=== PATIENT | male | born 1950 | race Caucasian/White ===

== ENCOUNTER 2025-05-09 14:42 | Outpatient (CLI) | payer MEDICARE, BC, SELFPAY | END 2025-05-09 14:43 | disposition home or self-care (01) | PROVIDERS: PCP Family Medicine; Visit Provider Family Medicine | DX: M25.552 Pain in left hip (principal) | CPT/HCPCS: A0425; A0433 ==

== ENCOUNTER 2025-05-09 15:56 | Emergency (ER) | payer MEDICARE, BC, SELFPAY ==
--- OUTSIDE RECORDS SUMMARY | 2025-03-26 10:00 | XMS_ITS | Encounter Summary ---
Author Organization [employer] Address [address] [place] [address] Care Team Providers Care Cell Manager Name Role Phone Romulo Zimmer MD Primary Care Provider [phone] Reason for Visit * Reason Comments Lab Encounter Details Date Type Department Care Team (Late st Contact Info) Description 03/26/2025 10:00 AM CDT Nursing Visit [facility] Orthopedic [facility] [address] [place], [place] [address] Nurse, [facility] Screening examination for infectious disease Social History Tobacco Use Types Packs/Day Years Used Date Smoking Tobacco: Former Smokeless Tobacco: Never Comments:Quit smoking: Alcohol Use Standard Drinks/Week Comments Never 0 (1 standard drink = 0.6 oz pur e alcohol) AUDIT-C Answer Date Recorded Q1: How often do you have a drink containing alc ohol? Never 12/08/2020 Average Number of Drinks Not on file 021 Frequency of Binge Drinking Not on file 01/2021 Sex and Gender Information Value Date Recorded Sex Assigned at Not on file Legal Sex Male 11:13 PM CDT Gender Identity Not on file Sexual Orientation Not on file documented as of this encounter Progress Notes * Diogenes Lee RN - 03/26/2025 10:00 AM CDTAddended by: DIOGENES LEE on: 03/26/2025 04:04 PM Modules accepted: Level of Service * Diogenes Lee RN - 03/26/2025 10:00 AM CDT Patient seen for preoperative Staphylococcus aureus nasal screening. Procedure explained, patient verbalized understanding, and specimen collected without incident. Informational handout Screening & Treatment for Staphylococcus aureus Before Surgery, provided to patient. Patient will be called if results are positive. Verified preferred pharmacy: [id number] - [place], [place] - [facility] [place] [address] [[id number]] documented in this encounter Plan of Treatment Upcoming Encounters Date Type Department Care Team (Late st Contact Info) Description 05/26/2025 10:20 AM CDT Appointment [facility] Orthopedic [facility] [address] [place] [address] Lizzy Crews, PA-C [address] [place] [phone] documented as of this encounter Goals Goal Patient Goal Type Associated Problems Recent Progress Patient-Stated? Author GENERAL OUTCOMES KNEE REPLACEMENT - RIGHT Care Plan ET PROE GENERAL OUTCOMES KNEE REPLACEMENT - RIGHT No Carlos Macdonald Right Knee Replacement Care Plan ET PROE RIGHT KNEE No Carlos Macdonald GENERAL OUTCOMES HIP REPLACEMENT - LEFT Care Plan ET PROE GENERAL OUTCOMES HIP REPLACEMENT - LEFT No Carlos Macdonald HIP REPLACEMENT - LEFT Care Plan ET PROE HIP REPLACEMENT - LEFT No Carlos Macdonald ET PROE LEFT HIP REPLACEMENT EDUCATION Care Plan ET PROE LEFT HIP REPLACEMENT EDUCATION No Carlos Macdonald documented as of this encounter Procedures Procedure Name Priority Date/Time Associated Diagnosis Comments MRSA/MSSA PRE-OP CULTURE Routine 03/26/2025 9:15 AM CDT Screening examination for infectious disease documented in this encounter Results * MRSA/MSSA Pre-Op Culture (Nares, left & right) (03/26/2025 9:15 AM CDT) Staph aureus Culture (SACUL) No Staphylococcus aureus Isolated 03/27/2025 4:44 PM CDT [facility] Swab (Source Required) ENTIRE ANTERIOR NARIS / Unknown Non-blood Collection / Unknown 03/26/2025 9:15 AM CDT 03/26/2025 9:20 AM CDT us Brian Pan MD LAB_1 Final Resu lt Performing Organization Address City/State/[facility] Co de Phone Number [address] documented in this encounter Visit Diagnoses Diagnosis Screening examination for infectious disease Screening examination for unspecified infectious disease documented in this encounter Additional Health Concerns Active Problems Noted Date Diagnosed Date ET PROE SHELL PROBLEM TEMPLATE 07/17/2024 ET PROE GENERAL OUTCOMES KNEE REPLACEMENT - RIGH T 07/17/2024 ET PROE RIGHT KNEE 07/17/2024 ET PROE SHELL PROBLEM TEMPLATE 03/23/2025 ET PROE GENERAL OUTCOMES HIP REPLACEMENT - LEFT 03/23/2025 ET PROE HIP REPLACEMENT - LEFT 03/23/2025 ET PROE LEFT HIP REPLACEMENT EDUCATION documented as of this encounter Care Teams Cell Manager Relationship Specialty Start Date End Date Romulo Zimmer MD [address] [place] [address] PCP - General Family Practice 04/15/24 documented as of this encounter
--- OUTSIDE RECORDS SUMMARY | 2025-03-30 14:00 | XMS_ITS | Encounter Summary ---
Author Organization [employer] Address [address], [place] [address] Care Team Providers Care Injection Molding Engineer Name Role Phone Romulo Zimmer MD Primary Care Provider [phone] Reason for Visit * Reason Comments Patient Education Encounter Details Date Type Department Care Team (Late st Contact Info) Description 03/30/2025 2:00 PM CDT Phone Visit [facility] [place] [address] [place] [id number] Nurse, [id number] Ortho Encounter for education (Primary Dx) Social History Tobacco Use Types Packs/Day Years [...] as of this encounter Progress Notes * Madina Page RN - 03/30/2025 2:00 PM CDT David flores 75 y.o. male was CALLED on 03/30/2025 for a nurse pre- surgery planning and joint replacement educational visit. The patient is scheduled for a left hip replacement with Dr. Pan on 04/08/2025. The patient was educated for an overnight stay. Pt is scheduled as AMB with Extended Obs. Specific Concerns: - s/p L TKA [address] Campos - s/p R TKA 09/14/[address] Campos - Pt inquired about the [employer] for hips. He had used them both with his two TKA's and would love to use one after the DEEJAY - Gave him the number for [facility] to rent. 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 Also that he should leave it at home, do not bring to the hospital. He verbalized understanding. Dashboard Status - [facility] Response Summary Preop- - QNRs completed: 01/08 - Response taken: Encouraged pt to continue doing online MTDL education. Preoperative History and Physical: Preoperative physical is completed. 03/23/2025 Preoperative Physical Therapy Evaluation: Preoperative PT consultation is not scheduled. Pt just had sx for his right knee in September. Pt doing the exercises. CPAP: Does patient have a diagnosis of GENTRY? No Falls Risk? No History of known antibodies in the blood? Yes/No: No If yes, encounter to be routed to surgeon. Venous Thromboembolism Risk Assessment Prior to Total Joint Answers below based on completion of venous thromboembolism prophylaxis risk assessment checklist completed by the patient. Date Completed: 03/30/2025 1. Current long-term anticoagulation other than Aspirin: No Medication: 2. Hx of DVT or PE: No Location: 3. Family hx of DVT or PE: No Whom: Location: 4. Positive for any of the following -- Lupus Anticoagulant, Factor VII Excess, Anti-Cardiolipin Antibodies, Anti-Phospholipid Antibodies, Anti-Thrombin III Deficiency, Protein C Deficiency, Factor VLeiden, Prothrombin (Factor II) Mutation, Protein S Deficiency : No 5. Hemophilia: No 6. Treatment for cancer or myeloproliferative disorder within the last year: No MRSA MSSA Screening: Education was provided today regarding screening for MRSA and MSSA prior to surgery. If screening complete: Date Completed- 03/26/2025 Results- Negative Dental Procedures: Any dental issues at this time: no Recommended to complete any necessary dental care prior to surgery and to wait 3 months after jointreplacement surgery for any routine care. Also discussed if surgeon recommends, then patient may need to take antibiotics prior to dental appointments after total joint surgery. Latex, Anesthesia, Metals Allergies or Intolerances: The patient does not report an allergy to latex. Reaction: n/a The patient does not report an allergy to or history of adverse reaction to anesthesia. Reaction: n/a The patient does not report an allergy to or history of adverse reaction to metals or jewelry. Reaction: n/a Senior Java Programmer: Senior Java Programmer Name: Selam Benito Relationship to the patient: The patient is aware that choosing a college basketball coach is very important. The college basketball coach needs to be available for pre and post op support/education, transportation, assisting the patient at home and being available to stay with the patient for the first few days after discharge, as needed. Hospital Discharge Planning: The patient was provided with discharge tools to assist in planning recovery following a 1 night hospital stay. Preferred location of discharge would be to Home with help from family. Pt is going to do PT close to home at [facility] and [facility] ) starting maybe 04/12, he was going to check. The patient understands that the insurance company should be contacted to verify coverage for any possible scenario that may occur upon discharge. Equipment the patient owns or has available to them after discharge- Walker and cane Social Screening Patient was instructed to reduce intake of tobacco, caffeine, and alcohol products prior to surgery. Hoahaoism or cultural practices hospital staff to be aware of: yes, Hoahaoism. Ronni CHG Cloths and Skin Conditions: Instructions for use of Ronni CHG Cloths reviewed with the patient. Also reviewed with the patient that the skin should remain free of any sores or rashes prior to surgery. Instructed to call if any changes in skin integrity prior to surgery. Pain Medication Review: What medication(s) is the patient currently taking for pain? Meloxicam daily What is the condition(s) that the medication is being taken for? Left knee pain Has the patient been seen at a pain clinic. No Should a Palliative Care Consult be considered upon admission: No, he felt the Oxycodone was dosed too low, wished he had something stronger Allergies or intolerances to specific pain medications: no Post-op Pain Medication Refills Reviewed with the patient to contact surgeon's office for medication refill requests and to plan ahead for weekends. Discussed discontinuing all supplements and fish oil at this time as well as discontinuing use of all NSAIDS seven days prior to surgery. Has the patient been diagnosed with an anxiety disorder? No If yes, triggers: n/a Hospital Stay The patient was reminded that while in the hospital there will be several nurses in monitoring vital signs as they recover the first day. The patient was instructed to always use the call light when needing to get out of bed while in the hospital. Reasoning for these actions were provided and the patient verbalized understanding. Workability and Handicapped Parking: Patient instructed to send work or disability forms to surgeons at least 3-4 weeks prior to surgery. Disability parking permit form given to the patient: Yes, will send one in the mail. If no patient has already received this form prior to appointment. All questions were answered today and the patient verbalized understanding. Instructed patient to review Hip and Knee Replacement Care Guide that was talked about today and materials given at the time of scheduling surgery. The patient was provided with the phone number to call back with any additional questions or concerns. Nurse visit completed by Madina Page RN documented in this encounter Plan of Treatment Upcoming Encounters Date Type Department Care Team (Late st Contact Info) Description 05/26/2025 10:20 AM CDT Appointment [address] [address] Lizzy Crews, PARamezC [address] [place] [address] documented as of this encounter Goals Goal Patient Goal Type Associated Problems Recent Progress Patient-Stated? Author GENERAL OUTCOMES KNEE REPLACEMENT - RIGHT Care Plan ET PROE GENERAL OUTCOMES KNEE REPLACEMENT - RIGHT No Carlos Macdonald Messi Right Knee Replacement Care Plan ET PROE RIGHT KNEE No Carlos Macdonald GENERAL OUTCOMES HIP REPLACEMENT - LEFT Care Plan ET PROE GENERAL OUTCOMES HIP REPLACEMENT - LEFT No Carlos Macdonald HIP REPLACEMENT - LEFT Care Plan ET PROE HIP REPLACEMENT - LEFT No Carlos Macdonald Messi ET PROE LEFT HIP REPLACEMENT EDUCATION Care Plan ET PROE LEFT HIP REPLACEMENT EDUCATION No Torres Carlos Messi documented as of this encounter Visit Diagnoses Diagnosis Encounter for education- Primary documented in this encounter Additional Health Concerns [...] documented as of this encounter Care Teams Injection Molding Engineer Relationship Specialty Start Date End Date Romulo Zimmer MD [address] [place] [id number] PCP - General Family Practice 04/15/24 documented as of this encounter
--- OUTSIDE RECORDS SUMMARY | 2025-04-08 06:35 | XMS_ITS | Encounter Summary ---
Author Organization [facility] Address [address], [place] [address] Care Team Providers Care State Historical [employer] Director Name Role Phone Romulo Zimmer MD Primary Care Provider [phone] Reason for Referral * Procedure/Equipment (Routine) - Incomplete Specialty Diagnoses / Procedures Referred By Contac t Referred To Contact Procedures XR Pelvis W Lt Lateral Hip Lizzy Crews PA-C [address] [place] [address] Phone: tel: fax: Referral ID Status Reason Start Date Expiration Date V isits Requested Visits Authorized [id number] Incomplete 04/08/2025 07/08/2026 1 1 * (Routine) - New Request Specialty Diagnoses / Procedures Referred By Contac t Referred To Contact Procedures Physical Therapy Eval and Treat twice a day beginning Today Lizzy Crews PA-C [address] [place] [address] Phone: tel: fax: Referral ID Status Reason Start Date Expiration Date V isits Requested Visits Authorized [id number] New Request 04/08/2025 07/08/2026 1 1 * Procedure/Equipment (Routine) - Incomplete Specialty Diagnoses / Procedures Referred By Contac t Referred To Contact Procedures FL C Arm Brian Pan MD [address] [place] [address] Phone: tel: fax: Referral ID Status Reason Start Date Expiration Date V isits Requested Visits Authorized [id number] Incomplete 04/08/2025 07/08/2026 1 1 * (Routine) - Incomplete Specialty Diagnoses / Procedures Referred By Contac t Referred To Contact Procedures ECG 12 Lead Inpatient Brian Pan MD [address] [place] [address] Phone: tel: fax: Referral ID Status Reason Start Date Expiration Date V isits Requested Visits Authorized [id number] Incomplete 04/08/2025 07/08/2026 1 1 Reason for Visit * Auth/Cert Specialty Diagnoses / Procedures Referred By Contac t Referred To Contact Diagnoses Closed fracture of head of left femur, initial encounter ([facility]) Procedures ANTERIOR TOTAL HIP JOINT REPLACEMENT Referral ID Status Reason Start Date Expiration Date Visits Re quested Visits Authorized [id number] 1 1 Encounter Details Date Type Department Care Team (Late st Contact Info) Description 04/08/2025 6:35 AM CDT - 04/09/2025 2:12 PM CDT Hospital Encounter Religion [address] [place], [place] [id number] Brian Pan MD [address] [place] [phone] Pain (Primary Dx) Discharge Disposition: Home Social History Tobacco Use Types Packs/Day Years Used Date Smoking Tobacco: Former Smokeless Tobacco: Never Comments:Quit smoking: Alcohol Use Standard Drinks/Week Comments Never 0 (1 standard drink = 0.6 oz pur e alcohol) [facility] Utilities Answer Date Recorded In the past 12 months has e electric, gas, oil, or water company threatened to shut off services in your home? No 04/08/2025 Humiliation, Afraid, Rape, and Kick questionnair e Answer Date Recorded Within the last year, have y ou been afraid of your partner or ex-partner? No 04/08/2025 Within the last year, have y ou been humiliated or emotionally abused in other ways by your partner or ex-partner? No Within the last year, have y ou been kicked, hit, slapped, or otherwise physically hurt by your partner or ex-partner? No 04/08/2025 Within the last year, have y ou been raped or forced to have any kind of sexual activity by your partner or ex-partner? No 04/08/2025 AUDIT-C Answer Date Recorded Q1: How often do you have a drink containing alc ohol? Never 12/08/2020 Average Number of Drinks Not on file 021 Frequency of Binge Drinking Not on file 01/2021 Hunger Vital Sign Answer Date Recorded Within the past 12 months, y ou worried that your food would run out before you got the money to buy more. Never true 04/08/20 25 Within the past 12 months, t he food you bought just didn't last and you didn't have money to get more. Never true 04/08/2025 PRAPARE - Transportation Answer Date Re corded In the past 12 months, has l ack of transportation kept you from medical appointments or from getting medications? No 12/2024 In the past 12 months, has l ack of transportation kept you from meetings, work, or from getting things needed for daily living? No 04/08/2025 Housing Stability Vital Sign Answer Manuel e Recorded In the last 12 months, was t here a time when you were not able to pay the mortgage or rent on time? No 04/08/2025 Number of Times Moved in the Last Year Not on fi le 04/08/2025 At any time in the past 12 m [facility], were you homeless or living in a fdc (including now)? No 04/08/2025 Sex and Gender Information Value Date Recorded Sex Assigned at Not on file Legal Sex Male 11:13 PM CDT Gender Identity Not on file Sexual Orientation Not on file documented as of this encounter Last Filed Vital Signs Vital Sign Reading Time Taken Comments Blood Pressure 120/72 04/09/2025 10:37 AM CDT Pulse 57 04/09/2025 10:37 AM CDT Temperature 36.3 C (97.4 F) 04/09/2025 10:37 AM CDT Respiratory Rate 18 04/09/2025 10:37 AM CDT Oxygen Saturation 93% 04/09/2025 10:37 AM CDT Inhaled Oxygen Concentration - - Weight 110.2 kg (243 lb) 04/08/2025 7:12 AM CDT Height 177.8 cm (5' 10) 04/08/2025 7:12 AM CDT Body Mass Index 34.87 04/08/2025 7:12 AM CDT documented in this encounter Functional Status documented as of this encounter Discharge Summaries * Flakita Ramires PA-C - 04/09/2025 9:58 AM CDT Ortho Discharge Summary Admission Date: 04/08/2025 Discharge Date: 04/09/2025 Admitting Diagnosis: Closed fracture of head of left femur, initial encounter ([facility]) [S72.052A] Discharge diagnosis: s/p left total hip arthroplasty Procedure: Procedure(s) (LRB): ANTERIOR TOTAL HIP JOINT REPLACEMENT (Left) Date of Procedure: 04/08/2025 Surgeon: Dr. Pan Disposition: home Code Status: Full Discharge condition: stable HPI: Patient is a 75 y.o., he who presents with left hip pain/left subchondral fracture of the femoral head. For full details please refer to Dr. Pan's notes. Surgical management was recommended and patient underwent Procedure(s) (LRB): ANTERIOR TOTAL HIP JOINT REPLACEMENT (Left). Patient today doing well. Pain is well controlled. Denies nausea, vomiting, chest pain, SOB, fevers, chills, paresthesias, dizziness, lightheadedness. Lives with his who will provide support, does join at bedside later in the morning. Hospital Course: Patient was admitted following the above noted procedure. Procedure was without complication. For full details please refer to operative note. Patient received routine warren-operative antibiotic and DVT prophylaxis. he was evaluated by physical therapy and will discharge to home in stable condition. Consults: Patient was followed as an inpatient by a medical consultation. Significant Studies: Lab Results Component Value Date Hemoglobin 13.6 04/09/2025 Hemoglobin 16.0 04/08/2025 Lab Results Component Value Date Creatinine 0.86 04/09/2025 BUN 29 (H) 04/09/2025 Sodium 137 04/09/2025 Potassium 4.7 04/09/2025 Chloride 102 04/09/2025 CO2 27 04/09/2025 Recent Labs 04/09/25 1021 WBC 10.2 RBC 4.22* HCT 39.4 PLTS 153 HGB 13.6 No results for input(s): INR, PTT in the last 24 hours. Invalid input(s): PT I/O last 3 completed shifts: In: 120 [Oral:120] Out: 700 Active Problems: Principal Problem: Status post total replacement of left hip Active Problems: Closed fracture of head of left femur (HRC) Essential hypertension (HRC) IFG (impaired fasting glucose) Dysthymia (HRC) Past Medical Diagnoses: Patient Active Problem List Diagnosis Closed fracture of head of left femur (HRC) Arthritis of wrist, right Benign neoplasm of colon Essential hypertension ([facility]) Pure hypercholesterolemia History of total bilateral knee replacement Class 1 obesity with serious comorbidity and body mass index (BMI) of 34.0 to 34.9 in adult Status post total replacement of left hip IFG (impaired fasting glucose) Dysthymia (HRC) Medications: Medication List START taking these medications acetaminophen 500 MG tablet Commonly known as: TYLENOL Take 2 Tablets (1,000 mg) by mouth three times a day. 24 hour limit of acetaminophen (TYLENOL) is 4000mg. Indications: Pain aspirin EC 81 MG enteric coated tablet Take 2 Tablets (162 mg) by mouth daily for 42 days. If on previous aspirin, resume previous aspirindosing after 42 days. Indications: thrombosis prevention following orthopedic surgery HYDROmorphone 2 MG tablet Commonly known as: DILAUDID Take 1-2 Tablets (2-4 mg) by mouth every 4 hours as needed for Pain. Take 1 tablet for pain rated at 4-7. Take 2 tablet for pain rated 8-10. Indications: Moderate to Moderately Severe pain polyethylene glycol 3350 17 GM/SCOOP powder Commonly known as: GLYCOLAX Take 17 g by mouth daily as needed (constipation). Fill to indicated line in cap (17 g). Mix in 4-8ounces of a beverage and drink once daily as needed for constipation. Indications: Constipation senna 8.6 MG tablet Commonly known as: SENOKOT Take 2 Tablets by mouth daily at bedtime. Take while on narcotics. Hold for loose stools. Indications: Constipation CONTINUE taking these medications amLODIPine 5 MG tablet Commonly known as: NORVASC amoxicillin 500 MG tablet Commonly known as: aka AMOXIL Take all 4 tablets one hour before dental work. atorvastatin 40 MG tablet Commonly known as: LIPITOR lisinopril-hydroCHLOROthiazide 20-12.5 MG tablet Commonly known as: PRINZIDE Meloxicam 15 MG tablet Commonly known as: MOBIC multivitamin tablet STOP taking these medications unknown medication Where to Get Your Medications These medications were sent to [facility] [address] [place] [address] Hours: Open 24x7 acetaminophen 500 MG tablet aspirin EC 81 MG enteric coated tablet HYDROmorphone 2 MG tablet polyethylene glycol 3350 17 GM/SCOOP powder senna 8.6 MG tablet Discharge Exam: BP 120/72 (BP Cuff Size: Regular) Pulse (!) 57 Temp 36.3 ??C (97.4 ??F) (Oral) Resp 18 Ht 1.778 m (5' 10) Wt 110.2 kg (243 lb) SpO2 93% BMI 34.87 kg/m?? Normal exam - Patient is in no acute distress. Patient alert, has normal respiratory effort, DistalCMS is intact. Calf is soft and nontender 2+ DP pulses. Abnormal exam - Mepilex dressing is CDI. Assessment and Plan: Status post left total hip arthroplasty POD #1. PLEASE REFER TO HOSPITALIST NOTES FOR DIAGNOSIS SPECIFICS WBAT, no precautions Wound care- Mepilex to stay in place until follow up appointment. Pain - well controlled, continue current regime Constipation- narcotic induced, senna and MOM. Hgb monitoring -13.6; asymptomatic, no acute s/s of bleeding Physical deconditioning - PT/OT, continue WBAT to Left LE Obesity - Estimated body mass index is 34.87 kg/m?? as calculated from the following: Height as of this encounter: 1.778 m (5' 10). Weight as of this encounter: 110.2 kg (243 lb). VTE prophylaxis/Anticoagulation - Aspirin 162mg DAILY x 6 weeks Medicine to complete med rec prior to discharge Follow up: Discharge Procedure Orders Activity as Tolerated Order Comments: Do your exercises as instructed, but remember walking is your best exercise. Use 1 to 2 pillows between your legs while in bed for comfort. Do the exercises instructed by your Physical Therapist Order Comments: At least twice per day Weight bearing as tolerated Apply Ice Order Comments: Apply ice (but not directly to your skin) as needed to ease discomfort and reduce swelling Do not soak in bathtub, hot tub or pool until your incision is completely healed May Shower Incision care Order Comments: Do NOT apply creams, lotions, powder or hydrogen peroxide to the incision Dressing care Order Comments: Let the water run over your dressing. Leave the dressing on until your first orthopedic follow up appointment. If you have trouble with your dressings, please call your surgeon Eat fiber and drink fluids Order Comments: Eat fiber (whole grains, fruits and vegetables) and drink plenty of fluids to prevent constipation. Pain medication can cause constipation. Call if you experience any of the following Order Comments: [1] Fever of 101 degrees Fahrenheit or 38 degrees Celsius or higher and /or chills. [2] Severe pain not relieved with pain medication. [3] Bleeding from the incision that does not stop. [4] Signs of a surgical infection: increased or foul-smelling drainage and/or extreme redness, warmth, tenderness or swelling around the incision and/ or separation of the skin closures. Call for any surgical and wound concerns Order Comments: Call [phone] (orthopedic triage nurse line) 8:00 AM to 5:00 PM Saturday-Saturday. Call [phone] (Orthopedic office) evening hours, weekend and holidays. Not all post-operative infections can be prevented, but early detection and proper treatment can prevent major catastrophes. Do not start antibiotics for incision infections without contacting the orthopedic surgeon first. IF in doubt, call the orthopedic surgeon. For non-urgent orthopedic questions Order Comments: Call [facility]opedic Nurse Triage at [phone] Saturday-Saturday 8:00 AM to 5:00 PM. Pain Medication Refills Order Comments: Contact your pharmacy or surgeon's office. Please allow at least 2 business days for these requests to be addressed. Pain medications will NOT be refilled on weekends, holidays, or after 4:30 PM on weekdays. Please be aware that some insurance companies have specific regulations on coverage of pain medication; please ensure you are familiar with your insurance prescription coverage. Contact your Primary Care Provider for medical issues Do not drive Order Comments: Until you have been seen for your follow-up appointment and are OK'd for driving. Do not drink alcohol or make any major decisions, such as signing important papers or managing legal issues, while taking prescription pain medication. Prevent pneumonia after surgery Order Comments: *Use your incentive spirometer 10 times an hour while you are awake and continue this for 2 weeks after your surgery. *Practice coughing after each set of incentive spirometer use *Practice good oral care. [place] your teeth and use mouthwash twice daily. Dental appointments after surgery Order Comments: Please wait until you are 6 months out from surgery before any routine, non-urgent,dental appointments. If you have an emergent dental need prior to 6 months please call your orthopedic surgeon's office to discuss taking antibiotics prior to this emergent dental appointment. After 6 months you may need to take antibiotics prior to dental appointments. If you are unsure andthis has not been discussed at one of your post-op appointments please contact your surgeon's office to discuss further. Hip Precautions: none Order Comments: Move to your comfort level Regular Diet Order Comments: Removal of stiches or contreras Order Comments: They will be removed at your follow up appointment, about 14 days after your surgery. Educational handouts provided: Hip and Knee Replacement Care Guide Preparing for Surgery and Becoming Active Again No follow-up provider specified. Total time spent on discharge on day of discharge 35 minutes For full discharge orders and instructions, please see the after visit summary for this hospitalization. Flakita Ramires PA-C 11:29 AM 04/09/2025 documented in this encounter Discharge Instructions * Attachments The following attachments cannot be sent through Care Everywhere. * Hip: Arthroscopy: Post op (Hebrew) documented in this encounter Medications at Time of Discharge amLODIPine (NORVASC) 5 MG tabletIndication s:Hypertension Take 1 Tablet (5 mg) by mouth daily. Per patient report Indications: High Blood Pressure 04/09/2025 aspirin EC 81 MG enteric coated tabletIndication s:thrombosis prevention following orthopedic surgery Take 2 Tablets (162 mg) by mouth daily for 42 days. If on previous aspirin, resume previous aspirin dosing after 42 days. Indications: thrombosis prevention following orthopedic surgery 84 Tablet 04/09/2025 1:09 PM CDT 04/08/2025 5 atorvastatin (LIPITOR) 40 MG tablet Take 1 Tablet (40 mg) by mouth daily. lisinopril-hydro CHLOROthiazide (PRINZIDE) 20-12.5 MG tablet Take 1 Tablet by mouth daily. 12/06/2020 Meloxicam (MOBIC) 15 MG tablet Take 1 Tablet (15 mg) by mouth daily. 03/04/2025 multivitamin (THERAGRAN) tablet Take 1 Tablet by mouth daily. acetaminophen (TYLENOL) 500 MG tabletIndication s:Pain Take 2 Tablets (1,000 mg) by mouth three times a day. 24 hour limit of acetaminophen (TYLENOL) is 4000mg. Indications: Pain 100 Tablet 04/09/2025 1:09 PM CDT 04/08/2025 5 amoxicillin (AKA AMOXIL) 500 MG tablet Take all 4 tablets one hour before dental work. 4 Tablet 3 02/24/2025 5 HYDROmorphone (DILAUDID) 2 MG tabletIndication s:Moderate to Moderately Severe pain Take 1-2 Tablets (2-4 mg) by mouth every 4 hours as needed for Pain. Take 1 tablet for pain rated at 4-7. Take 2 tablet for pain rated 8-10. Indications: Moderate to Moderately Severe pain 25 Tablet 04/09/2025 1:09 PM CDT 04/08/2025 5 polyethylene glycol 3350 (GLYCOLAX) 17 GM/SCOOP powderIndication s:Constipation Take 17 g by mouth daily as needed (constipation). Fill to indicated line in cap (17 g). Mix in 4-8 ounces of a beverage and drink once daily as needed for constipation. Indications: Constipation 238 g 04/09/2025 1:09 PM CDT 04/08/2025 5 senna (SENOKOT) 8.6 MG tabletIndication s:Constipation Take 2 Tablets by mouth daily at bedtime. Take while on narcotics. Hold for loose stools. Indications: Constipation 60 Tablet 04/09/2025 1:09 PM CDT 04/08/2025 5 documented as of this encounter Progress Notes * Ilana Garcia RN - 04/09/2025 2:00 PM CDT DISCHARGE O: Patient safely discharged to home. D: Patient is alert and oriented x 4. Pt up independently with assistive device . Discharge criteria met. Vaccines addressed prior to discharge. A: Discharge instructions and medications reviewed and given to patient and significant other. Written medication education material provided on Tylenol, aspirin, dilaudid, Glycolax & senna including possible side effects. Prescriptions filled by [facility] pharmacy. Belongings checklist reviewed with patient and significant other and belongings sent. Equipment sent: none. Supplies sent none. Care plan issues addressed and education record updated. R: Patient and significant other verbalizes understanding and teaches back discharge instructions. Patient discharged by: wheelchair with staff. * Kiesha Pereira RN - 04/09/2025 1:00 PM CDT Patient. A&O. Pain 3/10, no c/o acute distress. Dreg has scant drainage, old. SBA to toilet, voiding, refused pain med and schedule Tylenol. Stable for dc home. * Cyndi Mack OTR/Vikas - 04/09/2025 7:37 AM CDT Occupational Therapy ADL Progress Note/Discharge Summary Age: 75 y.o. Sex: male Admit date: 04/08/2025 Past Medical History: Diagnosis Date Class 1 obesity with serious comorbidity and body mass index (BMI) of 34.0 to 34.9 in adult 04/08/2025 Dysthymia (HRC) History of total bilateral knee replacement 04/08/2025 L TKA 12/12/20, R TKA 09/14/24. Both by Dr. Campos with [facility]. HTN (hypertension) (HRC) Hyperlipidemia ([facility]C) IFG (impaired fasting glucose) Status post total replacement of left hip 04/08/2025 Anterior L DEEJAY for femoral head subchondral fractures as well as to acetabulum. By Dr. Pan at [facility]. Subjective/General Information Reason for admit/therapy consult: s/p L DEEJAY on 04/08/25 Living Arrangements: Spouse, House Home Accessibility: stairs to enter home Prior equipment mobility: Cane, standard Prior equipment ADL: Grab bars, Raised toilet seat, Shower chair Available equipment: Walker, 2 wheeled, Cane, standard Prior level of function details: Patient enjoys working around the house and fixing things. is retired and can assist upon return home. Education Level: Patient Self Report: Agreeable to OT, hopeful to go home Pain: At rest 4/10, 0//10 with activity Tolerance/Cooperation: good Objective Location of treatment: OT department Existing Precautions/Restrictions: hip Hip Precautions: no hip precautions LLE Weight-Bearing Status: weight-bearing as tolerated Special Equipment: None Communication: verbal/appropriate Orientation: Oriented x 3 AM-PAC Activities of Daily Living (ADLs) AM-PAC Functional Task Assist Needed Prior to Admission Assist Needed Current Putting on and taking off regular lower body clothing 4-->None (independent) 4-->None (independent) Bathing (including washing, rinsing, drying) 4-->None (independent) 4-->None (independent) Toileting, which includes using toilet, bedpan or urinal 4-->None (independent) 4-->None (independent) Putting on and taking off regular upper body clothing 4-->None (independent) 4-->None (independent) Taking care of personal grooming such as brushing teeth 4-->None (independent) 4-->None (independent) Eating meals 4-->None (independent) 4-->None (independent) Raw Score (6-24, higher is more independent) 24 24 Percent Impaired 0.00% impaired 0.00% impaired Instrumental Activities of Daily Living (IADLs) Functional Task Assist Needed Prior to Admission Assist Needed Current Meal Preparation None (independent) A little (sup/min A) Household Management/Laundry None (independent) A little (sup/min A) Medication Management None (independent) None (independent) Money Management None (independent) None (independent) Driving Drives Independently Defer to practitioner Working Retired Treatment Today/Patient Education Gait/Mobility/AE: Ambulates mod independently with FWW functional distances ADL's/IADL's: To further assess pt's safety and independence with all ADLs/IADLs for a safe return home pt participated in the following: LE Dressing: Mod independent do blossom/doff socks and shorts using sock aid Bed: independent Shower: mod independent Toilet: mod independent Kitchen: Educated pt on keeping commonly used items within reach in fridge and cabinets, stabilizing with one arm on counter when bending/reaching, transporting heavier items on countertop, and sitting when able during meal prep. Pt demonstrated understanding with retrieving low items from refrigerator. Declined walker bag. UE Function: WFL for session ADLs Cognition: follows instructions appropriately, oriented as above Vision: WFL for session ADLs Timed Code Treatment Minutes: 23 Total Treatment Minutes: 23 Interdisciplinary Communication: PT Status of functional goals: Patient will demonstrate lower body dressing (with adaptive equipment as needed) with standby assist in 3 days. MET Patient will demonstrate bed transfer/bed mobility (with adaptive equipment as needed) with standbyassist in 3 days.MET Patient will demonstrate toileting/toilet transfer (with adaptive equipment as needed) with standbyassist in 3 days.MET Patient will demonstrate walk-in/tub shower transfers (with adaptive equipment as needed) with standby assist in 3 days.MET Patient will demonstrate kitchen mobility/household mobility with standby assist in 3 days.MET Assessment and Plan Assessment: Pt functioning at mod independent levels with ADLs and functional mobility. Safe to discharge home with family assistance as needed with IADLs. No additional OT indicated while hospitalized or upon d/c. Discharge Recommendations: (OT) Discharge Recommendations: Patient is safe to return to their prior living situation (OT) Discharge Readiness: No need to wait for therapy if medically ready for discharge (OT) Rehab Potential: Good potential, to return to prior level of function with self cares (OT) Post-Acute Care Therapy Recommendations: No anticipated therapy needed after discharge (OT) Anticipated Equipment Needs at Discharge: Has own equipment (OT) Discharge Recommendations Discussion: Discussed with, patient IP Frequency: discharged Plan for next session: NA DC OT Therapist signature: Cyndi Mack OTR/Vikas 8:54 AM 04/09/2025 * Jessy Roland, PT - 04/09/2025 7:31 AM CDT Physical Therapy Inpatient Initial Evaluation Date of Admit: 04/08/2025 Reason for Admit/Therapy Consult: s/p L DEEJAY on 04/08/25 Rehab Diagnosis: Pain, Decreased range of motion, Weakness, Deconditioning, and Impaired mobility Past Medical History: Past Medical History: Diagnosis Date Class 1 obesity with serious comorbidity and body mass index (BMI) of 34.0 to 34.9 in adult 04/08/2025 Dysthymia (HRC) History of total bilateral knee replacement 04/08/2025 L TKA 12/12/20, R TKA 09/14/24. Both by Dr. Campos with [facility]. HTN (hypertension) (HRC) Hyperlipidemia (HRC) IFG (impaired fasting glucose) Status post total replacement of left hip 04/08/2025 Anterior L DEEJAY for femoral head subchondral fractures as well as to acetabulum. By Dr. Pan at [facility]. Order: Eval and Treat: Issue appropriate assistive device and Total joint protocol Twice daily For Gait training: Active abduction to operative leg, Isometric, AAROM, AROM to operative leg. Strengthening exercises to other extremities as needed. SUBJECTIVE Mood: pleasant and alert Patient reports: Agreeable to PT, reports he feels much better today than yesterday. Pain: 4/10 in L hip Patient PT Goals: live more pain free Living Arrangements: Spouse, House Mobility Equipment Used at Baseline: Cane, standard ADL Equipment Used at Baseline: Grab bars, Raised toilet seat, Shower chair Available Equipment: Walker, 2 wheeled, Cane, standard Home Accessibility: stairs to enter home Number of Stairs, Entrance: 2, One railing OBJECTIVE Treatment Location: PT Department Special Equipment: None Precautions: weight bearing as tolerated left lower extremity and total hip precautions (none) Orientation: Not formally assessed, no apparent cognitive deficits noted Cooperation: Full -- Range of Motion: - Left hip ROM limited by pain/stiffness -- Strength: Not formally tested but good functional strength -- Sensation: intact to light touch bilateral lower extremities and patient denies numbness and tingling -- Endurance: adequate for household mobility -- Balance: -- sitting balance: good -- standing balance: good with FWW Gait: Equipment: front wheeled walker Assistance: modified independent Distance: 100 feet Gait Pattern: reciprocal, slow speed, antalgic left lower extremity, and decreased weight shift onto left lower extremity Instruction provided: progress to step-through pattern, weight bearing as tolerated, offload surgical lower extremity with upper extremities on assistive device as needed, and pacing to increase ambulation distance Stairs: Equipment: 2 railings Assistance: supervision # of steps: 3 up/down Pattern: Kxzk-[id number]-[id number] ascent and Step-to descent Instruction provided: step-to pattern - up leading with unaffected limb, down leading with affectedlimb Transfers: Supine to Sit: independent Sit to Supine: independent Sit to/from Stand: modified independent Treatment: Performed the following exercises x 10 reps to left lower extremity in supine: - heel slides - SAQ - quad sets - hamstring sets - ankle pumps - glute sets - hip abduction/adduction Education/Handouts: PT POC DC recommendations Ambulate 4 times per day Perform home exercise program 2 times per day Weight bearing restrictions Issued HEP handout Pain science education - pain does not mean something is wrong with your surgery, it is just yournerves signaling to your brain that something is different than before Ice frequently throughout the day for pain/swelling management Multidisciplinary Communication: occupational therapist Patient History: Low Complexity: No personal factors or comorbidities that impact plan of care Clinical Examination: Low complexity: Addressed 1-2 elements from body structures and functions (see above), and/or functional limitations as noted below. PT Clinical Presentation: Low Complexity: Stable and Uncomplicated Clinical Decision Making: Low Complexity Eval Timed codes: Therapeutic exercise x 8 minutes Total timed minutes: 8 Total treatment time: 20 minutes Prior Level of Function Details: Patient enjoys working around the house and fixing things. is retired and can assist upon return home. AM-PAC Mobility AM-PAC Functional Task Assist Needed Prior to Admission Assist Needed Current Turning in bed 4-->None (independent) 4-->None (independent) Lying to Sitting at edge of bed 4-->None (independent) 4-->None (independent) Bed to chair transfer 4-->None (independent) 4-->None (independent) Standing up from chair 4-->None (independent) 4-->None (independent) Walk in hospital room 4-->None (independent) 4-->None (independent) Distance walked (ft) Community ambulator (>1200 ft) 100 feet Climbing 3-5 stair with railing 4-->None (independent) 4-->None (independent) Assistive Device used Cane, standard gait belt, walker, 2 wheeled Raw Score (6-24, higher is more independent) 24 24 Percent Impaired 0.00% impaired 0.00% impaired ASSESSMENT Edilberto presents POD # 1 s/p L DEEJAY with manageable pain levels. He demonstrates safety and stability with necessary household mobility. No further IP PT needs. Discharge Recommendations: (PT) Discharge Recommendations: Patient is safe to return to their prior living situation (PT) Discharge Readiness: Goals met, no further inpatient therapy indicated (PT) Rehab Potential: Patient has met all goals, no further therapy needed. (PT) Post-Acute Care Therapy Recommendations: No anticipated therapy needed after discharge (PT) Anticipated Equipment Needs at Discharge: Has own equipment, Walker, 2 wheeled (PT) Discharge Recommendations Discussion: Discussed with, patient, patient agrees with recommendations Patient's impairments: Decreased strength in left lower extremity Decreased ROM in left lower extremity Decreased activity tolerance Pain Functional limitations: No limitations Barriers to Learning and Goal Achievement: None apparent Goals/Functional Outcomes: No goals required - evaluation only Rehab Potential: Good PLAN Planned intervention/education: Evaluation and Therapeutic Exercise Frequency: One time Duration: 1 day Goals and Plan of Care discussed with patient/family; patient consents to treatment: Yes Plan for Next Treatment: None - DC from PT NOTE: The clinician's signature certifies medical necessity for the treatment plan above. Cosigned by Lizzy Crews PA-C at 04/12/2025 8:57 AM CDT * Mukul Robertson MD - 04/09/2025 7:05 AM CDT DAILY PROGRESS NOTE CHIEF COMPLAINT: (L) DEEJAY SUBJECTIVE: The patient doing well. Denies dizziness, SOB, CP, N/V abd pain or LE edema OBJECTIVE: BP (!) 138/93 (BP Cuff Size: Regular) Pulse 64 Temp 36.2 ??C (97.2 ??F) (Oral) Resp 17 Ht 1.778 m (5' 10) Wt 110.2 kg (243 lb) SpO2 93% BMI 34.87 kg/m?? General appearance: alert, cooperative, no distress, appears stated age, Lungs: clear to auscultation bilaterally, Heart: regular rate and rhythm, Abdomen: (+) BS, soft, NT, and Extremities: edema none pretibial Labs and Imaging reviewed in [facility] and pertinent positives are as follows: Labs: A1C - 3 Results in last 6 Months : Recent Labs 04/08/25 0714 HGBA1C 6.5* Last BMP: Recent Labs 04/09/25 0725 GLWB 176 ASSESSMENT/PLAN: 75 yo male with HTN, IFG, dysthymia admitted 04/08 for (L) DEEJAY due to left femoral head subchondral fracture Patient Active Hospital Problem List: Essential hypertension (HRC) Assessment: stable Plan: resume amlodipine.lisinopril/HCTZ IFG (impaired fasting glucose)/DM2 Assessment: glucoses elevated postoperatively and HgbA1c 6.5. It was 6.2 previously Plan: follow glucoses, LDSSI, need to repeat HgbA1c as outpt in 3 months Closed fracture of head of left femur (HRC) Status post total replacement of left hip Assessment: POD#1 Plan: as per Ortho Complexity: moderate * Chely Kitchen, PT - 04/08/2025 4:34 PM CDT Physical Therapy Attempted to see pt for scheduled PT evaluation, pt with other provider, will reschedule for tomorrow. Chely Kitchen, PT 4:35 PM 04/08/2025 * Evelyn Murray RN - 04/08/2025 3:19 PM CDT Shift Update: [id number] Goals for Progression of Care: 1) stable post op period 2) Pain control 3) Participate in therapy 4) Void 5) Tolerate PO Outcomes of Goals: 1) VSS since return from PACU. Weaned to room air. 2) Good pain control with Tylenol and Dilaudid 3) Participated in OT so far 4) Has not voided yet. 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 Both by Dr. Campos with [facility]. 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 By Dr. Pan at [facility]. order: Eval and Treat: Orthopedic General Information: Living Arrangements: Spouse, House Home Accessibility: stairs to enter home ADL Equipment Used at Baseline: Grab bars, Raised toilet seat, Shower chair Available Equipment: Walker, 2 wheeled, Cane, standard Prior Level of Function Details: Patient enjoys working around the house and fixing things. is retired and can assist upon return home. Existing Precautions/Restrictions: hip Hip Precautions: no hip precautions LLE Weight-Bearing Status: weight-bearing as tolerated Special Equipment: Continuous pulse oximetry Communication: Verbal/appropriate and Hard of hearing Location of treatment: bedside, room 2W-26: Other services: Physical Therapy Objective information: Previous UE limitations: none Current UE function: current ROM: WFL Prior Visual Functioning: WFL per patient report Current Visual Functioning: Appears Intact GLASSES: Yes: distance Prior Cognitive Functioning: Patient reports no deficits Current Cognitive Functioning: Follows simple commands, Orientation ox3, and Alert AM-PAC Activities of Daily Living (ADLs) AM-PAC Functional Task Assist Needed Prior to Admission Assist Needed Current Putting on and taking off regular lower body clothing 4-->None (independent) 3-->A little (sup/min A) Bathing (including washing, rinsing, drying) 4-->None (independent) 3-->A little (sup/min A) Toileting, which includes using toilet, bedpan or urinal 4-->None (independent) 3-->A little (sup/min A) Putting on and taking off regular upper body clothing 4-->None (independent) 4-->None (independent) Taking care of personal grooming such as brushing teeth 4-->None (independent) 4-->None (independent) Eating meals 4-->None (independent) 4-->None (independent) Raw Score (6-24, higher is more independent) 24 21 Percent Impaired 0.00% impaired 32.79% impaired Instrumental Activities of Daily Living (IADLs) Functional Task Assist Needed Prior to Admission Assist Needed Current Meal Preparation None (independent) A lot (max/mod A) Household Management/Laundry None (independent) A lot (max/mod A) Medication Management None (independent) None (independent) Money Management None (independent) None (independent) Driving Drives Independently Defer to practitioner Working Retired Current ADL performance/additional information: Lower Body Dressing: with minimal assistance to don shorts Bed mobility: with minimal assistance Toileting/Toilet transfers: with contact guard assistance Gait/Mobility: with contact guard assistance with FWW to the bathroom and back Treatment/Education provided today: Instructed in role of OT and progression of care. Educated patient that he does not have hip precautions but to avoid extreme motions with ADLs. Patient verbalizedunderstanding. Subjective: Endurance/activity tolerance: Blood pressure 120/82 while sitting and taken on R UE. Cooperation: good Pain scale 0 to 10 (low to high): [facility]: [facility] Impairments: Patient's impairments are: Decreased endurance/activity tolerance, Generalized weakness Functional Limitations/Rehab Diagnosis: Above listed impairments limit patient's performance completing ADLs/IADLs safely and independently. Occupational Therapy Interventions: Patient's Occupational Therapy interventions are: Functional mobility Safety AE recommendations Transfers Endurance Plan/ Outcomes: The following goals have been established: Patient and family goals: Return home Functional outcome goals: Patient will demonstrate lower body dressing (with adaptive equipment as needed) with standby assist in 3 days. Patient will demonstrate bed transfer/bed mobility (with adaptive equipment as needed) with standbyassist in 3 days. Patient will demonstrate toileting/toilet transfer (with adaptive equipment as needed) with standbyassist in 3 days. Patient will demonstrate walk-in/tub shower transfers (with adaptive equipment as needed) with standby assist in 3 days. Patient will demonstrate kitchen mobility/household mobility with standby assist in 3 days. terminal clerk goal: Patient will maximize independence and safety with ADL/IADLs Treatment Frequency/Duration: daily 1-3 day(s) Treatment plan/goals reviewed with patient/family. Patient consents to treatment: Yes Potential Barriers to Goal Achievement/Learning: None apparent Evaluation Complexity Rating: Occupational profile and history: low complexity (brief review of medical and or therapy records related to presenting problem) Examination/Assessment: low: 1-3 performance deficits Please see function and assessment sections. Clinical decision making: low: limited treatment options, no co-morbidities, no modifications Overall complexity: low Timed Code Treatment Minutes: 2 Total Treatment Minutes: 25 Plan for next session: OT department. See next 04/09 LE dress with AE, bed, toilet, shower, kitchen, car Assessment: Patient is limited by pain and decreased endurance that impacts his performance in selfcares. Discharge Recommendations: (OT) Discharge Recommendations: Anticipate patient will be safe to return to their prior living situation within the anticipated length of stay (OT) Discharge Readiness: Patient needs to remain hospitalized for therapy follow-up (OT) Rehab Potential: Good potential, to return to prior level of function with self cares (OT) Post-Acute Care Therapy Recommendations: No anticipated therapy needed after discharge (OT) Anticipated Equipment Needs at Discharge: Has own equipment (OT) Discharge Recommendations Discussion: Discussed with, patient, family/child care coordinator Signature: Emelia Garnica OTR/L 3:49 PM 04/08/2025 NOTE: The clinician's signature certifies medical necessity for the treatment plan above. Cosigned by Lizzy Crews PA-C at 04/08/2025 3:57 PM CDT * Evelyn Murray RN - 04/08/2025 1:10 PM CDT POST-OP O: Patient will have a stable post-op period. D: Pt arrived to room [id number], at 1310 (time). Patient is alert and oriented x 4. Initial Vital Signs: Temp: 36.2 ??C (97.2 ??F) (04/08/25 1310) Pulse: 61 (04/08/25 1331) Resp: 17 (04/08/25 1245) BP: 117/82 (04/08/25 1331) SpO2: 95 % (04/08/25 1331) Pain rated at: 5. See Assessment and Doc Flowsheets for equipment and lines/drains. Dressing is clean, dry, intact. A: Monitor vital signs and assess patient per protocol. Patient oriented to bed controls and call lights. Discussed plan of care with patient. See Education Record. R: Patient settled to room. Will continue to monitor. documented in this encounter Procedure Notes * Chino Borges OA - 04/08/2025 11:29 AM CDT [facility] Brief Operative Progress Note Surgery Date: 04/08/2025 Surgeons and Role: * Brian Pan MD - Primary * Lizzy Crews PA-C - Assisting * DAPHNIE Boucher - Assisting Pre-op Diagnosis: * Closed fracture of head of left femur, initial encounter (C) [S72.052A] Post-op Diagnosis: Post-Op Diagnosis Codes: * Closed fracture of head of left femur, initial encounter ([facility]) [S72.052A] Procedures with associated lateralities: Procedure(s) (LRB): ANTERIOR TOTAL HIP JOINT REPLACEMENT (Left) EBL: 400 mL Specimens: * No specimens in log * Complications / Findings: None Allergies: Patient has no known allergies. Anesthesia: Spinal Tourniquet: None Disposition: Patient tolerated the procedure well and was transported to the PACU in stable condition. Thereafter to floor. Postoperative Plan: WB status: LLE -- Progress WBAT Antibiotics: 2g Ancef pre-op DVT Prophylaxis: ASA Drain(s)/Wound Vac: None X-rays: Intra-op Bracing/Splinting: None Elevation: PRN Skin Closure: [place] Dressings: Keep Mepilex dressing in place until follow-up Diet: Begin with fluids and progress MANUEL F/U: XRs on POD 1: AP Pelvis with left lateral hip Follow up in 3 weeks with [facility], Lizzy Crews PA-C, or Chino Borges, ATC, LAT, OTC. New XRs will be obtained at that time. I was asked by the surgeon to assist with this surgery. My duties for this procedure involved one or more of the following tasks: Positioning the patient, retracting soft tissue for operative exposure, suctioning fluids, assisting with fracture reduction/traction, assisting with hardware/prosthesisplacement and/or removal, assisting with dislocation/reduction of joint(s), assisting with repair of tendons/ligaments, suturing/closure of incision(s), dressing surgical wounds, casting/splinting, and/or documentation of the procedure/plan in the form of this brief op note. An bilingual administrative assistant was required during this procedure, allowing the surgeon to safely and efficiently operate. Signed by DAPHNIE Arteaga on 04/08/2025 at 11:29 AM * Brian Pan MD - 04/08/2025 11:26 AM CDT NAME: David Benito : 1950 AUTHENTICATING CLINICIAN: Brian Pan MD OPERATIVE REPORT DATE OF OPERATION: 04/08/25 SURGEON: Brian Pan MD PASTE UP COPY CAMERA OPERATOR: DAPHNIE Boucher, Lizzy Crews PA-C, was required for obstetric assistant for patient positioning, maintaining fracture reduction, retraction and incision closure. An bilingual administrative assistant was required during the critical portions ofthe procedure and there was no qualified resident available. The assistance she provided reduced operative time. PREOPERATIVE DIAGNOSIS: Left femoral head subchondral fracture POSTOPERATIVE DIAGNOSIS: Left femoral head subchondral fracture PROCEDURE PERFORMED: Left anterior total hip arthroplasty ANESTHESIA: General BLOOD LOSS: 400 mL COMPLICATIONS: None SPECIMENS: None INDICATIONS: David Benito is a 75 y.o. male with a limited past medical history, who presents with leftsubchondral fracture of his femoral head. Through shared decision-making, the patient and his family agreed to proceed with an anterior total hip replacement. Risks of surgery were discussed at length, including infection, repeat operation, fracture, dislocation, as well as incomplete pain relief. We also discussed at length the possibility an risk of medical complications. After all this, the patient and his family confirmed that they would like to proceed with surgery. The patient was consented and the site was marked. Implants: Cup - 56 Liner - neutral Stem - Z1 size 5 high offset Head - 36+3 ceramic DESCRIPTION OF PROCEDURE: The patient was brought to the operating room and placed on the traction table. The left hip was prepped and draped in sterile fashion. An approximately 10 cm incision was made centered over the overthe anterior aspect of the hip approximately 2 cm below and lateral to the ASIS. The skin was sharply incised with a knife. Electrocautery was used carefully and methodically throughout the entire operation. Subcutaneous fat was dissected carefully in an attempt to preserve the lateral femoral cutaneus nerve. The interval between the TFL and sartorious was identified and bluntly dissected. The crossing vasculature of the asceding branch of the lateral femoral circumflex artery and accompanying v enous structures were carefully coagulated. The rectus head was elevated off the capsule and T capsulotomy was made. Using the traction of the bed the hip was gently dislocated and a cut was made in the femoral neck. A corkscrew was utilized to remove the femoral head, which was measured on the back table. The entire acetabulum was cleaned and cleared of debris and the labrum resected. Sequential reaming was performed under direct fluoroscopy. Once adequate cup position was obtained, the final component was impacted with an accompanying liner. Attention was then turned to the the femoral shaft. Using an externally rotated and extended position, the femoral shaft was identified and the canal opened with a box maker, followed by a canal finder. The canal was subsequently broached. Final femoral implant was placed with a final head selection and the implant was impacted. The hip was reduced and imaged. Acceptable position, length and offset were documented using fluoroscopy. Dilute Betadine wash was allowed to sit for 3 minutes and then copiously irrigated. 0.5 gram of Vancomycin powder was added to the incision. Multi-modal local injection was carefully delivered to the soft tissues. The deep capsular layer and intramuscular planewas closed with #1 Ethibond in an interrupted fashion. The fascia between the TFL and sartorious was closed with 0 Vicryl and the the subcutaneous layer with 2-0 Vicryl. The skin was closed with contreras. Sterile dressings were applied and the patient was safely transported from the OR table to the hospital bed and transported to PACU for recovery. Dr. Pan was present for all critical portions of the procedure. POSTOPERATIVE PLAN: The patient will be weightbearing as tolerated, and PT 2-3 times per day. Postoperative x-rays on day 1 of the left hip and pelvis. DVT prophylaxis per medicine. Discharge plan is home tomorrow aftercleared by PT. Medical complications will be watched closely and will be discussed in a collaborative fashion with Medicine. Anticoagulation to begin/resume as early as tomorrow per Medicine. Brian Pan MD 04/08/2025, 11:27 AM documented in this encounter Consult Notes * Evelyn Rosado RN - 04/09/2025 10:28 AM CDTAssociated Order(s): CARE MANAGEMENT CONSULT - [facility] Care Management Inpatient Note Plan: Expected Discharge Date: 04/09/2025 Anticipated Discharge Plan: home Transportation: Anticipate Patient will arrange Barriers to Discharge: medical stability Prior Living Situation: Spouse, House Advanced Directive on File: On File Additional Comments: Received Hospital Care Management consult for discharge planning. Reviewed chart including therapy recommendations and attending provider???s progress note. Patient???s goal is to discharge home with no anticipated needs. Hospital Care Management will not assess/meet patient face to face because no discharge transition needs are required at this time. If further discharge needs arise, please place another Hospital Care Management consult. For urgent/same day needs, reach out to the assigned Hospital Care Management treatment water team leader to assess. Patient/Spokesperson Updated: Carine Rosado RN 10:28 AM 04/09/2025 * Jeanie Barboza APRN, CNP - 04/08/2025 7:31 PM CDT Brief Consult Note - Non-Billable Co-management of chronic medical conditions, DM2 focus 04/07 # DM2 Last Hgb A1c 6.5% 04/08/2025; estimated average blood glucose 140 mg/dL. No formal home regimen. - low-dose correction scale insulin ac/hs. - hypoglycemia protocol. # HTN - hold home HCTZ & lisinopril pending stable kidney function 04/09 AM. - BMP in AM. Formal note including other chronic medical conditions to follow 04/09/2025. We will continue to follow along. Jeanie Barboza APRN, CNP Department of Hospital Medicine [facility] documented in this encounter Plan of Treatment Upcoming Encounters Date Type Department Care Team (Late st Contact Info) Description 05/26/2025 10:20 AM CDT Appointment [facility] [address] [place], [place] [id number] Lizzy Crews, PAJulio [address] [place] [address] documented as of this encounter Goals Goal Patient Goal Type Associated Problems Recent Progress Patient-Stated? Author GENERAL OUTCOMES KNEE REPLACEMENT - RIGHT Care Plan ET PROE GENERAL OUTCOMES KNEE REPLACEMENT - RIGHT No Carlos Macdonald Right Knee Replacement Care Plan ET PROE RIGHT KNEE No Carlos Macdonald documented as of this encounter Procedures Procedure Name Priority Date/Time Associated Diagnosis Comments GLUCOSE, WHOLE BLOOD POCT Routine 04/09/2025 11:53 AM CDT CBC AND DIFFERENTIAL PANEL Routine 04/09/2025 10:21 AM CDT COMPLETE BLOOD COUNT-W/DIFF Routine 04/09/2025 10:21 AM CDT BASIC METABOLIC PANEL Routine 04/09/2025 10:21 AM CDT MAGNESIUM Routine 04/09/2025 10:21 AM CDT PHOSPHORUS Routine 04/09/2025 10:21 AM CDT XR PELVIS W LT LATERAL HIP Routine 04/09/2025 9:25 AM CDT GLUCOSE, WHOLE BLOOD POCT Routine 04/09/2025 7:25 AM CDT GLUCOSE, WHOLE BLOOD POCT Routine 04/08/2025 9:03 PM CDT GLUCOSE, WHOLE BLOOD POCT Routine 04/08/2025 4:56 PM CDT FL C ARM Routine 04/08/2025 11:07 AM CDT ANTERIOR TOTAL HIP JOINT REPLACEMENT 04/08/2025 8:53 AM CDT Closed fracture of head of left femur, initial encounter (HRC) ECG 12 LEAD INPATIENT Routine 04/08/2025 7:42 AM CDT BB DRAW AND HOLD STAT 04/08/2025 7:14 AM CDT HEMOGLOBIN, BLOOD STAT 04/08/2025 7:1 4 AM CDT HGB A1C STAT 04/08/2025 7:14 AM CDT POTASSIUM STAT 04/08/2025 7:14 AM CDT documented in this encounter Results * Glucose, Whole Blood POCT (04/09/2025 11:53 AM CDT) Glucose, Whole Blood 131 70 - 180 mg/dL 04/09/2025 11:55 AM CDT [facility] Performing Location [place] 04/09/2025 11:55 AM CDT [facility] Blood 04/09/2025 11:5 3 AM CDT 04/09/2025 11:55 AM CDT Brian Pan MD LAB_1 Final Resu lt [facility] [address] [employer] [address] * (ABNORMAL) Complete Blood Count-W/Diff (04/09/2025 10:21 AM CDT) WBC 10.2 3.5 - 10.5 x10(9)/L 04/09/2025 10:28 AM CDT [facility] RBC 4.22(L) 4.32 - 5.72 x10(12)/L 04/09/2025 10:28 AM CDT [facility] Hemoglobin 13.6 13.5 - 17.5 g/dL 04/09/2025 10:28 AM CDT [facility] HCT 39.4 38.8 - 50.0 % 04/09/2025 10:28 AM CDT [facility] MCV 93.4 80.0 - 100.0 fL 04/09/2025 10:28 AM CDT [facility] MCH 32.2 27.6 - 33.3 pg 04/09/2025 10:28 AM CDT [facility] MCHC 34.5 31.5 - 35.2 g/dL 04/09/2025 10:28 AM CDT [facility] RDW 13.3 11.9 - 15.5 % 04/09/2025 10:28 AM CDT [facility] Platelets 153 150 - 450 x10(9)/L 04/09/2025 10:28 AM CDT [facility] Automated NRBC 0 <=0 /100 WBC 04/09/2025 10:28 AM CDT [facility] Neutrophil Absolute 8.4(H) 1.7 - 7.0 10(9)/L 04/09/2025 10:28 AM CDT [facility] Lymphocyte Absolute 0.5(L) 1.0 - 4.8 10(9)/L 04/09/2025 10:28 AM CDT [facility] Monocyte Absolute 1.2(H) 0.2 - 0.9 10(9)/L 04/09/2025 10:28 AM CDT [facility] Eosinophil Absolute 0.0 0.0 - 0.5 10(9)/L 04/09/2025 10:28 AM CDT [facility] Basophil Absolute 0.0 0.0 - 0.3 10(9)/L 04/09/2025 10:28 AM CDT [facility] Immature Granulocyte % 0.3 0.0 - 0.5 % 04/09/2025 10:28 AM CDT [facility] Blood Venipuncture / Unknown 04/09/2025 10:21 AM CDT 04/09/2025 10:26 AM CDT Jeanie Barboza SURVEY AND MAPPING TECHNICIAN, SPECIAL EDUCATION PARAPROFESSIONAL LAB_1 Final Result Performing Organization Address City/[facility]/ZIP Co de Phone Number [facility] [employer] * Phosphorus (IN AM) (04/09/2025 10:21 AM CDT) [facility] Phosphorus 4.4 2.3 - 4.7 mg/dL 04/09/2025 11:01 AM CDT [facility] Blood Venipuncture / Unknown 04/09/2025 10:21 AM CDT 04/09/2025 10:26 AM CDT Jeanie Barboza SURVEY AND MAPPING TECHNICIAN, SPECIAL EDUCATION PARAPROFESSIONAL LAB_1 Final Result [facility] [address] * Magnesium (IN AM) (04/09/2025 10:21 AM CDT) Magnesium 1.6 1.6 - 2.6 mg/dL 04/09/2025 11:01 AM CDT [facility] Blood Venipuncture / Unknown 04/09/2025 10:21 AM CDT 04/09/2025 10:26 AM CDT us Jeanie Barboza SURVEY AND MAPPING TECHNICIAN, SPECIAL EDUCATION PARAPROFESSIONAL LAB_1 Final Result [facility] [address] * (ABNORMAL) Basic Metabolic Panel (IN AM) (04/09/2025 10:21 AM CDT) Pathologist [facility] Sodium 137 136 - 145 mmol/L 04/09/2025 11:01 AM CDT [facility] Potassium 4.7 3.5 - 5.1 mmol/L 04/09/2025 11:01 AM CDT [facility] Chloride 102 98 - 109 mmol/L 04/09/2025 11:01 AM CDT [facility] CO2 27 20 - 29 mmol/L 04/09/2025 11:01 AM CDT [facility] Anion Gap 8 6 - 16 mmol/L 04/09/2025 11:01 AM CDT [facility] Calcium 8.9 8.4 - 10.4 mg/dL 04/09/2025 11:01 AM CDT [facility] BUN 29(H) 7 - 26 mg/dL 04/09/2025 11:01 AM CDT [facility] Creatinine 0.86 0.73 - 1.18 mg/dL 04/09/2025 11:01 AM CDT [facility] Glucose 129(H) 70 - 100 mg/dL 04/09/2025 11:01 AM CDT [facility] Comment:The given reference range is for the fasting state. Non-fasting reference range for glucose is 70 - 180 mg/dL. GFR, Estimated >60 >60 mL/min/1.7 3m2 04/09/2025 11:01 AM CDT [facility] Blood Venipuncture / Unknown 04/09/2025 10:21 AM CDT 04/09/2025 10:26 AM CDT Jeanie Barboza APRN, SPECIAL EDUCATION PARAPROFESSIONAL LAB_1 Final Result [facility] [address] * XR Pelvis W Lt Lateral Hip (04/09/2025 9:25 AM CDT) Anatomical Region Laterality Modality Pelvis, Hip Digital Radiogra phy Narrative 04/09/2025 11:33 AM CDT EXAM: XR PELVIS W LT LATERAL HIP INDICATION: s/p DEEJAY COMPARISON: Pelvic MRI 03/11/2025, pelvic radiographs 03/05/2025 FINDINGS: There are new postoperative changes of left total hip arthroplasty with no evidence of immediate postoperative complication. Penile pump hardware noted. Signed by: Mike Blankenship 04/09/2025 11:33 AM Procedure Note Mike Blankenship MD - 04/09/2025 EXAM: XR PELVIS W LT LATERAL HIP INDICATION: s/p DEEJAY COMPARISON: Pelvic MRI 03/11/2025, pelvic radiographs 03/05/2025 FINDINGS: There are new postoperative changes of left total hip arthroplasty with noevidence of immediate postoperative complication. Penile pump hardwarenoted. Signed by: Mike Blankenship 04/09/2025 11:33 AM Lizzy Crews PA-C RAD GD Final Resu lt * Glucose, Whole Blood POCT (04/09/2025 7:25 AM CDT) Glucose, Whole Blood 176 70 - 180 mg/dL 04/09/2025 7:27 AM CDT [facility] Performing Location [place] 04/09/2025 7:27 AM CDT [facility] Blood 04/09/2025 7:25 AM CDT 04/09/2025 7:27 AM CDT Brian Pan MD LAB_1 Final Resu lt Performing Organization Address [facility] Phone Number [facility] [address] * (ABNORMAL) Glucose, Whole Blood POCT (04/08/2025 9:03 PM CDT) Glucose, Whole Blood 246(H) 70 - 180 mg/dL 04/08/2025 9:04 PM CDT [facility] Performing Location [place] 04/08/2025 9:04 PM CDT [facility] Blood 04/08/2025 9:03 PM CDT 04/08/2025 9:04 PM CDT Brian Pan MD LAB_1 Final Resu lt Performing Organization Address [facility] Phone [facility] [address] * (ABNORMAL) Glucose, Whole Blood POCT (04/08/2025 4:56 PM CDT) Glucose, Whole Blood 280(H) 70 - 180 mg/dL 04/08/2025 4:58 PM CDT [facility] Performing Location [place] 04/08/2025 4:58 PM CDT [facility] Blood 04/08/2025 4:56 PM CDT 04/08/2025 4:58 PM CDT Brian Pan MD LAB_1 Final Resu lt Performing Organization Address [facility] Phone Number [facility] [address] * FL C Arm (04/08/2025 11:07 AM CDT) Anatomical Region Laterality Modality Radiographic Nadia ging Narrative 04/08/2025 11:08 AM CDT These images were obtained during a surgical procedure. Brian Pan MD RAD FL Final Resu lt * ECG 12 Lead Inpatient (04/08/2025 7:42 AM CDT) Ventricular Rate 57 BPM MUSE G[facility] Atrial Rate 57 BPM MUSE [facility] P-R Interval 192 ms MUSE [facility]HP QRS Duration 160 ms MUSE GHP QT 450 ms MUSE GHP QTC 438 ms MUSE GHP P [place] 47 degrees MUSE GHP R [place] -49 degrees MUSE GHP T [place] 13 degrees MUSE GHP 04/08/2025 7:42 AM CDT Narrative MUSE [facility] - 04/08/2025 8:44 AM CDT Sinus bradycardia Right bundle branch block Left anterior fascicular block Bifascicular block Minimal voltage criteria for LVH, may be normal variant Abnormal ECG No previous ECGs available Confirmed by Camacho Penaloza ([id number]) on 04/08/2025 8:44:20 AM Procedure Note Camacho Penaloza MD - 04/08/2025 Sinus bradycardia Right bundle branch block Left anterior fascicular block Bifascicular block Minimal voltage criteria for LVH, may be normal variant Abnormal ECG No previous ECGs available Confirmed by Camacho Penaloza ([id number]) on 04/08/2025 8:44:20 AM us Brian Pan MD PN ECG ORDERABLES Final Re sult [facility] [address] [place] [address] * (ABNORMAL) Hgb A1C (04/08/2025 7:14 AM CDT) Pathologist [facility] Hemoglobin A1C 6.5(H) <=5.6 % 04/08/2025 12:[address] [facility] Estimated Average Glucose (Calc) 140 < 117 mg/dL 04/08/2025 12:16 PM [facility] Comment:Estimated average gl ucose (eAG) converts A1c into glucose units (mg/dL) and estimates average glucose over the past approximately 3 months. The eAG reference interval (<117 mg/dL) corresponds to an A1c of <5.7%. Blood Venipuncture / Unknown 04/08/2025 7:14 AM CDT 04/08/2025 7:24 AM CDT Narrative [facility] - 04/08/2025 12:16 PM CDT For patients not previously diagnosed with diabetes: 5.7-6.4%: Increased risk for diabetes 6.5% and greater: Diagnostic for diabetes For patients diagnosed with diabetes: <8.0%: Goal of therapy for ages 18-75 Clinicians may recommend a higher or lower goal for specific individuals. Brian Pan MD LAB_1 Final Resu lt [facility] [address] * Hemoglobin for all patients that have a Draw and Hold, Type and Screen, or Type and Cross ordered (04/08/2025 7:14 AM CDT) Hemoglobin 16.0 13.5 - 17.5 g/dL 04/08/2025 7:28 AM CDT [facility] Blood Venipuncture / Unknown 04/08/2025 7:14 AM CDT 04/08/2025 7:24 AM CDT Brian Pan MD LAB_1 Final Resu lt Performing Organization Address [facility] Co de Phone Number [facility] [address] * Draw & Hold - Inpatient Only (04/08/2025 7:14 AM CDT) BB DRAW AND HOLD Received in BB 04/08/2025 7:37 AM CDT [facility] Blood Venipuncture / Unknown 04/08/2025 7:14 AM CDT 04/08/2025 7:24 AM CDT Brian Pan MD LAB_1 Final Resu lt Performing Organization Address City/[facility]/ZIP Co de Phone Number [facility] [address] * POTASSIUM (04/08/2025 7:14 AM CDT) Potassium 4.2 3.5 - 5.1 mmol/L 04/08/2025 7:44 AM CDT [facility] Blood Venipuncture / Unknown 04/08/2025 7:14 AM CDT 04/08/2025 7:24 AM CDT us Brian Pan MD LAB_1 Final Resu lt [facility] [address] [place] [address], [facility] documented in this encounter Visit Diagnoses Diagnosis Status post total replacement of left hip- Primary Pain Generalized pain Closed fracture of head of left femur (HRC) Other closed transcervical fracture of femur Essential hypertension (HRC) Unspecified essential hypertension IFG (impaired fasting glucose) Impaired fasting glucose Dysthymia (HRC) Dysthymic disorder * Plan of Care - Jacquelyn Solorzano RN - 04/09/2025 6:03 AM CDT Nursing update: A/O x 4. Ambulating with SBA, walker and gait belt. Voiding without difficulty. Tolerating diet. Drsg with scant drainage present otherwise intact. Neuro's intact. Pain managed with scheduled meds, prn dilaudid and ice packs. Using incentive spirometer as directed and demonstrates proper technique. Patient will continue to progress towards adequate pain control, increased mobility and discharge to home. Questions encouraged and answered. Call light within reach. Will report off to oncoming RN and continue to monitor in the meantime. * Plan of Care - Juanpablo Jordan, PharmD - 04/08/2025 1:39 PM CDT [facility] Medication History Note 1. Source(s) of Medication Information: Patient, SureScrichristina/Dr. Lizarraga 2. Pertinent Information: Recent prior to admission medication changes: Medications added: none Medications deleted: none Medications changed: 1- atorvastatin dose changed from 20 to 40 mg daily This medication history was completed by using prescription dispense data. [id number] products not assessed and left on current medication list as taking. All last dose times added prior to pharmacy review by other reviewing healthcare provider. 3. Outpatient Medications Marked as Taking: Outpatient Medications Marked as Taking for the 04/08/25 encounter (Hospital Encounter) Medication Sig Last Dose/Taking amLODIPine (NORVASC) 5 MG tablet Take 1 Tablet (5 mg) by mouth daily. Per patient report Indications: High Blood Pressure Do not start before April 09, 2025. 04/08/2025 Morning atorvastatin (LIPITOR) 40 MG tablet Take 1 Tablet (40 mg) by mouth daily. 04/07/2025 lisinopril-hydroCHLOROthiazide (PRINZIDE) 20-12.5 MG tablet Take 1 Tablet by mouth daily. 04/08/2025 Morning Meloxicam (MOBIC) 15 MG tablet Take 1 Tablet (15 mg) by mouth daily. Past Week multivitamin (THERAGRAN) tablet Take 1 Tablet by mouth daily. Past Week Thank you. This list represents the best possible medication history available at the time of note completion and should be used as a guide in reconciling home medications for hospital use. ? documented in this encounter Admitting Diagnoses Diagnosis Closed fracture of head of left femur (HRC) Other closed transcervical fracture of femur documented in this encounter Administered Medications Inactive Administered Medications - up to 3 most recent administrations Medication Order MAR Action Action Date Dose Rate Site acetaminophen (TYLENOL) tablet 1,000 mg 1,000 mg, Oral, ONCE, On Alejandra 04/08/25 at 0715, For 1 dose, Give in Preop., Pre-op Given 04/08/2025 8:05 AM CDT 1,000 mg acetaminophen (TYLENOL) tablet 650 mg 650 mg, Oral, Q6H, First dose on Sat04/08/25 at 1400, Until Discontinued, Post-op Given 04/09/2025 7:38 AM CDT 650 mg Given 04/09/2025 1:46 AM CDT 650 mg Given 04/08/2025 2:07 PM CDT 650 mg aspirin EC enteric coated tablet 162 mg 162 mg, Oral, DAILY, First dose on Sat04/08/25 at 2000, Until Discontinued, Begin day of surgery., Post-op Given 04/09/2025 7:37 AM CDT 162 mg Given 04/08/2025 7:59 PM CDT 162 mg atorvastatin (LIPITOR) tablet 40 mg 40 mg, Oral, DAILY, First dose on Sat04/09/25 at 0800, Until Discontinued Given 04/09/2025 7:38 AM CDT 40 mg ceFAZolin (ANCEF) 2 g in sterile water for injection 20 mL premade IV syringe 2 g, Intravenous, Administer over 5 Minutes, Q8H (NON-STND), First dose on Sat04/08/25 at 1800, For 2 doses, Administer IV push over 5 minutes., Post-opIndications:Surgical Prophylaxis Given 04/09/2025 1:46 AM CDT 2 g 240 mL/hr Given 04/08/2025 6:26 PM CDT 2 g 240 mL/hr dextrose 50% (D50) injection 25 g 25 g, Intravenous, Q15MIN PRN, Hypoglycemia, Per Hypoglycemia Treatment Protocol for age greater than 10 (adult and peds) AND weight 25 kg or greater, Starting on Sat04/08/25 at 1934, Per Hypoglycemic episode: Give 25g IV push, recheck POCT glucose in 15 minutes, if result less than 70 mg/dL, repeat treatment for hypoglycemia. After 2 doses notify Practitioner. May continue to treat while waiting for call back. diphenhydrAMINE (BENADRYL) injection 12.5-25 mg 12.5-25 mg, Intravenous, Q6H PRN, Itching, Starting on Sat04/08/25 at 1300, Until Sat04/09/25 at 1612, Give IV only if unable to take ORALLY., Post-op diphenhydrAMINE (BENADRYL) oral liquid 12.5-25 mg 12.5-25 mg, Oral, Q6H PRN, Itching, Starting on Sat04/08/25 at 1300, Until Sat04/09/25 at 1612, If able to take ORAL medications., Post-op fentaNYL (SUBLIMAZE) injection 25 mcg 25 mcg, Intravenous, [id number], Pain, the immediate postop period when longer acting agent is desired, Starting on Sat04/08/25 at 0718, Until Sat04/08/25 at 1259, Use fentanyl as first line short acting agent for treatment of acute post operative pain. May use for breakthrough pain in conjunction with a longer acting agent (hydromorphone or morphine). Max cumulative dose: 250 mcg. Call anesthesia if additional or greater doses needed. For patients with a regional, spinal, or local anesthetic, may give for anticipated pain as the anesthetic wears off. Respiratory rate must be greater than 10 to administer medications., PACU/Recovery Given 04/08/2025 12:3 6 PM CDT 25 mcg Given 04/08/2025 12:31 PM CDT 25 mcg glucagon rDNA (diagnostic) (GLUCAGEN) injection 1 mg 1 mg, Intramuscular, Q15MIN PRN, Hypoglycemia, Per Hypoglycemia Treatment Protocol for age greater than 10 (adult and peds) AND weight 25 kg or greater, Starting on Sat04/08/25 at 1934, Until Sat04/09/25 at 1612, Per Hypoglycemic episode: Prior to administration, reconstitute glucagon vial with 1 mL of provided diluent or 1 mL of Sterile Water for Injection to make a 1 mg/1 mL solution. Give 1 mg IM, turn patient on side to prevent aspiration if vomits. If appropriate, establish IV access STAT. Recheck POCT glucose in 15 minutes, if result less than 70 mg/dL and still no IV access, may repeat 1 mg IM x 1. Recheck POCT glucose in 15 minutes, if result is less than 70 mg/dL notify Practitioner. glucose (GLUTOSE) 40 % oral gel 15 g of glucose 15 g of glucose, Oral, Q15MIN PRN, Hypoglycemia, Per Hypoglycemia Treatment Protocol for age greater than 10 (adult and peds) AND weight 25 kg or greater, Starting on Sat04/08/25 at 1934, Until Sat04/09/25 at 1612, Per Hypoglycemia Episode: Give 15g orally, recheck POCT glucose in 15 minutes, if result less than 70 mg/dL, repeat treatment for hypoglycemia. After 2 doses notify Practitioner. May continue to treat while waiting for call back. 37.5g tube delivers 15g of glucose HYDROmorphone (DILAUDID) injection 0.25 mg 0.25 mg, Intravenous, Q10MIN PRN, Pain, The immediate postop period when longer acting agent is desired, Starting on Alejandra 04/08/25 at 0718, Until Sat04/08/25 at 1259, Use hydromorphone if fentanyl is not adequately managing pain. May use fentanyl for breakthrough pain in conjunction with hydromorphone dosing. Maximum cumulative dose is 4 mg in PACU, call anesthesia if additional or greater doses needed. For patients with a regional, spinal, or local anesthetic, may give for anticipated pain as the anesthetic wears off., PACU/Recovery Given 04/08/2025 12:41 PM CDT 0.25 mg HYDROmorphone (DILAUDID) tablet 2-4 mg 2-4 mg, Oral, Q2H PRN, Other, Moderate Pain (pain score 5-7), Severe Pain (pain score 8-10), Starting on Sat04/08/25 at 1140, Until Sat04/09/25 at 1612, Do NOT administer at the same time as IV opioids. May administer 1 hour after IV opioid administration. Do not give if on WAXER. Use of ORAL opioids is encouraged as patients anticipate discharge. (IV medications will be discontinued 48 hours post-op.) Post-op May give for anticipatory pain (i.e. prior to therapies, procedures) regardless of current pain score, Post-op Given 04/09/2025 1:31 PM CDT 4 mg Given 04/09/2025 7:38 AM CDT 4 mg Given 04/09/2025 1:50 AM CDT 4 mg insulin lispro (HUMALOG; ADMELOG) injection vial 1-4 Units 1-4 Units, Subcutaneous, HS, First dose on Sat04/08/25 at 2200, Correction Scale Insulin: Blood Sugar 201-250 give 1 units Blood Sugar 251-300 give 2 units Blood Sugar 301-350 give 3 units Blood Sugar greater than 350 give 4 units If Blood Sugar still greater than 350 after next POCT Glucose, notify Practitioner Given 04/08/2025 9:34 PM CDT 2 Units Left Arm insulin lispro (HUMALOG; ADMELOG) injection vial 1-5 Units 1-5 Units, Subcutaneous, TID WITH MEALS, First dose on Sat04/08/25 at 2000, Correction Scale Insulin: Can be given with carb based insulin OR if patient is not eating or NPO, give within 15 minutes of POCT glucose. Blood Sugar 150 - 200 give 1 units Blood Sugar 201-250 give 2 units Blood Sugar 251-300 give 3 units Blood Sugar 301-350 give 4 units Blood Sugar greater than 350 give 5 units If Blood Sugar still greater than 350 after next POCT Glucose, notify Practitioner Given 04/09/2025 7:43 AM CDT 1 Units Right Arm lactated ringers infusion 25 mL/hr, Intravenous, CONTINUOUS, Starting on Alejandra 04/08/25 at 0715, Administer on all preop surgery patients, ages 12 and older, unless specified differently in the Protocol for Preop Initiation of IV fluids Order Set., Pre-op Started 04/08/2025 8:05 AM CDT 25 mL/hr 25 mL/hr lidocaine PF (XYLOCAINE) 1 % injection 0.1-0.3 mL 0.1-0.3 mL, Intradermal, ONCE, On Alejandra 04/08/25 at 0715, For 1 dose, Lidocaine to be used for IV starts unless patient refuses., Pre-op Given 04/08/2025 7:55 AM CDT 0.1 mL magnesium hydroxide (MILK OF MAGNESIA) suspension 30 mL 30 mL, Oral, DAILY (NS), First dose on Sat04/09/25 at 0800, Until Discontinued, DO NOT GIVE if loose stools., Post-op Given 04/09/2025 7:40 AM CDT 30 mL metoclopramide (REGLAN) injection 5 mg 5 mg, Intravenous, Q6H PRN, Nausea, Vomiting, Starting on Alejandra 04/08/25 at 1300, Until Sat04/09/25 at 1612, Give 1st line medications, then 2nd line, then 3rd line. Progress to next line if medication is ineffective after 15 minutes, or has been previously ineffective, or if a medication for a line is not ordered. May use medication from any line if patient preference indicates. If 3rd line agent is ineffective, call Practitioner. If unable to give IV medications contact Practitioner. Aromatherapy may be used at any time as adjunct therapy. 1st Line - ondansetron (give ondansetron ODT (oral) if able to take oral, otherwise give IV) 2nd Line -prochlorperazine 3rd Line - metoclopramide naloxone (NARCAN) injection 0.04 mg 0.04 mg, Intravenous, Q2MIN PRN, Opioid Reversal, Non-Emergent Opioid Reversal (Respiratory Rate less than 8 breaths per minute or difficult to arouse), Starting on Sat04/08/25 at 1300, Until Sat04/09/25 at 1612, Dilution Instructions: Dilute 1 mL of 0.4 mg/mL naloxone vial into 9 mL of normal saline to make a final concentration of 0.04 mg/mL. Discard dose if not used within 1 hour. Use 1 mL of diluted 0.04 mg/mL strength slow IV push over 1 minute. Give first dose, notify practitioner, and continue to observe. Repeat for up to 5 doses per episode until patient is arousable and can take deep breaths. If no improvement in respiratory rate or remains difficult to arouse notify practitioner for additional orders. naloxone (NARCAN) injection 0.4 mg 0.4 mg, Intravenous, Q2MIN PRN, Opioid Reversal, Emergent Opioid Reversal (Respiratory Rate less than 6 breaths per minute or unresponsive to physical stimulation), Starting on Sat04/08/25 at 1300, Until Sat04/09/25 at 1612, Give first dose, notify practitioner, and continue to observe. Repeat for up to 5 doses per episode until patient is responsive to physical stimulation and can take deep breaths. ondansetron (ZOFRAN) injection 4 mg 4 mg, Intravenous, Q6H PRN, Nausea, Vomiting, Other, If unable to take ODT ondansetron, Starting on Sat04/08/25 at 1300, Until Sat04/09/25 at 1612, Give 1st line medications, then 2nd line, then 3rd line. Progress to next line if medication is ineffective after 15 minutes, or has been previously ineffective, or if a medication for a line is not ordered. May use medication from any line if patient preference indicates. If 3rd line agent is ineffective, call Practitioner. If unable to give IV medications contact Practitioner. Aromatherapy may be used at any time as adjunct therapy. 1st line: ondansetron (give ondansetron ODT (oral) if able to take oral, otherwise give IV) 2nd line: prochlorperazine 3rd line: metoclopramide ondansetron (ZOFRAN-ODT) disintegrating tablet 4 mg 4 mg, Oral, Q6H PRN, Vomiting, Nausea, Starting on Sat04/08/25 at 1300, Until Sat04/09/25 at 1612, Give 1st line medications, then 2nd line, then 3rd line. Progress to next line if medication is ineffective after 15 minutes, or has been previously ineffective, or if a medication for a line is not ordered. May use medication from any line if patient preference indicates. If 3rd line agent is ineffective, call Practitioner. If unable to give IV medications contact Practitioner. Aromatherapy may be used at any time as adjunct therapy. 1st line: ondansetron (give ondansetron ODT (oral) if able to take oral, otherwise give IV) 2nd line: prochlorperazine 3rd line: metoclopramide prochlorperazine (COMPAZINE) injection 5 mg 5 mg, Intravenous, Q6H PRN, Nausea, Vomiting, Starting on Alejandra 04/08/25 at 1300, Until Sat04/09/25 at 1612, Give 1st line medications, then 2nd line, then 3rd line. Progress to next line if medication is ineffective after 15 minutes, or has been previously ineffective, or if a medication for a line is not ordered. May use medication from any line if patient preference indicates. If 3rd line agent is ineffective, call Practitioner. If unable to give IV medications contact Practitioner. Aromatherapy may be used at any time as adjunct therapy. 1st Line - ondansetron (give ondansetron ODT (oral) if able to take oral, otherwise give IV) 2nd Line -prochlorperazine 3rd Line - metoclopramide senna (SENOKOT) tablet 1 Tablet 1 Tablet, Oral, DAILY, First dose on Alejandra 04/08/25 at 2000, Until Discontinued, Give every day while on opioids (stimulant) starting day of surgery. DO NOT GIVE if loose stools., Post-op Given 04/09/2025 7:37 AM CDT 1 Tablet Given 04/08/2025 7:59 PM CDT 1 Tablet documented in this encounter Active and Recently Administered Medications Times are shown in CDT. Scheduled Medication Order 04/07/2025 04/08/2025 04/09/2025 acetaminophen (TYLENOL) tablet 1,000 mg (COMPLETED) 1,000 mg, Oral, ONCE, On Alejandra 04/08/25 at 0715, For 1 dose, Give in Preop., Pre-op 08 (Given - Provider: Hilaria Martini RN) acetaminophen (TYLENOL) tablet 650 mg 650 mg, Oral, Q6H, First dose on Sat04/08/25 at 1400, Until Discontinued, Post-op 1407 (Given - Provider: Evelyn Murray RN) 0146 (Given - Provider: Jacquelyn Solorzano, RN)0738 (Given - Provider: Melonie Sotelo, CARO)1226 (Not Given - Provider: Kiesha Periera RN - Reason: Patient/family refused) aspirin EC enteric coated tablet 162 mg 162 mg, Oral, DAILY, First dose on Sat04/08/25 at 2000, Until Discontinued, Begin day of surgery., Post-op 195 (Given - Provider: Natalia Naranjo, CARO) 0737 (Given - Provider: Melonie Sotelo, CARO) atorvastatin (LIPITOR) tablet 40 mg 40 mg, Oral, DAILY, First dose on Sat04/09/25 at 0800, Until Discontinued 0738 (Given - Provid er: Melonie Sotelo RN) ceFAZolin (ANCEF) 2 g in sterile water for injection 20 mL premade IV syringe (COMPLETED) 2 g, Intravenous, Administer over 5 Minutes, ONCE, On Sat04/08/25 at 0715, For 1 dose, Infuse within 60 minutes prior to incision; Re-dose 1 gram IV every 4 hours after initial dose until incision closed. Administer IV push over 5 minutes., Pre-op 0950 (Given - Provider: Wanda Kidd APRN, [employer] DIRECTOR) ceFAZolin (ANCEF) 2 g in sterile water for injection 20 mL premade IV syringe (COMPLETED) 2 g, Intravenous, Administer over 5 Minutes, Q8H (NON-STND), First dose on Sat04/08/25 at 1800, For 2 doses, Administer IV push over 5 minutes., Post-op 1826 (Given - Provider: Althea Pierce, CARO) 0146 (Given - Provider: Jacquelyn Solorzano, CARO) hydroCHLOROthiazide (ORETIC) tablet 12.5 mg 12.5 mg, Oral, DAILY, First dose on Sat04/09/25 at 0800, Until Discontinued, Hold for SBP < 120, On hold since Sat04/08/2025 at 1933 until manually unheld 1932 (Held by provider in Manage Orders - Provider: Jeanie Barboza APRN, CNP - Reason: Per Practitioner - Other (Enter reason in comments)) 0800 (Automatically Held - Provider: Jeanie Barboza APRN, SORIN)1612 (Unheld by provider in Manage Orders - Provider: Md Amee Boylewv) insulin lispro (HUMALOG; ADMELOG) injection vial 1-4 Units(Linked Group 1) 1-4 Units, Subcutaneous, HS, First dose on Sat04/08/25 at 2200, Correction Scale Insulin: Blood Sugar 201-250 give 1 units Blood Sugar 251-300 give 2 units Blood Sugar 301-350 give 3 units Blood Sugar greater than 350 give 4 units If Blood Sugar still greater than 350 after next POCT Glucose, notify Practitioner 2133 (Given - Provider: Natalia Naranjo, CARO) insulin lispro (HUMALOG; ADMELOG) injection vial 1-5 Units(Linked Group 1) 1-5 Units, Subcutaneous, TID WITH MEALS, First dose on Sat04/08/25 at 2000, Correction Scale Insulin: Can be given with carb based insulin OR if patient is not eating or NPO, give within 15 minutes of POCT glucose. Blood Sugar 150 - 200 give 1 units Blood Sugar 201-250 give 2 units Blood Sugar 251-300 give 3 units Blood Sugar 301-350 give 4 units Blood Sugar greater than 350 give 5 units If Blood Sugar still greater than 350 after next POCT Glucose, notify Practitioner 2131 (Not Given - Provider: Natalia Naranjo RN - Reason: Order parameters not met) 0743 (Given - Provider: Melonie Sotelo, CARO)1227 (Not Given - Provider: Kiesha Pereira RN - Reason: Order parameters not met - Comment: BG 131) lidocaine PF (XYLOCAINE) 1 % injection 0.1-0.3 mL (COMPLETED)(Linked Group 2) 0.1-0.3 mL, Intradermal, ONCE, On Sat04/08/25 at 0715, For 1 dose, Lidocaine to be used for IV starts unless patient refuses., Pre-op 0755 (Given - Provider: Hilaria Martini, CARO) lisinopril (ZESTRIL) tablet 20 mg 20 mg, Oral, DAILY, First dose on Sat04/09/25 at 0800, Until Discontinued, Hold for SBP < 120, On hold since Alejandra 04/08/2025 at 1933 until manually unheld 1932 (Held by provider in Manage Orders - Provider: Jeanie Barboza APRN, CNP - Reason: Per Practitioner - Other (Enter reason in comments)) 0800 (Automatically Held - Provider: Jeanie Barboza APRN, SORIN)1612 (Unheld by provider in Manage Orders - Provider: Inpatient Template Tamarwv) magnesium hydroxide (MILK OF MAGNESIA) suspension 30 mL 30 mL, Oral, DAILY (NS), First dose on Sat04/09/25 at 0800, Until Discontinued, DO NOT GIVE if loose stools., Post-op 0740 (Given - Provid er: Melonie Sotelo RN) senna (SENOKOT) tablet 1 Tablet 1 Tablet, Oral, DAILY, First dose on Sat04/08/25 at 2000, Until Discontinued, Give every day while on opioids (stimulant) starting day of surgery. DO NOT GIVE if loose stools., Post-op 1958 (Given - Provider: Natalia Naranjo RN) 07 (Given - Provider: Melonie Sotelo RN) Continuous Medication Order 04/07/2025 04/08/2025 04/09/2025 lactated ringers infusion (CANCELED) 25 mL/hr, Intravenous, CONTINUOUS, Starting on Alejandra 04/08/25 at 0715, Administer on all preop surgery patients, ages 12 and older, unless specified differently in the Protocol for Preop Initiation of IV fluids Order Set., Pre-op 0805 (Started - Provider: Kacey Martini RN)1339 (Infused - Provider: Evelyn Murray RN - Comment: [Order ends at this time. Document the following action when infusion is complete: Infused]) PRN Medication Order 04/07/2025 04/08/2025 04/09/2025 bisacodyl (DULCOLAX) rectal suppository 10 mg 10 mg, Rectal, DAILY PRN, Other, Moderate Constipation, Starting on Alejandra 04/08/25 at 1300, Until Sat04/09/25 at 1612, Give 2nd for moderate constipation if no results with polyethylene glycol., Post-op dextrose 50% (D50) injection 25 g(Linked Group 3) 25 g, Intravenous, Q15MIN PRN, Hypoglycemia, Per Hypoglycemia Treatment Protocol for age greater than 10 (adult and peds) AND weight 25 kg or greater, Starting on Sat04/08/25 at 1934, Per Hypoglycemic episode: Give 25g IV push, recheck POCT glucose in 15 minutes, if result less than 70 mg/dL, repeat treatment for hypoglycemia. After 2 doses notify Practitioner. May continue to treat while waiting for call back. diphenhydrAMINE (BENADRYL) injection 12.5-25 mg(Linked Group 4) 12.5-25 mg, Intravenous, Q6H PRN, Itching, Starting on Sat04/08/25 at 1300, Until Sat04/09/25 at 1612, Give IV only if unable to take ORALLY., Post-op diphenhydrAMINE (BENADRYL) oral liquid 12.5-25 mg(Linked Group 4) 12.5-25 mg, Oral, Q6H PRN, Itching, Starting on Sat04/08/25 at 1300, Until Sat04/09/25 at 1612, If able to take ORAL medications., Post-op fentaNYL (SUBLIMAZE) injection 25 mcg (CANCELED) 25 mcg, Intravenous, [id number], Pain, the immediate postop period when longer acting agent is desired, Starting on Sat04/08/25 at 0718, Until Sat04/08/25 at 1259, Use fentanyl as first line short acting agent for treatment of acute post operative pain. May use for breakthrough pain in conjunction with a longer acting agent (hydromorphone or morphine). Max cumulative dose: 250 mcg. Call anesthesia if additional or greater doses needed. For patients with a regional, spinal, or local anesthetic, may give for anticipated pain as the anesthetic wears off. Respiratory rate must be greater than 10 to administer medications., PACU/Recovery 1231 (Given - Provider: Ericka Mason RN)1236 (Given - Provider: Ericka Mason RN) glucagon rDNA (diagnostic) (GLUCAGEN) injection 1 mg(Linked Group 3) 1 mg, Intramuscular, Q15MIN PRN, Hypoglycemia, Per Hypoglycemia Treatment Protocol for age greater than 10 (adult and peds) AND weight 25 kg or greater, Starting on Sat04/08/25 at 1934, Until Sat04/09/25 at 1612, Per Hypoglycemic episode: Prior to administration, reconstitute glucagon vial with 1 mL of provided diluent or 1 mL of Sterile Water for Injection to make a 1 mg/1 mL solution. Give 1 mg IM, turn patient on side to prevent aspiration if vomits. If appropriate, establish IV access STAT. Recheck POCT glucose in 15 minutes, if result less than 70 mg/dL and still no IV access, may repeat 1 mg IM x 1. Recheck POCT glucose in 15 minutes, if result is less than 70 mg/dL notify Practitioner. glucose (GLUTOSE) 40 % oral gel 15 g of glucose(Linked Group 3) 15 g of glucose, Oral, Q15MIN PRN, Hypoglycemia, Per Hypoglycemia Treatment Protocol for age greater than 10 (adult and peds) AND weight 25 kg or greater, Starting on Sat04/08/25 at 1934, Until Sat04/09/25 at 1612, Per Hypoglycemia Episode: Give 15g orally, recheck POCT glucose in 15 minutes, if result less than 70 mg/dL, repeat treatment for hypoglycemia. After 2 doses notify Practitioner. May continue to treat while waiting for call back. 37.5g tube delivers 15g of glucose HYDROmorphone (DILAUDID) injection 0.25 mg (CANCELED) 0.25 mg, Intravenous, Q10MIN PRN, Pain, The immediate postop period when longer acting agent is desired, Starting on Sat04/08/25 at 0718, Until Sat04/08/25 at 1259, Use hydromorphone if fentanyl is not adequately managing pain. May use fentanyl for breakthrough pain in conjunction with hydromorphone dosing. Maximum cumulative dose is 4 mg in PACU, call anesthesia if additional or greater doses needed. For patients with a regional, spinal, or local anesthetic, may give for anticipated pain as the anesthetic wears off., PACU/Recovery 1241 (Given - Provider: Ericka Mason RN) HYDROmorphone (DILAUDID) injection 0.3-0.5 mg 0.3-0.5 mg, Intravenous, Q1H PRN, Other, Severe Pain (pain score 8-10) if patient is unable to take ORAL or for pain score increasing by 3 in 30 minutes., Starting on Sat04/08/25 at 1300, Until Sat04/09/25 at 1612, For 48 hours, May administer 1 hour after ORAL opioid administration if given for pain score escalation. Do NOT administer at the same time as ORAL opioids. Do not give if on WAXER., Post-op HYDROmorphone (DILAUDID) tablet 2-4 mg 2-4 mg, Oral, Q2H PRN, Other, Moderate Pain (pain score 5-7), Severe Pain (pain score 8-10), Starting on Alejandra 04/08/25 at 1140, Until Sat04/09/25 at 1612, Do NOT administer at the same time as IV opioids. May administer 1 hour after IV opioid administration. Do not give if on WAXER. Use of ORAL opioids is encouraged as patients anticipate discharge. (IV medications will be discontinued 48 hours post-op.) Post-op May give for anticipatory pain (i.e. prior to therapies, procedures) regardless of current pain score, Post-op 1157 (Given - Provider: Ericka Mason, RN)1408 (Given - Provider: Evelyn Murray RN)1959 (Given - Provider: Natalia Naranjo RN) 0150 (Given - Provider: Jacquelyn Solorzano, CARO - Comment: anticipatory, getting up to bathroom)0738 (Given - Provider: Melonie Sotelo RN)1331 (Given - Provider: Ilana Garcia RN) lidocaine (UROJET) 2 % gel prefilled syringe Urethral, PRN WITH PROCEDURES, Local Anesthetic, Prior to intermittent straight cath or indwelling urethral catheter placement for pain relief and/or lubrication, Starting on Alejandra 04/08/25 at 1300, Administer 3-5 mL for females and 5-10mL for males as needed for anesthetic effect prior to procedure Strongly recommend utilizing Coud tipped catheter and PRN Urojet for patients with a prostate age 50 and older. , Post-op melatonin tablet 3 mg 3 mg, Oral, HS PRN, Other, For mild insomnia, Starting on Alejandra 04/08/25 at 1300, Until Sat04/09/25 at 1612, Use if melatonin is ineffective. May repeat in 1 hour if ineffective. metoclopramide (REGLAN) injection 5 mg(Linked Group 5) 5 mg, Intravenous, Q6H PRN, Nausea, Vomiting, Starting on Sat04/08/25 at 1300, Until Sat04/09/25 at 1612, Give 1st line medications, then 2nd line, then 3rd line. Progress to next line if medication is ineffective after 15 minutes, or has been previously ineffective, or if a medication for a line is not ordered. May use medication from any line if patient preference indicates. If 3rd line agent is ineffective, call Practitioner. If unable to give IV medications contact Practitioner. Aromatherapy may be used at any time as adjunct therapy. 1st Line - ondansetron (give ondansetron ODT (oral) if able to take oral, otherwise give IV) 2nd Line -prochlorperazine 3rd Line - metoclopramide naloxone (NARCAN) injection 0.04 mg(Linked Group 6) 0.04 mg, Intravenous, Q2MIN PRN, Opioid Reversal, Non-Emergent Opioid Reversal (Respiratory Rate less than 8 breaths per minute or difficult to arouse), Starting on Sat04/08/25 at 1300, Until Sat04/09/25 at 1612, Dilution Instructions: Dilute 1 mL of 0.4 mg/mL naloxone vial into 9 mL of normal saline to make a final concentration of 0.04 mg/mL. Discard dose if not used within 1 hour. Use 1 mL of diluted 0.04 mg/mL strength slow IV push over 1 minute. Give first dose, notify practitioner, and continue to observe. Repeat for up to 5 doses per episode until patient is arousable and can take deep breaths. If no improvement in respiratory rate or remains difficult to arouse notify practitioner for additional orders. naloxone (NARCAN) injection 0.4 mg(Linked Group 6) 0.4 mg, Intravenous, Q2MIN PRN, Opioid Reversal, Emergent Opioid Reversal (Respiratory Rate less than 6 breaths per minute or unresponsive to physical stimulation), Starting on Sat04/08/25 at 1300, Until Sat04/09/25 at 1612, Give first dose, notify practitioner, and continue to observe. Repeat for up to 5 doses per episode until patient is responsive to physical stimulation and can take deep breaths. ondansetron (ZOFRAN) injection 4 mg(Linked Group 5) 4 mg, Intravenous, Q6H PRN, Nausea, Vomiting, Other, If unable to take ODT ondansetron, Starting on Sat04/08/25 at 1300, Until Sat04/09/25 at 1612, Give 1st line medications, then 2nd line, then 3rd line. Progress to next line if medication is ineffective after 15 minutes, or has been previously ineffective, or if a medication for a line is not ordered. May use medication from any line if patient preference indicates. If 3rd line agent is ineffective, call Practitioner. If unable to give IV medications contact Practitioner. Aromatherapy may be used at any time as adjunct therapy. 1st line: ondansetron (give ondansetron ODT (oral) if able to take oral, otherwise give IV) 2nd line: prochlorperazine 3rd line: metoclopramide ondansetron (ZOFRAN-ODT) disintegrating tablet 4 mg(Linked Group 5) 4 mg, Oral, Q6H PRN, Vomiting, Nausea, Starting on Alejandra 04/08/25 at 1300, Until Sat04/09/25 at 1612, Give 1st line medications, then 2nd line, then 3rd line. Progress to next line if medication is ineffective after 15 minutes, or has been previously ineffective, or if a medication for a line is not ordered. May use medication from any line if patient preference indicates. If 3rd line agent is ineffective, call Practitioner. If unable to give IV medications contact Practitioner. Aromatherapy may be used at any time as adjunct therapy. 1st line: ondansetron (give ondansetron ODT (oral) if able to take oral, otherwise give IV) 2nd line: prochlorperazine 3rd line: metoclopramide polyethylene glycol (MIRALAX) oral powder 8.5 g 8.5 g, Oral, DAILY PRN, Constipation, Other, Moderate constipation, Starting on Sat04/08/25 at 1300, Until Sat04/09/25 at 1612, Give first for moderate constipation povidone-iodine 10% in sodium chloride 500 mL sterile irrigation (surgery only) (CANCELED) ONCE PRN, Starting on Sat04/08/25 at 1053, Intra-op 1053 (Given - Provider: Brian Pan MD) prochlorperazine (COMPAZINE) injection 5 mg(Linked Group 5) 5 mg, Intravenous, Q6H PRN, Nausea, Vomiting, Starting on Sat04/08/25 at 1300, Until Sat04/09/25 at 1612, Give 1st line medications, then 2nd line, then 3rd line. Progress to next line if medication is ineffective after 15 minutes, or has been previously ineffective, or if a medication for a line is not ordered. May use medication from any line if patient preference indicates. If 3rd line agent is ineffective, call Practitioner. If unable to give IV medications contact Practitioner. Aromatherapy may be used at any time as adjunct therapy. 1st Line - ondansetron (give ondansetron ODT (oral) if able to take oral, otherwise give IV) 2nd Line -prochlorperazine 3rd Line - metoclopramide sodium chloride for irrigation 0.9 % (CANCELED) ONCE PRN, Starting on Sat04/08/25 at 1029, Intra-op 1029 (Given - Provider: Brian Pan MD) sodium phosphate (FLEET) enema 1 Enema 1 Enema, Rectal, PRN, Other, Severe constipation, Starting on Sat04/08/25 at 1300, Until Sat04/09/25 at 1612, Post-op vancomycin (VANCOCIN) powder for intra-op use (CANCELED) ONCE PRN, Starting on Sat04/08/25 at 1053, Until Sat04/08/25 at 1259, Intra-op 1053 (Given - Provider: Brian Pan MD - Comment: morteza in joint) Linked Groups Order Group 1: insulin lispro (HUMALOG; ADMELOG) injection vial 1-5 UnitsJump to med 1-5 Units, Subcutaneous, TID WITH MEALS, First dose on Sat04/08/25 at 2000, Correction Scale Insulin: Can be given with carb based insulin OR if patient is not eating or NPO, give within 15 minutes of POCT glucose. Blood Sugar 150 - 200 give 1 units Blood Sugar 201-250 give 2 units Blood Sugar 251-300 give 3 units Blood Sugar 301-350 give 4 units Blood Sugar greater than 350 give 5 units If Blood Sugar still greater than 350 after next POCT Glucose, notify Practitioner And insulin lispro (HUMALOG; ADMELOG) injection vial 1-4 UnitsJump to med 1-4 Units, Subcutaneous, HS, First dose on Sat04/08/25 at 2200, Correction Scale Insulin: Blood Sugar 201-250 give 1 units Blood Sugar 251-300 give 2 units Blood Sugar 301-350 give 3 units Blood Sugar greater than 350 give 4 units If Blood Sugar still greater than 350 after next POCT Glucose, notify Practitioner Group 2: lidocaine PF (XYLOCAINE) 1 % injection 0.1-0.3 mL (COMPLETED)Jump to med 0.1-0.3 mL, Intradermal, ONCE, On Alejandra 04/08/25 at 0715, For 1 dose, Lidocaine to be used for IV starts unless patient refuses., Pre-op And lidocaine PF (XYLOCAINE) 1 % injection 0.1-0.3 mL (CANCELED) 0.1-0.3 mL, Intradermal, PRN, Other, for additional IV starts, Starting on Alejandra 04/08/25 at 0650, Pre-op Group 3: glucose (GLUTOSE) 40 % oral gel 15 g of glucoseJump to med 15 g of glucose, Oral, Q15MIN PRN, Hypoglycemia, Per Hypoglycemia Treatment Protocol for age greater than 10 (adult and peds) AND weight 25 kg or greater, Starting on Sat04/08/25 at 1934, Until Sat04/09/25 at 1612, Per Hypoglycemia Episode: Give 15g orally, recheck POCT glucose in 15 minutes, if result less than 70 mg/dL, repeat treatment for hypoglycemia. After 2 doses notify Practitioner. May continue to treat while waiting for call back. 37.5g tube delivers 15g of glucose Or dextrose 50% (D50) injection 25 gJump to med 25 g, Intravenous, Q15MIN PRN, Hypoglycemia, Per Hypoglycemia Treatment Protocol for age greater than 10 (adult and peds) AND weight 25 kg or greater, Starting on Sat04/08/25 at 1934, Per Hypoglycemic episode: Give 25g IV push, recheck POCT glucose in 15 minutes, if result less than 70 mg/dL, repeat treatment for hypoglycemia. After 2 doses notify Practitioner. May continue to treat while waiting for call back. Or glucagon rDNA (diagnostic) (GLUCAGEN) injection 1 mgJump to med 1 mg, Intramuscular, Q15MIN PRN, Hypoglycemia, Per Hypoglycemia Treatment Protocol for age greater than 10 (adult and peds) AND weight 25 kg or greater, Starting on Sat04/08/25 at 1934, Until Sat04/09/25 at 1612, Per Hypoglycemic episode: Prior to administration, reconstitute glucagon vial with 1 mL of provided diluent or 1 mL of Sterile Water for Injection to make a 1 mg/1 mL solution. Give 1 mg IM, turn patient on side to prevent aspiration if vomits. If appropriate, establish IV access STAT. Recheck POCT glucose in 15 minutes, if result less than 70 mg/dL and still no IV access, may repeat 1 mg IM x 1. Recheck POCT glucose in 15 minutes, if result is less than 70 mg/dL notify Practitioner. Group 4: diphenhydrAMINE (BENADRYL) oral liquid 12.5-25 mgJump to med 12.5-25 mg, Oral, Q6H PRN, Itching, Starting on Sat04/08/25 at 1300, Until Sat04/09/25 at 1612, If able to take ORAL medications., Post-op Or diphenhydrAMINE (BENADRYL) injection 12.5-25 mgJump to med 12.5-25 mg, Intravenous, Q6H PRN, Itching, Starting on Alejandra 04/08/25 at 1300, Until Sat04/09/25 at 1612, Give IV only if unable to take ORALLY., Post-op Group 5: ondansetron (ZOFRAN-ODT) disintegrating tablet 4 mgJump to med 4 mg, Oral, Q6H PRN, Vomiting, Nausea, Starting on Alejandra 04/08/25 at 1300, Until Sat04/09/25 at 1612, Give 1st line medications, then 2nd line, then 3rd line. Progress to next line if medication is ineffective after 15 minutes, or has been previously ineffective, or if a medication for a line is not ordered. May use medication from any line if patient preference indicates. If 3rd line agent is ineffective, call Practitioner. If unable to give IV medications contact Practitioner. Aromatherapy may be used at any time as adjunct therapy. 1st line: ondansetron (give ondansetron ODT (oral) if able to take oral, otherwise give IV) 2nd line: prochlorperazine 3rd line: metoclopramide And ondansetron (ZOFRAN) injection 4 mgJump to med 4 mg, Intravenous, Q6H PRN, Nausea, Vomiting, Other, If unable to take ODT ondansetron, Starting on Alejandra 04/08/25 at 1300, Until Sat04/09/25 at 1612, Give 1st line medications, then 2nd line, then 3rd line. Progress to next line if medication is ineffective after 15 minutes, or has been previously ineffective, or if a medication for a line is not ordered. May use medication from any line if patient preference indicates. If 3rd line agent is ineffective, call Practitioner. If unable to give IV medications contact Practitioner. Aromatherapy may be used at any time as adjunct therapy. 1st line: ondansetron (give ondansetron ODT (oral) if able to take oral, otherwise give IV) 2nd line: prochlorperazine 3rd line: metoclopramide And prochlorperazine (COMPAZINE) injection 5 mgJump to med 5 mg, Intravenous, Q6H PRN, Nausea, Vomiting, Starting on Alejandra 04/08/25 at 1300, Until Sat04/09/25 at 1612, Give 1st line medications, then 2nd line, then 3rd line. Progress to next line if medication is ineffective after 15 minutes, or has been previously ineffective, or if a medication for a line is not ordered. May use medication from any line if patient preference indicates. If 3rd line agent is ineffective, call Practitioner. If unable to give IV medications contact Practitioner. Aromatherapy may be used at any time as adjunct therapy. 1st Line - ondansetron (give ondansetron ODT (oral) if able to take oral, otherwise give IV) 2nd Line -prochlorperazine 3rd Line - metoclopramide And metoclopramide (REGLAN) injection 5 mgJump to med 5 mg, Intravenous, Q6H PRN, Nausea, Vomiting, Starting on Alejandra 04/08/25 at 1300, Until Sat04/09/25 at 1612, Give 1st line medications, then 2nd line, then 3rd line. Progress to next line if medication is ineffective after 15 minutes, or has been previously ineffective, or if a medication for a line is not ordered. May use medication from any line if patient preference indicates. If 3rd line agent is ineffective, call Practitioner. If unable to give IV medications contact Practitioner. Aromatherapy may be used at any time as adjunct therapy. 1st Line - ondansetron (give ondansetron ODT (oral) if able to take oral, otherwise give IV) 2nd Line -prochlorperazine 3rd Line - metoclopramide Group 6: naloxone (NARCAN) injection 0.4 mgJump to med 0.4 mg, Intravenous, Q2MIN PRN, Opioid Reversal, Emergent Opioid Reversal (Respiratory Rate less than 6 breaths per minute or unresponsive to physical stimulation), Starting on Alejandra 04/08/25 at 1300, Until Sat04/09/25 at 1612, Give first dose, notify practitioner, and continue to observe. Repeat for up to 5 doses per episode until patient is responsive to physical stimulation and can take deep breaths. Or naloxone (NARCAN) injection 0.04 mgJump to med 0.04 mg, Intravenous, Q2MIN PRN, Opioid Reversal, Non-Emergent Opioid Reversal (Respiratory Rate less than 8 breaths per minute or difficult to arouse), Starting on Alejandra 04/08/25 at 1300, Until Sat04/09/25 at 1612, Dilution Instructions: Dilute 1 mL of 0.4 mg/mL naloxone vial into 9 mL of normal saline to make a final concentration of 0.04 mg/mL. Discard dose if not used within 1 hour. Use 1 mL of diluted 0.04 mg/mL strength slow IV push over 1 minute. Give first dose, notify practitioner, and continue to observe. Repeat for up to 5 doses per episode until patient is arousable and can take deep breaths. If no improvement in respiratory rate or remains difficult to arouse notify practitioner for additional orders. documented in this encounter Additional Health Concerns Active Problems Noted Date Diagnosed Date ET PROE SHELL PROBLEM TEMPLATE 07/17/2024 ET PROE GENERAL OUTCOMES KNEE REPLACEMENT - RIGH T 07/17/2024 ET PROE RIGHT KNEE 07/17/2024 documented as of this encounter Care Teams State Historical Society Director Relationship Specialty Start Date End Date Romulo Zimmer MD [facility] [place] [address] PCP - General Family Practice 04/15/24 documented as of this encounter
--- OUTSIDE RECORDS SUMMARY | 2025-04-08 08:30 | XMS_ITS | Encounter Summary ---
Author Organization [facility] Address [address], [place] [address] Care Team Providers Care Property Administrator Name Role Phone Romulo Zimmer MD Primary Care Provider [phone] Reason for Visit * Auth/Cert Specialty Diagnoses / Procedures Referred By Contac t Referred To Contact Diagnoses Closed fracture of head of left femur, initial encounter (HRC) Procedures ANTERIOR TOTAL HIP JOINT REPLACEMENT Referral ID Status Reason Start Date Expiration Date Visits Re quested Visits Authorized [id number] 1 1 Encounter Details Date Type Department Care Team (Late st Contact Info) Description 04/08/2025 8:30 AM CDT - 04/08/2025 11:05 AM CDT Surgery [facility] Operating Room [address] [facility]. [place], [place] [id number] Brian Pan MD [address] [place] [address] ANTERIOR TOTAL HIP JOINT REPLACEMENT Social History Tobacco Use Types Packs/Day Years Used Date Smoking Tobacco: Former Smokeless Tobacco: Never Comments:Quit smoking: Alcohol Use Standard Drinks/Week Comments Never 0 (1 standard drink = 0.6 oz pur e alcohol) [facility] Utilities Answer Date Recorded In the past 12 months has [employer] electric, gas, oil, or water company threatened [...] any time in the past 12 [facility], were you homeless or living in a care home (including now)? No 04/08/2025 Sex and Gender Information Value Date Recorded Sex Assigned at Not on file Legal Sex Male 11:13 PM CDT Gender Identity Not on file Sexual Orientation Not on file documented as of this encounter Last Filed Vital Signs Vital Sign Reading Time Taken Comments Blood Pressure 136/76 04/08/2025 7:12 AM CDT Pulse 62 04/08/2025 7:12 AM CDT Temperature 36.2 C (97.2 F) 04/08/2025 7:12 AM CDT Respiratory Rate 18 04/08/2025 7:12 AM CDT Oxygen Saturation 95% 04/08/2025 7:12 AM CDT Inhaled Oxygen Concentration - - Weight 110.2 kg (243 lb) 04/08/2025 7:12 AM CDT Height 177.8 cm (5' 10) 04/08/2025 7:12 AM CDT Body Mass Index 34.87 04/08/2025 7:12 AM CDT documented in this encounter Discharge Summaries * Flakita Ramires PA-C - 04/09/2025 9:58 AM CDT Ortho Discharge Summary Admission Date: 04/08/2025 Discharge Date: 04/09/2025 Admitting Diagnosis: Closed fracture of head of left femur, initial encounter ([facility]) [S72.052A] Discharge diagnosis: s/p left total hip [...] Your Medications These medications were sent to [facility] [address] [place], [place] [id number] Hours: Open 24x7 acetaminophen 500 MG tablet [...] surgical and wound concerns Order Comments: Call [phone] (orthopedic triage nurse line) 8:00 AM to 5:00 PM Saturday-Saturday. Call [phone] (Orthopedic office) evening hours, weekend and holidays. Not all post-operative infections can be prevented, but early detection and proper treatment can prevent major catastrophes. Do not start antibiotics for incision infections without contacting the orthopedic surgeon first. IF in doubt, call the orthopedic surgeon. For non-urgent orthopedic questions Order Comments: [facility] Nurse Triage at [phone] Saturday-Saturday 8:00 AM to 5:00 PM. Pain Medication Refills Order Comments: Contact your pharmacy or surgeon's office. Please allow at least 2 business days for these requests to be addressed. Pain medications will NOT be refilled on weekends, holidays, or after 4:30 PM on week. Please be aware that some insurance companies [...] incentive spirometer use *Practice good oral care. [place] your teeth and use mouthwash twice daily. [...] Diet Order Comments: Removal of stiches or ramandeep Order Comments: They will be removed at [...] Care Everywhere. * Hip: Arthroscopy: Post op (Indonesian) documented in this encounter Medications at Time [...] 60 Tablet 04/09/2025 1:09 PM CDT 04/08/2025 documented as of this encounter Progress Notes [...] including possible side effects. Prescriptions filled by [facility] pharmacy. Belongings checklist reviewed with patient and significant other and belongings sent. Equipment sent: none. Supplies sent none. Care plan issues addressed and education record updated. R: Patient and significant other verbalizes understanding and teaches back discharge instructions. Patient discharged by: wheelchair with staff. * Kiesha Pereira RN - 04/09/2025 1:00 PM CDT Patient. A&O. Pain 12/14, no c/o acute distress. Dreg has scant [...] as to acetabulum. By Dr. Pan at [facility]. Subjective/General Information Reason for admit/therapy [...] hopeful to go home Pain: At rest 410, 0 with activity Tolerance/Cooperation: good Objective Location of [...] IP Frequency: discharged Plan for next session: JOHNATHON SONI OT Therapist signature: ANÍBAL Burns 8:54 AM 04/09/2025 * Jessy Roland, PT [...] as to acetabulum. By Dr. Pan at [facility]. Order: Eval and Treat: Issue [...] supervision # of steps: 3 up/down Pattern: [id number]-[id number]-bkqa ascent and Step-to descent Instruction provided: step-to [...] Labs and Imaging reviewed in [facility] and pertinent positives are as follows: Labs: [...] - 04/08/2025 3:19 PM CDT Shift Update: [id number] Goals for Progression of Care: 1) stable post op period 2) Pain control 3) Participate in therapy 4) Void 5) Tolerate PO Outcomes of Goals: 1) VSS since return from PACU. Weaned to room air. 2) Good pain control with Tylenol and Dilaudid 3) Participated in OT so far 4) Has not voided yet. 5) Tolerating oral intake * Emelia Garnica, OTR/L - 04/08/2025 1:20 PM CDT Occupational [...] as to acetabulum. By Dr. Pan at [facility]. order: Eval and Treat: Orthopedic [...] 0 to 10 (low to high): Location: L LE Impairments: Patient's impairments are: Decreased endurance/activity tolerance, [...] mobility with standby assist in 3 days. manager terminal goal: Patient will maximize independence and safety [...] (OT) Discharge Recommendations Discussion: Discussed with, patient, family/residential caregiver Signature: ANÍBAL Bangura 3:49 PM 04/08/2025 NOTE: The clinician's signature certifies medical necessity for the treatment plan above. Cosigned by Lizzy Crews PA-C at 04/08/2025 3:57 PM CDT * Evelyn Murray RN - 04/08/2025 1:10 PM CDT POST-OP O: Patient will have a stable post-op period. D: Pt arrived to room 2W26/3O15-03, at 1310 (time). Patient is alert and [...] Borges OA - 04/08/2025 11:29 AM CDT [facility] Brief Operative Progress Note Surgery Date: 04/08/2025 Surgeons and Role: * Brian Pan MD - Primary * Lizzy Crews PA-C - Assisting * DAPHNIE Boucher - Assisting Pre-op Diagnosis: * Closed fracture of head of left femur, initial encounter (HRC) [S72.052A] Post-op Diagnosis: Post-Op Diagnosis Codes: * Closed fracture of head of left femur, initial encounter (HRC) [S72.052A] Procedures with associated lateralities: Procedure(s) (LRB): [...] Intra-op Bracing/Splinting: None Elevation: PRN Skin Closure: Ramandeep Dressings: Keep Mepilex dressing in place until [...] form of this brief op note. An customer assistant was required during this procedure, allowing the surgeon to safely and efficiently operate. Signed by DAPHNIE Arteaga on 04/08/2025 at 11:29 AM * Brian Pan MD - 04/08/2025 11:26 AM CDT NAME: David Benito : 1950 PN AUTHENTICATING CLINICIAN: Brian Pan MD OPERATIVE REPORT DATE OF OPERATION: 04/08/25 SURGEON: Brina Pan MD CONVEYOR MAINTENANCE MECHANIC: DAPHNIE Boucher, Lizzy Crews PAC Lizzy Crews PA-C, was required for first aid attendant for patient positioning, maintaining fracture reduction, retraction and incision closure. An customer assistant was required during the critical portions [...] identified and the canal opened with a drink box mechanic, followed by a canal finder. The canal [...] 2-0 Vicryl. The skin was closed with ramandeep. Sterile dressings were applied and the patient [...] CDTAssociated Order(s): CARE MANAGEMENT CONSULT - [facility] Care Management Inpatient Note Plan: Expected Discharge [...] to the assigned Hospital Care Management treatment steam heating installer to assess. Patient/Spokesperson Updated: No Evelyn Rosado, RN 10:28 AM 04/09/2025 * Jeanie Barboza [...] Barboza APRN, CNP Department of Hospital Medicine [facility] documented in this encounter Plan of Treatment Upcoming Encounters Date Type Department Care Team (Late st Contact Info) Description 05/26/2025 10:20 AM CDT Appointment [facility] Orthopedic [facility] [address] [place] [address] Lizzy Crews PA-C [address] [place] [id number] documented as of this encounter Goals Goal [...] of head of left femur, initial encounter ([facility]) ECG 12 LEAD INPATIENT Routine 04/08/2025 7:42 [...] - 180 mg/dL 04/09/2025 11:55 AM CDT [facility] Performing Location [place] [facility] 04/09/2025 11:55 AM CDT [facility] Blood 04/09/2025 11:5 3 AM CDT 04/09/2025 11:55 AM CDT us Brian Pan MD LAB_1 Final Resu lt [facility] [address] [employer] [address] * (ABNORMAL) Complete Blood Count-W/Diff (04/09/2025 10:21 AM CDT) [facility] WBC 10.2 3.5 - 10.5 x10(9)/L 04/09/2025 10:28 AM CDT [facility] RBC 4.22(L) 4.32 - 5.72 x10(12)/L 04/09/2025 10:28 AM CDT [facility] Hemoglobin 13.6 13.5 - 17.5 g/dL 04/09/2025 10:28 AM CDT [facility] HCT 39.4 38.8 - 50.0 % 04/09/2025 10:28 AM CDT [facility] MCV 93.4 80.0 - 100.0 fL 04/09/2025 10:28 AM CDT [facility] MCH 32.2 27.6 - 33.3 pg 04/09/2025 10:28 AM CDT [facility] MCHC 34.5 31.5 - 35.2 g/dL 04/09/2025 10:28 AM CDT [facility] RDW 13.3 11.9 - 15.5 % 04/09/2025 10:28 AM CDT [facility] Platelets 153 150 - 450 x10(9)/L 04/09/2025 10:28 AM CDT [facility] Automated NRBC 0 <=0 /100 WBC 04/09/2025 10:28 AM CDT [facility] Neutrophil Absolute 8.4(H) 1.7 - 7.0 10(9)/L 04/09/2025 10:28 AM CDT [facility] Lymphocyte Absolute 0.5(L) 1.0 - 4.8 10(9)/L 04/09/2025 10:28 AM CDT [facility] Monocyte Absolute 1.2(H) 0.2 - 0.9 10(9)/L 04/09/2025 10:28 AM CDT [facility] Eosinophil Absolute 0.0 0.0 - 0.5 10(9)/L 04/09/2025 10:28 AM CDT [facility] Basophil Absolute 0.0 0.0 - 0.3 10(9)/L 04/09/2025 10:28 AM CDT [facility] Immature Granulocyte % 0.3 0.0 - 0.5 % 04/09/2025 10:28 AM CDT [facility] Blood Venipuncture / Unknown 04/09/2025 10:21 AM CDT 04/09/2025 10:26 AM CDT Jeanie Barboza APRN, WINDOW TRIMMER LAB_1 Final Result Performing Organization Address City[facility]/ZIP Co de Phone Number [facility] [address] [place] [address] * Phosphorus (IN AM) (04/09/2025 10:21 AM CDT) Phosphorus 4.4 2.3 - 4.7 mg/dL 04/09/2025 11:01 AM CDT [facility] Blood Venipuncture / Unknown 04/09/2025 10:21 AM CDT 04/09/2025 10:26 AM CDT Jeanie Barboza BARREL PAINTER, WINDOW TRIMMER LAB_1 Final Result Performing Organization Address [facility]/ZIP Co de Phone Number [facility] [address] [place] [address] * Magnesium (IN AM) (04/09/2025 10:21 AM CDT) Magnesium 1.6 1.6 - 2.6 mg/dL 04/09/2025 11:01 AM CDT [facility] Blood Venipuncture / Unknown 04/09/2025 10:21 AM CDT 04/09/2025 10:26 AM CDT Jeanie Barboza APRN, WINDOW TRIMMER LAB_1 Final Result Performing Organization Address [facility]/ZIP Co de Phone Number [facility] [address] * (ABNORMAL) Basic Metabolic Panel (IN AM) (04/09/2025 10:21 AM CDT) [facility] Sodium 137 136 - 145 mmol/L 04/09/2025 11:01 AM CDT [facility] Potassium 4.7 3.5 - 5.1 mmol/L 04/09/2025 11:01 AM CDT [facility] Chloride 102 98 - 109 mmol/L 04/09/2025 11:01 AM CDT [facility] CO2 27 20 - 29 mmol/L 04/09/2025 11:01 AM CDT [facility] Anion Gap 8 6 - 16 mmol/L 04/09/2025 11:01 AM CDT [facility] Calcium 8.9 8.4 - 10.4 mg/dL 04/09/2025 11:01 AM CDT [facility] BUN 29(H) 7 - 26 mg/dL 04/09/2025 11:01 AM CDT [facility] Creatinine 0.86 0.73 - 1.18 mg/dL 04/09/2025 11:01 AM CDT [facility] Glucose 129(H) 70 - 100 mg/dL 04/09/2025 11:01 AM T [facility] Comment:The given reference range is for the fasting state. Non-fasting reference range for glucose is 70 - 180 mg/dL. GFR, Estimated >60 >60 mL/min/1.7 3m2 04/09/2025 11:01 AM CDT [facility] Blood Venipuncture / Unknown 04/09/2025 10:21 AM CDT 04/09/2025 10:26 AM CDT Jeanie Barboza APRN, WINDOW TRIMMER LAB_1 Final Result [facility] [address] * XR Pelvis W Lt Lateral [...] by: Mike Blankenship 04/09/2025 11:33 AM Lizzy SALES GD Final Resu lt * Glucose, Whole Blood POCT (04/09/2025 7:25 AM CDT) Glucose, Whole Blood 176 70 - 180 mg/dL 04/09/2025 7:27 AM CDT [facility] Performing Location [place] 04/09/2025 7:27 AM CDT [facility] Blood 04/09/2025 7:25 AM CDT 04/09/2025 7:27 AM CDT Brian Pan MD LAB_1 Final Resu lt [facility] [address] [place], [place] [id number] [place] [address] * (ABNORMAL) Glucose, Whole Blood POCT (04/08/2025 9:03 PM CDT) Glucose, Whole Blood 246(H) 70 - 180 mg/dL 04/08/2025 9:04 PM CDT [facility] Performing Location [place] 04/08/2025 9:04 PM CDT [facility] Blood 04/08/2025 9:03 PM CDT 04/08/2025 9:04 PM CDT Brian Pan MD LAB_1 Final Resu lt Performing Organization Address [facility] de Phone Number [facility] [address] [place] [address] * (ABNORMAL) Glucose, Whole Blood POCT (04/08/2025 4:56 PM CDT) Glucose, Whole Blood 280(H) 70 - 180 mg/dL 04/08/2025 4:58 PM CDT [facility] Performing Location [place] [facility] 04/08/2025 4:58 PM CDT [facility] Blood 04/08/2025 4:56 PM CDT 04/08/2025 4:58 PM CDT Brian Pan MD LAB_1 Final Resu lt Performing Organization Address [facility] Phone Number [facility] [address] [place] [address] * FL C Arm (04/08/2025 11:07 AM [...] GHP QTC 438 ms MUSE GHP P [place]chard 47 degrees MUSE GHP R [place]chard -49 degrees MUSE GHP T [place] 13 degrees MUSE GHP 04/08/2025 7:42 AM CDT Narrative [facility] - 04/08/2025 8:44 AM CDT Sinus bradycardia Right bundle branch block Left anterior fascicular block Bifascicular block Minimal voltage criteria for LVH, may be normal variant Abnormal ECG No previous ECGs available Confirmed by Camacho Penaolza ([id number]) on 04/08/2025 8:44:20 AM Procedure Note Camacho Penaloza MD - 04/08/2025 Sinus bradycardia Right bundle branch block Left anterior fascicular block Bifascicular block Minimal voltage criteria for LVH, may be normal variant Abnormal ECG No previous ECGs available Confirmed by Camacho Penaloza ([id number]) on 04/08/2025 8:44:20 AM Brian Pan MD PN ECG ORDERABLES Final Re sult [facility] [address] [place] [address] * (ABNORMAL) Hgb A1C (04/08/2025 7:14 AM CDT) Hemoglobin A1C 6.5(H) <=5.6 % 04/08/2025 12:16 PM CDT [facility] Estimated Average Glucose (Calc) 140 < 117 mg/dL 04/08/2025 12:16 PM CDT [facility] Comment:Estimated average gl ucose (eAG) converts A1c into glucose units (mg/dL) and estimates average glucose over the past approximately 3 months. The eAG reference interval (<117 mg/dL) corresponds to an A1c of <5.7%. Blood Venipuncture / Unknown 04/08/2025 7:14 AM CDT 04/08/2025 7:24 AM CDT [facility] - 04/08/2025 12:16 PM CDT For patients not previously diagnosed with diabetes: 5.7-6.4%: Increased risk for diabetes 6.5% and greater: Diagnostic for diabetes For patients diagnosed with diabetes: <8.0%: Goal of therapy for ages 18-75 Clinicians may recommend a higher or lower goal for specific individuals. Brian Pan MD LAB_1 Final Resu Performing Organization Address [facility]/ZIP Co de Phone Number [facility] [address] * Hemoglobin for all patients that have a Draw and Hold, Type and Screen, or Type and Cross ordered (04/08/2025 7:14 AM CDT) Hemoglobin 16.0 13.5 - 17.5 g/dL 04/08/2025 7:28 AM CDT [facility] Blood Venipuncture / Unknown 04/08/2025 7:14 AM CDT 04/08/2025 7:24 AM CDT Brian Pan MD LAB_1 Final Resu Performing Organization Address [facility] Co de Phone Number [facility] [address] * Draw & Hold - Inpatient Only (04/08/2025 7:14 AM CDT) Pathologist [facility] BB DRAW AND HOLD Received in BB 04/08/2025 7:37 AM CDT [facility] Blood Venipuncture / Unknown 04/08/2025 7:14 AM CDT 04/08/2025 7:24 AM CDT Brian Pan MD LAB_1 Final Resu Performing Organization Address [facility] Co de Phone Number [facility] [address] * POTASSIUM (04/08/2025 7:14 AM CDT) Potassium 4.2 3.5 - 5.1 mmol/L 04/08/2025 7:44 AM CDT [facility] Blood Venipuncture / Unknown 04/08/2025 7:14 AM CDT 04/08/2025 7:24 AM CDT us Brian Pan MD LAB_1 Final Resu lt [facility] [address] [place] [address], [facility] documented in this encounter Visit Diagnoses Diagnosis Pain Generalized pain Closed fracture of head of left femur (HRC) Other closed transcervical fracture of femur Closed fracture of head of left femur, initial encounter ([facility]) * Plan of Care - Jacquelyn Solorzano [...] Jordan, PharmD - 04/08/2025 1:39 PM CDT [facility] Medication History Note 1. Source(s) of Medication Information: Patient, SuzetteScripts/Dr. Lizarraga 2. Pertinent Information: Recent prior to admission medication changes: Medications added: none Medications deleted: none Medications changed: 1- atorvastatin dose changed from 20 to 40 mg daily This medication history was completed by using prescription dispense data. [id number] products not assessed and left on current [...] 1,000 mg 1,000 mg, Oral, ONCE, On Sat04/08/25 at 0715, For 1 dose, Give in [...] 5 Minutes, Q8H (NON-STND), First dose on Alejandra 04/08/25 at 1800, For 2 doses, Administer IV push over 5 minutes., Post-opIndications:Surgical Prophylaxis Given 04/09/2025 1:46 AM CDT 2 g 240 mL/hr Given 04/08/2025 6:26 PM CDT 2 g 240 mL/hr dextrose 50% (D50) injection 25 g 25 g, Intravenous, Q15MIN PRN, Hypoglycemia, Per Hypoglycemia Treatment Protocol for age greater than 10 (adult and peds) AND weight 25 kg or greater, Starting on Alejandra 04/08/25 at 1934, Per Hypoglycemic episode: Give 25g [...] mg, Oral, Q6H PRN, Itching, Starting on Alejandra 04/08/25 at 1300, Until Sat04/09/25 at 1612, If able to take ORAL medications., Post-op fentaNYL (SUBLIMAZE) injection 25 mcg 25 mcg, Intravenous, [id number], Pain, the immediate postop period when longer acting agent is desired, Starting on Alejandra 04/08/25 at 0718, Until Alejandra 04/08/25 at 1259, Use fentanyl as first line [...] weight 25 kg or greater, Starting on Alejandra 04/08/25 at 1934, Until Sat04/09/25 at 1612, Per [...] weight 25 kg or greater, Starting on Alejandra 04/08/25 at 1934, Until Sat04/09/25 at 1612, Per [...] Starting on Alejandra 04/08/25 at 0718, Until Alejandra 04/08/25 at 1259, Use hydromorphone if fentanyl is [...] opioid administration. Do not give if on CONTROL ROOM HELPER. Use of ORAL opioids is encouraged as [...] infusion 25 mL/hr, Intravenous, CONTINUOUS, Starting on Sat04/08/25 at 0715, Administer on all preop surgery [...] IV) 2nd line: prochlorperazine 3rd line: metoclopramide povidone-iodine 10% in sodium chloride 500 mL sterile irrigation (surgery only) ONCE PRN, Starting on Alejandra 04/08/25 at 1053, Intra-op Given 04/08/2025 10:53 AM CDT 517.5 mL Left Hip prochlorperazine (COMPAZINE) injection 5 mg 5 mg, [...] Given 04/08/2025 7:59 PM CDT 1 Tablet sodium chloride for irrigation 0.9 % ONCE PRN, Starting on Sat04/08/25 at 1029, Intra-op Given 04/08/2025 10:29 AM CDT 1,000 mL Le ft Hip vancomycin (VANCOCIN) powder for intra-op use ONCE PRN, Starting on Sat04/08/25 at 1053, Until Sat04/08/25 at 1259, Intra-op Given 04/08/2025 10:53 AM CDT 1,000 mg Left Hip documented in this encounter Active and Recently Administered Medications Times are shown in CDT. Scheduled Medication Order 04/07/2025 04/08/2025 04/09/2025 acetaminophen (TYLENOL) tablet 1,000 mg (COMPLETED) 1,000 mg, Oral, ONCE, On Alejandra 04/08/25 at 0715, For 1 dose, Give in Preop., Pre-op 804 (Given - Provider: Hilaria Martini RN) acetaminophen (TYLENOL) tablet 650 mg 650 mg, Oral, Q6H, First dose on Alejandra 04/08/25 at 1400, Until Discontinued, Post-op 1407 (Given - Provider: Evelyn Murray RN) 0146 (Given - Provider: Jacquelyn Solorzano, CARO)0738 (Given - Provider: Melonie Sotelo RN)1226 (Not Given - Provider: Kiesha Pereira RN - Reason: Patient/family refused) aspirin EC enteric coated tablet 162 mg 162 mg, Oral, DAILY, First dose on Alejandra 04/08/25 at 2000, Until Discontinued, Begin day of surgery., Post-op 1958 (Given - Provider: Natalia Naranjo RN) 0737 (Given - Provider: Melonie Sotelo RN) atorvastatin (LIPITOR) tablet 40 mg 40 mg, Oral, DAILY, First dose on Sat04/09/25 at 0800, Until Discontinued 0738 (Given - Provid er: Melonie Sotelo RN) ceFAZolin (ANCEF) 2 g in sterile water for injection 20 mL premade IV syringe (COMPLETED) 2 g, Intravenous, Administer over 5 Minutes, ONCE, On Alejandra 04/08/25 at 0715, For 1 dose, Infuse within 60 minutes prior to incision; Re-dose 1 gram IV every 4 hours after initial dose until incision closed. Administer IV push over 5 minutes., Pre-op 09 (Given - Provider: Wanda Kidd APRN, POCKET STITCHER) ceFAZolin (ANCEF) 2 g in sterile water for injection 20 mL premade IV syringe (COMPLETED) 2 g, Intravenous, Administer over 5 Minutes, Q8H (NON-STND), First dose on Alejandra 04/08/25 at 1800, For 2 doses, Administer IV push over 5 minutes., Post-op 182 (Given - Provider: Althea Pierce RN) 0146 (Given - Provider: Jacquelyn Solorzano RN) hydroCHLOROthiazide (ORETIC) tablet 12.5 mg 12.5 mg, [...] in Manage Orders - Provider: Inpatient Template [facility]) insulin lispro (HUMALOG; ADMELOG) injection vial 1-4 [...] notify Practitioner 2133 (Given - Provider: Natalia Naranjo RN) insulin lispro (HUMALOG; ADMELOG) injection vial 1-5 [...] not met) 0743 (Given - Provider: Melonie Sotelo RN)1227 (Not Given - Provider: Kiesha Pereira RN [...] in Manage Orders - Provider: Inpatient Template [facility]) magnesium hydroxide (MILK OF MAGNESIA) suspension 30 mL 30 mL, Oral, DAILY (NS), First dose on Sat04/09/25 at 0800, Until Discontinued, DO NOT GIVE if loose stools., Post-op 07 (Given - Provid er: Melonie Sotelo RN) senna (SENOKOT) tablet 1 Tablet 1 Tablet, Oral, DAILY, First dose on Sat04/08/25 at 2000, Until Discontinued, Give every day while on opioids (stimulant) starting day of surgery. DO NOT GIVE if loose stools., Post-op 1958 (Given - Provider: Natalia Naranjo RN) 0737 (Given - Provider: Melonie Sotelo RN) Continuous Medication Order 04/07/2025 04/08/2025 04/09/2025 lactated ringers infusion (CANCELED) 25 mL/hr, Intravenous, CONTINUOUS, Starting on Sat04/08/25 at 0715, Administer on all preop surgery patients, ages 12 and older, unless specified differently in the Protocol for Preop Initiation of IV fluids Order Set., Pre-op 08 (Started - Provider: Johnathon Martini RN)1339 (Infused - Provider: Evelyn Murray [...] mg, Oral, Q6H PRN, Itching, Starting on Alejandra 04/08/25 at 1300, Until Sat04/09/25 at 1612, If able to take ORAL medications., Post-op fentaNYL (SUBLIMAZE) injection 25 mcg (CANCELED) 25 mcg, Intravenous, [id number], Pain, the immediate postop period when longer [...] by 3 in 30 minutes., Starting on Alejandra 04/08/25 at 1300, Until Sat04/09/25 at 1612, For 48 hours, May administer 1 hour after ORAL opioid administration if given for pain score escalation. Do NOT administer at the same time as ORAL opioids. Do not give if on CONTROL ROOM HELPER., Post-op HYDROmorphone (DILAUDID) tablet 2-4 mg 2-4 mg, Oral, Q2H PRN, Other, Moderate Pain (pain score 5-7), Severe Pain (pain score 8-10), Starting on Alejandra 04/08/25 at 1140, Until Sat04/09/25 at 1612, Do NOT administer at the same time as IV opioids. May administer 1 hour after IV opioid administration. Do not give if on CONTROL ROOM HELPER. Use of ORAL opioids is encouraged as patients anticipate discharge. (IV medications will be discontinued 48 hours post-op.) Post-op May give for anticipatory pain (i.e. prior to therapies, procedures) regardless of current pain score, Post-op 1157 (Given - Provider: Ericka Mason RN)1408 (Given - Provider: Evelyn Murray RN)1959 (Given - Provider: Natalia Naranjo RN) 0150 (Given - Provider: Jacquelyn Solorzano RN - Comment: anticipatory, getting up to bathroom)0738 [...] 0.9 % (CANCELED) ONCE PRN, Starting on Alejandra 04/08/25 at 1029, Intra-op 1029 (Given - Provider: Brian Pan MD) sodium phosphate (FLEET) enema 1 Enema 1 Enema, Rectal, PRN, Other, Severe constipation, Starting on Sat04/08/25 at 1300, Until Sat04/09/25 at 1612, Post-op vancomycin (VANCOCIN) powder for intra-op use (CANCELED) ONCE PRN, Starting on Alejandra 04/08/25 at 1053, Until Alejandra 04/08/25 at 1259, Intra-op 1053 (Given - Provider: [...] to med 0.1-0.3 mL, Intradermal, ONCE, On Sat04/08/25 at 0715, For 1 dose, Lidocaine to be used for IV starts unless patient refuses., Pre-op And lidocaine PF (XYLOCAINE) 1 % injection 0.1-0.3 mL (CANCELED) 0.1-0.3 mL, Intradermal, PRN, Other, for additional IV starts, Starting on Sat04/08/25 at 0650, Pre-op Group 3: glucose (GLUTOSE) [...] documented as of this encounter Care Teams Property Administrator Relationship Specialty Start Date End Date Romulo Zimmer MD [facility] [place] [address] PCP - General Family Practice 04/15/24 documented as of this encounter
--- OUTSIDE RECORDS SUMMARY | 2025-04-08 09:20 | XMS_ITS | Encounter Summary ---
Author Organization [employer] Address [address] [place] [address] Care Team Providers Care Alarm Technician Name Role Phone Romulo Zimmer MD Primary Care Provider [phone] Reason for Visit * Auth/Cert Specialty Diagnoses / Procedures Referred By Contac t Referred To Contact Diagnoses Closed fracture of head of left femur, initial encounter ([facility]) Procedures ANTERIOR TOTAL HIP JOINT REPLACEMENT Referral ID Status Reason Start Date Expiration Date Visits Re quested Visits Authorized [id number] 1 1 Encounter Details Date Type Department Care Team (Late st Contact Info) Description 04/08/2025 9:20 AM CDT Anesthesia Event [facility] [address] [facility] [place], [place] [id number] Kan Guzman MD [address] [place] [address] Ar Enamorado MD [address] [place] [address] Anesthesia Record Procedure Summary Procedure Name Responsible Anesthesiologist Anesthesia Start Time Anesthesia Stop Time ANTERIOR TOTAL HIP JOINT REPLACEMENT (Left: Hip) Kan Guzman MD 04/08/25 0920 04/08/25 1130 Events Date Time Event Comment 04/08/2025 0919 0920 An Start 0924 An Start Data 0925 Face Tent 0929 MD/DO Present 0941 MD/DO Present 1014 MD/DO Present 1108 MD/DO Present 1125 an stop data 1130 Care Handoff Note I discusse d with the receiving nurse and we: 1) Identified the patient, romero family member(s) or patient surrogate 2) Identified the responsible practitioner 3) Reviewed the pertinent medical history 4) Discussed the surgical/procedure course 5) Reviewed intra-op anesthesia management and issues during anesthesia 6) Set expectations for the post-procedure period 7) Allowed opportunity for questions and acknowledgement of understanding of report Electronically signed by Wanda Kidd APRN, DESCRIPTIVE CATALOG LIBRARIAN 1130 An Stop Care transferre d. Meds Name Total fentaNYL injection (SUBLIMAZE) 50 mcg lidocaine 1% PF injection (XYLOCAINE) 50 mg lidocaine PF 1 % injection 5 mL propofol 10 mg/mL for procedural sedatio n (aka diPRIvan) 415.01 mg phenylephrine 100 mcg/mL in NaCl 0.9% sy ringe 2,173.2 mcg ePHEDrine 10 mg/mL injection 25 mg BUPivacaine-dextrose 0.75-8.25% intrathe jalen injection 1.6 mL ceFAZolin (ANCEF) 2 g in nancy rile water for injection 20 mL premade IV syringe 2 g dexAMETHasone (DECADRON) 4 mg/mL injecti on 8 mg tranexamic acid (CYKLOKAPRON ) 1000 mg in sodium chloride 0.9% (10 mg/mL) 100 mL IVPB premix 2,000 mg * Agents Name O2 N2O Air Nitrous Oxide () * Blood No blood administrations on file. Lines, Drains, and Airways Type Details Placement Removal Peripheral IV Placement Date: 04/08/25; Placement Time: 0804; Pre-existing: No; Inserted by?: RN; Size (Gauge): 20 G; Orientation: Left; Site Prep: ChloraPrep; Local Anesthetic: Lidocaine 1%, Injectable; Insertion attempts: 1; Blood draw with insertion?: no; Patient Tolerance: Tolerated well; Removal Date: 04/09/25; Removal Time: 1302; Removal Reason: No longer needed; Catheter Tip: Intact 04/08/25 0804 by Hilaria Martini RN 04/09/25 1302 by Kiesha Pereira RN Incision/Surgical Site 04/08/25; 1007; # 1; No; Hip; Anterior, Left; 04/23/25; 1412 04/08/25 1007 by Swati Dhaliwal RN 04/23/25 1412 by Faith Dela Cruz documented in this encounter Social History Tobacco Use Types Packs/Day Years Used Date Smoking Tobacco: Former Smokeless Tobacco: Never Comments:Quit smoking: Alcohol Use Standard Drinks/Week Comments Never 0 (1 standard drink = 0.6 oz pur e alcohol) [facility] Utilities Answer Date Recorded In the past 12 months has e [place], gas, oil, or water [employer] threatened to shut off services in your [...] money to buy more. Never true 04/08/20 Within the past 12 months, t he [...] any time in the past [address] [facility], were you homeless or living in a retirement (including now)? No 04/08/2025 Sex and Gender Information Value Date Recorded Sex Assigned at Not on file Legal Sex Male 11:13 PM CDT Gender Identity Not on file Sexual Orientation Not on file documented as of this encounter Miscellaneous Notes * Anesthesia Postprocedure Evaluation - Kan Guzman MD - 04/08/2025 12:48 PM CDT [facility] Anesthesia Post-op Note Patient: David Benito Post-Op Diagnosis: Pre-Op Diagnosis Codes: * Closed fracture of head of left femur, initial encounter ([facility]) [S72.052A] Procedures performed: ANTERIOR TOTAL HIP JOINT REPLACEMENT (Left: Hip) Anesthesia Type: Spinal Post-op vital signs: Vitals Value Taken Time BP 133/81 04/08/25 1246 Temp 36.7 ??C (98.1 ??F) 04/08/25 1130 Pulse 59 04/08/25 1247 Resp 15 04/08/25 1247 SpO2 95 % 04/08/25 1247 Vitals shown include unfiled device data. Pain Assessment Preferred Pain Scale: number (Numeric Rating Pain Scale) Last recorded pain score: 2 Post-op assessment: Patient location: PACU Airway Status: Patent Cardiovascular function: Satisfactory Hydration status: Satisfactory PONV: None Level of Consciousness: Awake Fully Participates Postop Assessment: Patient tolerated procedure well. Electronically signed by: Kan Guzman MD 04/08/2025 12:48 PM * Anesthesia Procedure Notes - Wanda Kidd APRN, HARI - 04/08/2025 9:42 AM CDTAssociated Order(s): Spinal Block Spinal Block Performed by: Ar Enamorado MD Authorizing/Supervising provider: Ar Enamorado MD Block Start: 04/08/2025 9:29 AM Block end: 04/08/2025 9:40 AM Performed by: Anesthesiologist Patient Location OR Checklist: risks and benefits discussed, IV checked, anesthesia consent, monitors and equipment checked, patient identified and pre-op evaluation Patient Position: sitting Sterile prep: Betadine, Sterile gloves, Mask and Hat Insertion site: L4-5 Approach: midline Needle type: Carolyn Needle gauge: 25 G Needle length: 5 in Introducer needle used Attempts: 3 (Deeper than expected, bone at L2/3 and L3/4) Redirects: 3 Monitoring: painter and body mechanic apprentice and continuous pulse ox Paresthesias: No Events: None Complications: none Pt tolerated procedure well Notes: Signed by MD Kelsea Medications from procedure kit: lidocaine PF 1 % injection - Subcutaneous 5 mL - 04/08/2025 9:32:00 AM BUPivacaine-dextrose 0.75-8.25% intrathecal injection - Intrathecal 1.6 mL - 04/08/2025 9:40:00 AM * Anesthesia Preprocedure Evaluation - Ar Enamorado MD - 04/08/2025 7:22 AM CDT [facility] Anesthesia Pre-op Evaluation Procedure: ANTERIOR TOTAL HIP JOINT REPLACEMENT, Left - Hip HPI: 75 y.o. old male. Pre-Op Diagnosis Codes: * Closed fracture of head of left femur, initial encounter (HRC) [S72.052A] No Known Allergies No past medical history on file. Patient Active Problem List Diagnosis Primary osteoarthritis of right knee Closed fracture of head of left femur (HRC) Past Surgical History: Procedure Laterality Date APPENDECTOMY KNEE REPLACEMENT Right 09/14/2024 TOTAL KNEE JOINT REPLACEMENT - RIGHT - Right KNEE SURGERY Outpatient Medications as of 04/08/2025 Medication Sig amoxicillin (AKA AMOXIL) 500 MG tablet Take all 4 tablets one hour before dental work. atorvastatin (LIPITOR) 20 MG tablet Take 1 Tablet (20 mg) by mouth daily. [] diclofenac (VOLTAREN) 75 MG enteric coated tablet Take 1 Tablet (75 mg) by mouth two times daily as needed for up to 14 days. lisinopril-hydroCHLOROthiazide (PRINZIDE) 20-12.5 MG tablet Take 1 Tablet by mouth daily. Meloxicam (MOBIC) 15 MG tablet Take 1 Tablet (15 mg) by mouth. multivitamin (THERAGRAN) tablet Take 1 Tablet by mouth daily. unknown medication Indications: PN: Facility-Administered Medications as of 04/08/2025 Medication Dose Route Frequency acetaminophen (TYLENOL) tablet 1,000 mg 1,000 mg Oral Once ceFAZolin (ANCEF) 2 g in sterile water for injection 20 mL premade IV syringe 2 g Intravenous Once fentaNYL (SUBLIMAZE) injection 25 mcg 25 mcg Intravenous Q5MIN PRN fentaNYL (SUBLIMAZE) injection 25-50 mcg 25-50 mcg Intravenous Q5MIN PRN HYDROmorphone (DILAUDID) injection 0.25 mg 0.25 mg Intravenous Q10MIN PRN lactated ringers infusion 25 mL/hr Intravenous Continuous lidocaine PF (XYLOCAINE) 1 % injection 0.1-0.3 mL 0.1-0.3 mL Intradermal Once And lidocaine PF (XYLOCAINE) 1 % injection 0.1-0.3 mL 0.1-0.3 mL Intradermal PRN midazolam (VERSED) injection 1-2 mg 1-2 mg Intravenous Q5MIN PRN ondansetron (ZOFRAN) injection 4 mg 4 mg Intravenous Q4H PRN Labs: No results found for: SODIUM, K, CHLORIDE, CO2, BUN, CREATININE, GLUCOSE No results found for: WBC, HGB, HCT, PLTS No results found for: INR Blood Bank: No results found for: ABO, ABSCR EKG: No results found for this or any previous visit. Physical Exam: BP 136/76 (BP Cuff Size: Regular - Long) Pulse 62 Temp 36.2 ??C (97.2 ??F) (Temporal Artery) Resp 18 Ht 5' 10 Wt 110.2 kg (243 lb) SpO2 95% BMI 34.87 kg/m?? Assessment/Plan: Review of Systems Patient does not have GERD. Patient is not a current smoker. Patient is a former smoker. The patient denies alcohol use. Patient denies any recent URI. History of PONV: No. History of motion sickness: No. Patient denies any personal or family history of anesthesia complications. NPO Status: Acceptable. Exam Mental Status: Alert and oriented. Mallampati score: II (Two). Mouth opening: Normal Thyromental Distance: > 3 finger breadths and Normal Neck Extension: Full Neck Circumference > 40 cm?: No Airway assessment: Unknown. Current airway assessment:Normal Cardiac Exam: Regular rate and rhythm. Respiratory Exam: Breath sounds clear to auscultation Assessment ASA Status: 2 . Plan Anesthesia type: Spinal Induction: Maintenance: Postoperative pain management: Plan for postoperative opioid use PONV Risk Score Adult: 2 PONV Prophylaxis (planned): Ondansetron and Decadron Anesthetic plan, risks, benefits and alternatives discussed with the patient who agrees to the anesthesia treatment plan and patients' product sales representative who agrees to the anesthesia treatment plan. The patient and/or their product sales representative were notified about the potential risks of damage to the lips, teeth, dental devices, mouth and airway. H&P Reviewed and Patient examined, no change observed IV access Antibiotics per surgery Electronically signed by: Ar Enamorado MD 04/08/2025 7:22 AM documented in this encounter Plan of Treatment Upcoming Encounters Date Type Department Care Team (Late st Contact Info) Description 05/26/2025 10:20 AM CDT Appointment [facility] [place] [address] [place] [address] Lizzy Crews, PARamezC [address] [place] [address] documented as of this encounter Goals Goal [...] Procedure Name Priority Date/Time Associated Diagnosis Comments SPINAL BLOCK Routine 04/08/2025 9:42 AM CDT documented in this encounter Results * SPINAL BLOCK (04/08/2025 9:42 AM CDT) Narrative EXTERNAL RESULTS - 04/08/2025 9:42 AM CDT Wanda Kidd APRN, DESCRIPTIVE CATALOG LIBRARIAN 04/08/2025 9:44 AM Spinal Block Performed by: Ar Enamorado MD Authorizing/Supervising provider: Ar Enamorado MD Block Start: 04/08/2025 9:29 AM Block end: 04/08/2025 9:40 AM Performed by: Anesthesiologist Patient Location OR Checklist: risks and benefits discussed, IV checked, anesthesia consent, monitors and equipment checked, patient identified and pre-op evaluation Patient Position: sitting Sterile prep: Betadine, Sterile gloves, Mask and Hat Insertion site: L4-5 Approach: midline Needle type: Carolyn Needle gauge: 25 G Needle length: 5 in Introducer needle used Attempts: 3 (Deeper than expected, bone at L2/3 and L3/4) Redirects: 3 Monitoring: painter and body mechanic apprentice and continuous pulse ox Paresthesias: No Events: None Complications: none Pt tolerated procedure well Notes: Signed by MD Kelsea Medications from procedure kit: lidocaine PF 1 % injection - Subcutaneous 5 mL - 04/08/2025 9:32:00 AM BUPivacaine-dextrose 0.75-8.25% intrathecal injection - Intrathecal 1.6 mL - 04/08/2025 9:40:00 AM Ar Theodore MD ANESTHESIA/AR Final Resu lt EXTERNAL RESULTS documented in this encounter Visit Diagnoses Not on filedocumented in this encounter Administered Medications Inactive Administered Medications - up to 3 most recent administrations Medication Order MAR Action Action Date Dose Rate Site BUPivacaine in dextrose 0.75-8.25 % injection Intrathecal, Starting on Alejandra 04/08/25 at 0940 Given 04/08/2025 9:40 AM CDT 1.6 mL ceFAZolin (ANCEF) 2 g in sterile water for injection 20 mL premade IV syringe 2 g, Intravenous, Administer over 5 Minutes, ONCE, On Alejandra 04/08/25 at 0715, For 1 dose, Infuse within 60 minutes prior to incision; Re-dose 1 gram IV every 4 hours after initial dose until incision closed. Administer IV push over 5 minutes., Pre-opIndications:Surgical Prophylaxis Given 04/08/2025 9:50 AM CDT 2 g dexAMETHasone (DECADRON) injection Intravenous, Starting on Alejandra 04/08/25 at 0950, Until Alejandra 04/08/25 at 1130 Given 04/08/2025 9:50 AM CDT 8 mg ePHEDrine 10 mg/mL injection Intravenous, Starting on Alejandra 04/08/25 at 0955, Until Alejandra 04/08/25 at 1130 Given 04/08/2025 10:17 AM CDT 10 mg Given 04/08/2025 10:08 AM CDT 5 mg Given 04/08/2025 9:55 AM CDT 10 mg fentaNYL (SUBLIMAZE) injection Intravenous, Starting on Alejandra 04/08/25 at 0927, Until Alejandra 04/08/25 at 1130 Given 04/08/2025 9:27 AM CDT 50 mcg lidocaine PF (XYLOCAINE) 1 % injection Subcutaneous, Starting on Alejandra 04/08/25 at 0932 Given 04/08/2025 9:32 AM CDT 5 mL lidocaine PF (XYLOCAINE) 1 % injection Intravenous, Starting on Alejandra 04/08/25 at 0945 Given 04/08/2025 9:45 AM CDT 50 mg phenylephrine-NaCl 0.9% (ANSHUL-SYNEPHRINE) injection Intravenous, Starting on Alejandra 04/08/25 at 1017, Until Alejandra 04/08/25 at 1130 Rate/Dose Change 04/08/2025 10:26 AM CDT 0.5 mcg/kg/min 21.9 mL/hr Started 04/08/2025 10:18 AM CDT 0.3 mcg/kg/min 13.14 mL /hr Given 04/08/2025 10:17 AM CDT 100 mcg propofol (DIPRIVAN) 10 mg/mL injection Intravenous, Starting on Alejandra 04/08/25 at 0945, Until Alejandra 04/08/25 at 1130 Rate/Dose Change 04/08/2025 10:00 AM CDT 60 mcg/kg/min 26.28 mL/hr Started 04/08/2025 9:45 AM CDT 75 mcg/kg/min 32.85 mL/h r tranexamic acid (CYKLOKAPRON) 1000 mg in sodium chloride 0.7% (10 mg/mL) 100 mL IVPB premix Intravenous, Starting on Alejandra 04/08/25 at 1116, Until Alejandra 04/08/25 at 1130 Given 04/08/2025 11:16 AM CDT 1,000 mg Given 04/08/2025 10:15 AM CDT 1,000 mg documented in this encounter Additional Health Concerns [...] documented as of this encounter Care Teams Alarm Technician Relationship Specialty Start Date End Date Romulo Zimmer MD [facility] [place] [address] PCP - General Family Practice 04/15/24 documented as of this encounter
--- OUTSIDE RECORDS SUMMARY | 2025-04-23 10:10 | XMS_ITS | Encounter Summary ---
Author Organization [employer] Address [address], [place] [address] Care Team Providers Care Poultry Inspector Name Role Phone Romulo Zimmer MD Primary Care Provider [phone] Reason for Visit * Procedure/Equipment (Routine) - Incomplete Specialty Diagnoses / Procedures Referred By Contac t Referred To Contact Diagnoses S/P total left hip arthroplasty Procedures XR Pelvis W Lt Lateral Hip Brian Pan MD [address] [place] [address] Phone: tel: fax: Referral ID Status Reason Start Date Expiration Date V isits Requested Visits Authorized [id number] Incomplete 04/23/2025 07/23/2026 1 1 Encounter Details Date Type Department Care Team (Late st Contact Info) Description 04/23/2025 10:10 AM CDT [facility] [address] Radiology X-ray [address] [place] [address] Brian Pan MD [address] [place], [place] [id number] S/P total left hip arthroplasty Social History Tobacco Use Types Packs/Day Years Used Date Smoking Tobacco: Former Smokeless Tobacco: Never Comments:Quit smoking: Alcohol Use Standard Drinks/Week Comments Never 0 (1 standard drink = 0.6 oz pur e alcohol) [facility] Utilities Answer Date Recorded In the past 12 months has th e electric, gas, oil, or water company [...] any time in the past 12 m [facility], were you homeless or living in a nursing home (including now)? No 04/08/2025 Sex and Gender Information Value Date Recorded Sex Assigned at Not on file Legal Sex Male 11:13 PM CDT Gender Identity Not on file Sexual Orientation Not on file documented as of this encounter Plan of Treatment Upcoming Encounters Date Type Department Care Team (Late st Contact Info) Description 05/26/2025 10:20 AM CDT Appointment [facility]opedic [facility] [address] [place] [address] Lizzy Crews, PARamezC [address] [place] [address] documented as of this encounter Goals Goal [...] Procedure Name Priority Date/Time Associated Diagnosis Comments XR PELVIS W LT LATERAL HIP Routine 04/23/2025 10:11 AM CDT S/P total left hip arthroplasty documented in this encounter Results * XR Pelvis W Lt Lateral Hip (04/23/2025 10:11 AM CDT) Anatomical Region Laterality Modality Pelvis, Hip Computed Radiogr aphy Narrative 04/23/2025 1:42 PM CDT EXAM: XR PELVIS W LT LATERAL HIP INDICATION: S/P DEEJAY COMPARISON: Pelvis and left hip two views, 04/09/2025. FINDINGS: Pelvis and left hip three views. Postoperative changes from left total hip arthroplasty. On the frog-leg lateral radiograph, there is apparent displacement of the acetabular cup liner. Remainder of the hardware is intact. Skin contreras in place. Mild degenerative changes in the right hip with minimal acetabular osteophyte formation. Penile prosthesis. Mild degenerative changes in the SI joints. Degenerative changes in the lower lumbar spine. Signed by: Brian Brice 04/23/2025 1:42 PM Procedure Note Brian Brice MD - 04/23/2025 EXAM: XR PELVIS W LT LATERAL HIP INDICATION: S/P DEEJAY COMPARISON: Pelvis and left hip two views, 04/09/2025. FINDINGS: Pelvis and left hip three views. Postoperative changes from left totalhip arthroplasty. On the frog-leg lateral radiograph, there is apparentdisplacement of the acetabular cup liner. Remainder of the hardware isintact. Skin contreras in place. Mild degenerative changes in the righthip with minimal acetabular osteophyte formation. Penile prosthesis.Mild degenerative changes in the SI joints. Degenerative changes in thelower lumbar spine. Signed by: Brian Brice 04/23/2025 1:42 PM us Brian Pan MD RAD GD Final Resu lt documented in this encounter Visit Diagnoses Diagnosis S/P total left hip arthroplasty documented in this encounter Additional Health Concerns [...] documented as of this encounter Care Teams Poultry Inspector Relationship Specialty Start Date End Date Romulo Zimmer MD [address] [place] [address] PCP - General Family Practice 04/15/24 documented as of this encounter
--- OUTSIDE RECORDS SUMMARY | 2025-04-23 10:15 | XMS_ITS | Encounter Summary ---
Author Organization [employer] Address [address], [place] [address] Care Team Providers Care Inspector Final Assembly Electrical Name Role Phone Romulo Zimmer MD Primary Care Provider [phone] Reason for Referral * Procedure/Equipment (Routine) - Incomplete Specialty Diagnoses / Procedures Referred By Rubén fofana Referred To Contact Diagnoses S/P total left hip arthroplasty Procedures XR Pelvis W Lt Lateral Hip Brian Pan MD [address] [place] [address] Phone: tel: fax: Referral ID Status Reason Start Date Expiration Date V isits Requested Visits Authorized [id number] Incomplete 04/23/2025 07/23/2026 1 1 Reason for Visit * Reason Comments Hip Problem L DEEJAY Encounter Details Date Type Department Care Team (Latest Contact Info) Description 04/23/2025 10:15 AM CDT Office Visit [facility] [place] [facility] [address] [place] [address] Chino Borges, OA S/P total left hip arthroplasty (Primary Dx); Postop check Social History Tobacco Use Types Packs/Day Years Used Date Smoking Tobacco: Former Smokeless Tobacco: Never Comments:Quit smoking: Alcohol Use Standard Drinks/Week Comments Never 0 (1 standard drink = 0.6 oz pur e alcohol) [facility] Utilities Answer Date Recorded In the past [...] any time in the past 12 m [facility], were you homeless or living in a custodial (including now)? No 04/08/2025 Sex and Gender Information Value Date Recorded Sex Assigned at Not on file Legal Sex Male 11:13 PM CDT Gender Identity Not on file Sexual Orientation Not on file documented as of this encounter Progress Notes * Chino Borges OA - 04/23/2025 10:15 AM CDT DOS: 04/08/25 Procedure: Left anterior total hip arthroplasty Surgeon: Dr. Brian Pan Interim History: Overall doing well. No acute issues. Physical Exam: David is awake, alert and oriented X3 in no apparent distress. Appears well nourished and well-developed. Breathing is nonlabored. Presents to today's appointment FWB using no assistive devices for ambulation. Accompanied to this appointment by his spouse. David complains of mild pain well-controlled without medications. Dilaudid was discontinued on POD 3 and ASA 162 mg is being taken for DVT prophlaxis. Mepilex dressing was removed and a focused exam of the left hip demonstrates a well-healing incision. No signs of DVT or infection. CMS is WNL. Calf is supple and non-tender. [place] were removed andSteristrips were placed. Radiographic Studies: Obtained today to be reviewed by Dr. Pan when he is next in clinic. Assessment: Satisfactory postoperative course 15 days status post left anterior total hip arthroplasty. ICD-10-CM 1. S/P total left hip arthroplasty Z96.642 XR Pelvis W Lt Lateral Hip 2. Postop check Z09 Plan: - Increase WB and activity as tolerated. - Continue with PT HEP. - Continue taking ASA 162 mg for DVT prophylaxis for 42 days postop. - Follow-up with Lizzy Crews PA-C, on 05/26/25. X-Rays Next Visit: None Patient verbalized understanding of above mentioned plan and is amenable. All questions were answered in detail. Patient verbalized understanding that they should return sooner or call if there are any questions or concerns. documented in this encounter Plan of Treatment Upcoming Encounters Date Type Department Care Team (Late st Contact Info) Description 05/26/2025 10:20 AM CDT Appointment [facility] Orthopedic [facility] [address] [place] [address] Lizzy Crews, [place] [address] [place] [address] documented as of this encounter Goals Goal Patient Goal Type Associated Problems Recent Progress Patient-Stated? Author GENERAL OUTCOMES KNEE REPLACEMENT - RIGHT Care Plan ET PROE GENERAL OUTCOMES KNEE REPLACEMENT - RIGHT No TorresCarlos Right Knee Replacement Care Plan ET PROE [...] Carlos Macdonald documented as of this encounter Results * XR Pelvis W [...] Visit Diagnoses Diagnosis S/P total left hip arthroplasty- Primary Postop check Follow-up examination, following unspecified surgery S/P total left hip arthroplasty documented in [...] documented as of this encounter Care Teams Inspector Final Assembly Electrical Relationship Specialty Start Date End Date Romulo Zimmer MD [address] [place] [address] PCP - General Family Practice 04/15/24 documented as of this encounter
[2025-05-09] VITALS (23 sets, daily range): BP systolic 108–179; BP diastolic 83–100; PULSE 66–78; RESP 16–32; TEMP 36.7; O2SAT 92–97; BMI 35.9
--- OUTSIDE RECORDS SUMMARY | 2025-05-09 15:57 | XMS_ITS | Clinical Summary ---
[facility] Address [address] [place] [address] Care Team Providers Care Harvest Worker Name Role Phone Romulo Zimmer MD Primary Care Provider [phone] Source Comments You are receiving this document as you are listed as the primary care provider,follow-up provider, or the patient has been referred to you for consultation.This is in compliance with the Medicare and[facility] EHR Incentive Program,which states Providers who transition their patient to another setting of careor provider of care or refers their patient to another provider of care shouldprovide summary care record for each transition of care or referral. [facility] Allergies No known active allergies Medications atorvastatin (LIPITOR) 40 MG tablet Take 1 Tablet (40 mg) by mouth daily. Active lisinopril-hy droCHLOROthia zide (PRINZIDE) 20-12.5 MG tablet Take 1 Tablet by mouth daily. 12/07/19 21 Active multivitamin (THERAGRAN) tablet Take 1 Tablet by mouth daily. Active Meloxicam (MOBIC) 15 MG tablet Take 1 Tablet (15 mg) by mouth daily. 03/04/20 25 Active amLODIPine (NORVASC) 5 MG tabletIndicat ions:Hyperten perla Take 1 Tablet (5 mg) by mouth daily. Per patient report Indications: High Blood Pressure 04/09/20 25 Active aspirin EC 81 MG enteric coated tabletIndicat ions:thrombos is prevention following orthopedic surgery Take 2 Tablets (162 mg) by mouth daily for 42 days. If on previous aspirin, resume previous aspirin dosing after 42 days. Indications: thrombosis prevention following orthopedic surgery 84 Tablet 5 1:09 PM CDT 04/08/20 025 Active amoxicillin (AKA AMOXIL) 500 MG tablet Take all 4 tablets one hour before dental work. 4 Tablet 3 02/25/20 025 Discontinued acetaminophen (TYLENOL) 500 MG tabletIndicat ions:Pain Take 2 Tablets (1,000 mg) by mouth three times a day. 24 hour limit of acetaminophen (TYLENOL) is 4000mg. Indications: Pain 100 Tablet 5 1:09 PM CDT 04/08/20 025 Discontinued senna (SENOKOT) 8.6 MG tabletIndicat ions:Constipa tion Take 2 Tablets by mouth daily at bedtime. Take while on narcotics. Hold for loose stools. Indications: Constipation 60 Tablet 5 1:09 PM CDT 04/08/20 025 Discontinued HYDROmorphone (DILAUDID) 2 MG tabletIndicat ions:Moderate to Moderately Severe pain Take 1-2 Tablets (2-4 mg) by mouth every 4 hours as needed for Pain. Take 1 tablet for pain rated at 4-7. Take 2 tablet for pain rated 8-10. Indications: Moderate to Moderately Severe pain 25 Tablet 5 1:09 PM CDT 04/08/20 025 Discontinued polyethylene glycol 3350 (GLYCOLAX) 17 GM/SCOOP powderIndicat ions:Constipa tion Take 17 g by mouth daily as needed (constipation). Fill to indicated line in cap (17 g). Mix in 4-8 ounces of a beverage and drink once daily as needed for constipation. Indications: Constipation 238 g 5 1:09 PM CDT 04/08/20 025 Discontinued Active Problems Problem Noted Date Diagnosed Date History of total bilateral knee replacement 12/2024 Overview (04/08/2025): L TKA 3/8/21, R TKA 09/14/24. Both by Dr. Campos with [facility]. Class 1 obesity with serious comorbidity and body mass index (BMI) of 34.0 to 34.9 in adult 04/08/2025 Status post total replacement of left hip 2024 Overview (04/08/2025): Anterior L DEEJAY for femoral head subchondral fractures as well as to acetabulum. By Dr. Pan at [facility]. 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 Overview (04/08/2025): Colonoscopy 06/2023 4-TA, repeat in 5 years Essential hypertension 01/04/2007 Pure hypercholesterolemia 01/04/2007 IFG (impaired fasting glucose) Dysthymia Encounters Date Type Department Care Team Description 04/23/2025 10:15 AM CDT Office Visit [facility] [place] [address] [place] [address] Chino Borges, OA S/P total left hip arthroplasty (Primary Dx); Postop check 04/23/2025 10:10 AM CDT Ancillary Procedure [facility] Radiology X-ray [address] [place] [address] Brian Pan MD S/P total left hip arthroplasty 04/12/2025 Telephone [facility] [place] [address] [place] [address] Brian Pan MD Post-Op Follow Up Call 04/08/2025 9:20 AM CDT Anesthesia Event [facility] [address] [place] [address] Kan Guzman MD Violante, Edward V, MD 04/08/2025 8:30 AM CDT - 04/08/2025 11:05 AM CDT Surgery [facility] [address] [place] [address] Brian Pan MD ANTERIOR TOTAL HIP JOINT REPLACEMENT 04/08/2025 6:35 AM CDT - 04/09/2025 2:12 PM CDT Hospital Encounter [facility] [address] [address] Brian Pan MD Pain (Primary Dx) Discharge Disposition: Home 04/08/2025 Orders Only HIM DEPARTMENT Provider, MD Mala 04/07/2025 Telephone [facility] at [address] [address] Brian Pan MD Paperwork 04/05/2025 Notes/Orders [facility] Orthopedic [address] [address] Brian Pan MD Hip pain, unspecified laterality (Primary Dx) 03/30/2025 2:00 PM CDT Phone Visit [facility] at [address] [address] Nurse, [id number] Ortho Encounter for education (Primary Dx) 03/29/2025 Telephone [facility] [address] [address] Brian Pan MD Surgery Questions 03/26/2025 10:00 AM CDT Nursing Visit [facility] Orthopedic [address] [address] Nurse, [facility] Screening examination for infectious disease 03/23/2025 Notes/Orders [facility] Orthopedic [address] [address] Luli Marquez Screening examination for infectious disease (Primary Dx) 03/22/2025 Notes/Orders [facility] at [address] [address] Lizzy Crews PA-C Closed fracture of head of left femur, initial encounter (HRC) (Primary Dx) 03/22/[address] [facility] Orthopedic [address] [address] Brian Pan MD Surgery 03/17/2025 9:00 AM CDT Office Visit [facility] Orthopedic [address] [address] Brian Pan MD Pain of left hip (Primary Dx) 03/11/2025 3:10 PM CDT Office Visit [facility] Orthopedic Urgent Care [address] [address] Cyril Arreguin MD Subchondral insufficiency fracture of condyle of left femur, initial encounter (HRC) (Primary Dx); Left hip pain 03/11/2025 12:20 PM CDT Ancillary Procedure [facility] [address] [address] Aniya Cardona, DO Left hip pain 03/07/2025 4:50 PM CDT Office Visit [facility] [address] [address] Aniya Cardona, DO Left hip pain (Primary Dx) 03/05/2025 Ancillary Procedure Radiology [facility] [address] [place] [address] Provider, Foreign Images 02/24/[address] [address] Darius Campos MD Medication Questions (Pre-med) from Last 3 Months Family History Medical History Relation Name Comments Asthma Father Abdominal Aortic Aneurysm Brother Relation Name Status Comments Father Brother Social History Tobacco Use Types Packs/Day Years Used Date Smoking Tobacco: Former Smokeless Tobacco: Never Comments:Quit smoking: Alcohol Use Standard Drinks/Week Comments Never 0 (1 standard drink = 0.6 oz pur e alcohol) [facility] Utilities Answer Date Recorded In the past 12 months has [employer], gas, oil, or water company threatened to [...] any time in the past 12 m [facility], were you homeless or living in a jail (including now)? No 04/08/2025 Sex and Gender Information Value Date Recorded Sex Assigned at Not on file Legal Sex Male 11:13 PM CDT Gender Identity Not on file Sexual Orientation Not on file Last Filed Vital Signs Vital Sign Reading [...] Mass Index 34.87 04/08/2025 7:12 AM CDT Plan of Treatment Upcoming Encounters Date Type Department Care Team (Late st Contact Info) Description 05/26/2025 10:20 AM CDT Appointment [facility] [place] [address] [place] [phone] Lizzy Crews, PA-C [address] [place], [place] [phone] Health Maintenance Due Date Last Done Comments Hep C Screening (Preventive Services) 1950 Medicare Annual Wellness Visit 1950 RSV Vaccine (1 - 1-dose 75+ series) 01/10/2023 COVID-19 Vaccine ( season) 2025 07/05/2024, 01/08/2024, 07/10/2023, Additional history exists Influenza Vaccine (#1) 2025 4, 07/10/2023, 07/14/2022, Additional history exists Prediabetes: HGBA1C 04/08/2026 04/08/2025, DTaP/Tdap/Td Vaccine (3 - Tdap) 03/11/2034 03/11/2024, 12/31/2013 Pneumococcal Vaccine 50+ Yrs Completed 10/31/2016, 12/31/2013 Zoster/Shingles Vaccine Completed 03/08/2019, 12/07 HepA Vaccine Aged Out No longer eligi ble based on patient's age to complete this topic HepB Vaccine Aged Out No longer eligi ble based on patient's age to complete this topic Hib Vaccine Aged Out No longer eligi ble based on patient's age to complete this topic MCV4 Vaccine Aged Out No longer eligi ble based on patient's age to complete this topic Meningococcal B Vaccine Aged Out No l onger eligible based on patient's age to complete this topic Goals Goal Patient Goal Type Associated Problems [...] LEFT HIP REPLACEMENT EDUCATION No [employer] Implanted Type Area Heavy Equipment Engine Mechanic Device Identifier Shelf Expiration Date Model / Serial / Lot Manuelito Bone Biomet R 1x40 - [id number] Implanted:Qty: 1 on 12/12/2020 by Darius Campos MD at [facility] DEVICE Left: [employer] 12/04/2024 [id number] / 0 / [id number] Comp Fem Ps Ccr Ps Std Sz11 Lt - [id number] Implanted:Qty: 1 on 12/12/2020 by Darius Campos MD at [facility] DEVICE Left: [employer] 09/05/2029 [id number] / 0 / [id number] Patella All Poly Ply 38mm - [id number] Implanted:Qty: 1 on 12/12/2020 by Darius Campos MD at [facility] DEVICE Left: [employer] 06/06/2028 [id number] / 0 / [id number] Stem Tib 5deg Szh Lt - [id number] Implanted:Qty: 1 on 12/12/2020 by Darius Campos MD at [facility] DEVICE Left: [employer] 07/06/2030 [id number] / 0 / [id number] Asf Ps Ve 10mm 1012 Gh Lt - [id number] Implanted:Qty: 1 on 12/12/2020 by Darius Campos MD at [facility] DEVICE Left: [employer] 04/18/2025 [id number] / 0 / [id number] Psn Asf Ps Ply 10 Rt - [id number] Implanted:Qty: 1 on 09/14/2024 by Darius Campos MD at [facility] DEVICE Right: [employer] 10/10/2028 [id number] / 0 / [id number] Manuelito Bone [employer]omet R 1x40 - [id number] Implanted:Qty: 2 on 09/14/2024 by Darius Campos MD at [facility] DEVICE Right: [employer] 11/06/2026 [id number] / 0 / [id number] Patella All Poly Ply 38mm - [id number] Implanted:Qty: 1 on 09/14/2024 [facility] Right: [employer] 08/04/2029 [id number] / 0 / [id number] Comp Fem Ps Ccr Ps Std Sz10 Rt - [id number] Implanted:Qty: 1 on 09/14/2024 by [facility] Right: [employer] 06/01/2034 [id number] / 0 / [id number] Stem Tib 5deg Szj Rt - [id number] Implanted:Qty: 1 on 09/14/2024 by Darius Campos MD at [facility] DEVICE Right: [employer] 02/03/2029 [id number] / 0 / [id number] Shell Acet G7 Ltd 56f - [id number] Implanted:Qty: 1 on 04/08/2025 by Brian Pan MD at [facility] DEVICE Left: HIP [employer] - Orthopedics 12/25/2034 [id number] / / [id number] Scr Sftp 6.5x25 - [id number] Implanted:Qty: 1 on 04/08/2025 by Brian Pan MD at [facility] DEVICE Left: HIP [employer] 12/07/2034 [id number] / / [id number] Liner G7 Neut Lngvty 36mm F - [id number] Implanted:Qty: 1 on 04/08/2025 by Brian Pan MD at [facility] DEVICE Left: HIP [employer] - Orthopedics 12/04/2029 [id number] / / [id number] Hd Fem Cer 09/19 36mm +3.5 - [id number] Implanted:Qty: 1 on 04/08/2025 by Brian Pan MD at [facility] DEVICE Left: HIP [employer] 01/20/2035 [id number] / / [id number] Z1 Hip System, Size 5, Collared Cementless High Offset Femoral Stem Implanted:Qty: 1 on 04/08/2025 by Brian Pan MD at [facility] Left: HIP [employer] - Orthopedics 11/30/2029 [id number] / / [id number] Description:Z1 HIP SYSTEM, S IZE 5, COLLARED CEMENTLESS HIGH OFFSET FEMORAL STEM Procedures Procedure Name Priority Date/Time Associated Diagnosis Comments XR PELVIS W LT LATERAL HIP Routine 04/23/2025 10:11 AM CDT S/P total left hip arthroplasty GLUCOSE, WHOLE BLOOD POCT Routine 04/09/2025 11:53 AM CDT COMPLETE BLOOD COUNT-W/DIFF Routine 04/09/2025 10:21 AM CDT CBC AND DIFFERENTIAL PANEL Routine 04/09/2025 10:21 AM CDT PHOSPHORUS Routine 04/09/2025 10:21 AM CDT MAGNESIUM Routine 04/09/2025 10:21 AM CDT BASIC METABOLIC PANEL Routine 04/09/2025 10:21 AM CDT XR PELVIS W LT LATERAL HIP Routine 04/09/2025 9:25 AM CDT GLUCOSE, WHOLE BLOOD POCT Routine 04/09/2025 7:25 AM CDT GLUCOSE, WHOLE BLOOD POCT Routine 04/08/2025 9:03 PM CDT GLUCOSE, WHOLE BLOOD POCT Routine 04/08/2025 4:56 PM CDT FL C ARM Routine 04/08/2025 11:07 AM CDT SPINAL BLOCK Routine 04/08/2025 9:42 AM CDT ANTERIOR TOTAL HIP JOINT REPLACEMENT 04/08/2025 8:53 AM CDT Closed fracture of head of left femur, initial encounter (HRC) ECG 12 LEAD INPATIENT Routine 04/08/2025 7:42 AM CDT HGB A1C STAT 04/08/2025 7:14 AM CDT HEMOGLOBIN, BLOOD STAT 04/08/2025 7:1 4 AM CDT BB DRAW AND HOLD STAT 04/08/2025 7:14 AM CDT POTASSIUM STAT 04/08/2025 7:14 AM CDT EKG 04/08/2025 MRSA/MSSA PRE-OP CULTURE Routine 03/26/2025 9:15 AM CDT Screening examination for infectious disease MR HIP LT WO IV CONT Routine 03/11/2025 12:52 PM CDT Left hip pain FOREIGN IMAGE(S) XR PELVIS AND HIP Routine 03/05/2025 12:00 AM CDT from Last 3 Months Results * XR Pelvis W Lt Lateral Hip (04/23/2025 10:11 AM CDT) Only the most recent of2 resultswithin the time period is included. Anatomical Region Laterality Modality Pelvis, Hip Computed [...] Signed by: Brian Brice 04/23/2025 1:42 PM Brian Pan MD RAD GD Final Resu lt * Glucose, Whole Blood POCT (04/09/2025 11:53 AM CDT) Only the most recent of4 resultswithin the time period is included. Pathologist [facility] Glucose, Whole Blood 131 70 - 180 mg/dL 04/09/2025 11:55 AM CDT [facility] Performing Location [place] OB 04/09/2025 11:55 AM CDT [facility] Blood 04/09/2025 11:5 3 AM CDT 04/09/2025 11:55 AM CDT us Brian Pan MD LAB_1 Final Resu lt [facility] [address] [place], [place] [address] * (ABNORMAL) Complete Blood Count-W/Diff (04/09/2025 10:21 AM CDT) Pathologist [facility] WBC 10.2 3.5 - 10.5 x10(9)/L 04/09/2025 10:28 AM CDT [facility] RBC 4.22(L) 4.32 - 5.72 x10(12)/L 04/09/2025 10:28 AM CDT [facility] Hemoglobin 13.6 13.5 - 17.5 g/dL 04/09/2025 10:28 AM CDT [facility] HCT 39.4 38.8 - 50.0 % 04/09/2025 10:28 AM CDT [facility] MCV 93.4 80.0 - 100.0 fL 04/09/2025 10:28 AM CDT [facility] MCH 32.2 27.6 - 33.3 pg 04/09/2025 10:28 AM CDT [facility] MCHC 34.5 31.5 - 35.2 g/dL 04/09/2025 10:28 AM CDT [facility] RDW 13.3 11.9 - 15.5 % 04/09/2025 10:28 AM CDT [facility] Platelets 153 150 - 450 x10(9)/L 04/09/2025 10:28 AM CDT [facility] Automated NRBC 0 <=0 /100 WBC 04/09/2025 10:28 AM CDT [facility] Neutrophil Absolute 8.4(H) 1.7 - 7.0 10(9)/L 04/09/2025 10:28 AM CDT [facility] Lymphocyte Absolute 0.5(L) 1.0 - 4.8 10(9)/L 04/09/2025 10:28 AM CDT [facility] Monocyte Absolute 1.2(H) 0.2 - 0.9 10(9)/L 04/09/2025 10:28 AM CDT [facility] Eosinophil Absolute 0.0 0.0 - 0.5 10(9)/L 04/09/2025 10:28 AM CDT [facility] Basophil Absolute 0.0 0.0 - 0.3 10(9)/L 04/09/2025 10:28 AM CDT [facility] Immature Granulocyte % 0.3 0.0 - 0.5 % 04/09/2025 10:28 AM CDT [facility] Blood Venipuncture / Unknown 04/09/2025 10:21 AM CDT 04/09/2025 10:26 AM CDT Jeanie Barboza APRN, [employer] LAB_1 Final Result Performing Organization Address [facility] Co de Phone Number [facility] [address] * (ABNORMAL) Basic Metabolic Panel (IN AM) (04/09/2025 10:21 AM CDT) [facility] Sodium 137 136 - 145 mmol/L 04/09/2025 11:01 AM CDT [facility] Potassium 4.7 3.5 - 5.1 mmol/L 04/09/2025 11:01 AM CDT [facility] Chloride 102 98 - 109 mmol/L 04/09/2025 11:01 AM CDT [facility] CO2 27 20 - 29 mmol/L 04/09/2025 11:01 AM CDT [facility] Anion Gap 8 6 - 16 mmol/L 04/09/2025 11:01 AM CDT [facility] Calcium 8.9 8.4 - 10.4 mg/dL 04/09/2025 11:01 AM CDT [facility] BUN 29(H) 7 - 26 mg/dL 04/09/2025 11:01 AM CDT [facility] Creatinine 0.86 0.73 - 1.18 mg/dL 04/09/2025 11:01 AM CDT [facility] Glucose 129(H) 70 - 100 mg/dL 04/09/2025 11:01 AM CDT [facility] Comment:The given reference range is for the fasting state. Non-fasting reference range for glucose is 70 - 180 mg/dL. GFR, Estimated >60 >60 mL/min/1.7 3m2 04/09/2025 11:01 AM CDT [facility] Blood Venipuncture / Unknown 04/09/2025 10:21 AM CDT 04/09/2025 10:26 AM CDT Jeanie Barboza APRN, [employer] LAB_1 Final Result Performing Organization Address [facility] Co de Phone Number [facility] [address] [place] [address] * Magnesium (IN AM) (04/09/2025 10:21 AM CDT) Magnesium 1.6 1.6 - 2.6 mg/dL 04/09/2025 11:01 AM CDT [facility] Blood Venipuncture / Unknown 04/09/2025 10:21 AM CDT 04/09/2025 10:26 AM CDT Jeanie Barboza APRN, [employer] LAB_1 Final Result Performing Organization Address [facility]/ZIP Co de Phone Number [facility] [address] [place] [address] * Phosphorus (IN AM) (04/09/2025 10:21 AM CDT) Phosphorus 4.4 2.3 - 4.7 mg/dL 04/09/2025 11:01 AM CDT [facility] Blood Venipuncture / Unknown 04/09/2025 10:21 AM CDT 04/09/2025 10:26 AM CDT Jeanie Barboza APRN, [employer] LAB_1 Final Result Performing Organization Address [facility]/ZIP Co de Phone Number [facility] [address] [place] [address] * FL C Arm (04/08/2025 11:07 AM CDT) Anatomical Region Laterality Modality Radiographic Nadia ging Narrative 04/08/2025 11:08 AM CDT These images were obtained during a surgical procedure. us Brian Pan MD RAD FL Final Resu lt * SPINAL BLOCK (04/08/2025 9:42 AM CDT) Narrative EXTERNAL RESULTS - 04/08/2025 9:42 AM CDT Wanda Kidd, NETWORK ARCHITECT, CRAP SHOOTER 04/08/2025 9:44 AM Spinal Block Performed by: [...] at L2/3 and L3/4) Redirects: 3 Monitoring: front desk monitor and continuous pulse ox Paresthesias: No Events: None Complications: none Pt tolerated procedure well Notes: Signed by MD Kelsea Medications from procedure kit: lidocaine PF 1 % injection - Subcutaneous 5 mL - 04/08/2025 9:32:00 AM BUPivacaine-dextrose 0.75-8.25% intrathecal injection - Intrathecal 1.6 mL - 04/08/2025 9:40:00 AM Ar Theodore MD ANESTHESIA/AR Final Resu lt EXTERNAL RESULTS * ECG 12 Lead Inpatient (04/08/2025 7:42 AM CDT) [facility] Ventricular Rate 57 BPM MUSE GHP Atrial Rate 57 BPM MUSE GHP P-R Interval 192 ms MUSE GHP QRS Duration 160 ms MUSE GHP QT 450 ms MUSE GHP QTC 438 ms MUSE GHP P [place] 47 degrees MUSE GHP R [place] -49 degrees MUSE GHP T [place] 13 degrees MUSE GHP 04/08/2025 7:42 AM [...] previous ECGs available Confirmed by Camacho Penaloza ([id number]) on 04/08/2025 8:44:20 AM us Brian Pan MD PN ECG ORDERABLES Final Re sult Performing Organization Address [facility] Co de Phone Number [facility] [address] [place] [address] * Draw & Hold - Inpatient Only (04/08/2025 7:14 AM CDT) Pathologist [facility] BB DRAW AND HOLD Received in BB 04/08/2025 7:37 AM CDT [facility] Blood Venipuncture / Unknown 04/08/2025 7:14 AM CDT 04/08/2025 7:24 AM CDT us Brian Pan MD LAB_1 Final Resu lt Performing Organization Address [facility] de Phone Number [facility] [address] * Hemoglobin for all patients that have a Draw and Hold, Type and Screen, or Type and Cross ordered (04/08/2025 7:14 AM CDT) [facility] Hemoglobin 16.0 13.5 - 17.5 g/dL 04/08/2025 7:28 AM CDT [facility] Blood Venipuncture / Unknown 04/08/2025 7:14 AM CDT 04/08/2025 7:24 AM CDT us Brian Pan MD LAB_1 Final Resu lt Performing Organization Address [facility] de Phone Number [facility] [address] * (ABNORMAL) Hgb A1C (04/08/2025 7:14 AM CDT) [facility] Hemoglobin A1C 6.5(H) <=5.6 % 04/08/2025 12:16 PM CDT [facility] Estimated Average Glucose (Calc) 140 < 117 mg/dL 04/08/2025 12:16 PM CDT [facility] Comment:Estimated average gl ucose (eAG) converts A1c into glucose units (mg/dL) and estimates average glucose over the past approximately 3 months. The eAG reference interval (<117 mg/dL) corresponds to an A1c of <5.7%. Blood Venipuncture / Unknown 04/08/2025 7:14 AM CDT 04/08/2025 7:24 AM CDT Narrative [facility] - 04/08/2025 12:16 PM CDT For patients not previously diagnosed with diabetes: 5.7-6.4%: Increased risk for diabetes 6.5% and greater: Diagnostic for diabetes For patients diagnosed with diabetes: <8.0%: Goal of therapy for ages 18-75 Clinicians may recommend a higher or lower goal for specific individuals. us Brian Pan MD LAB_1 Final Resu lt Performing Organization Address [facility]/ZIP Co de Phone Number [facility] [address] * POTASSIUM (04/08/2025 7:14 AM CDT) [facility] Potassium 4.2 3.5 - 5.1 mmol/L 04/08/2025 7:44 AM CDT [facility] Blood Venipuncture / Unknown 04/08/2025 7:14 AM CDT 04/08/2025 7:24 AM CDT us Brian Pan MD LAB_1 Final Resu lt [facility] [address] * EKG (04/08/2025) us Interface Provider EKG Final Resu lt * MRSA/MSSA Pre-Op Culture (Nares, left & right) (03/26/2025 9:15 AM CDT) Staph aureus Culture (SACUL) No Staphylococcus aureus Isolated 03/27/2025 4:44 PM CDT [facility] Swab (Source Required) ENTIRE ANTERIOR NARIS / Unknown Non-blood Collection / Unknown 03/26/2025 9:15 AM CDT 03/26/2025 9:20 AM CDT us Brian Pan MD LAB_1 Final Resu lt [address] [address], [facility] * MR Hip Lt WO IV Cont (03/11/2025 12:52 PM CDT) Anatomical Region Laterality Modality Lower Extremity, Skeletal, Pelvis, Hip, Thigh, M SK Left Magnetic Resonance 03/11/2025 12:2 5 PM CDT Impressions 03/11/2025 1:15 PM CDT 1. Nondisplaced subchondral fractures of the left superior femoral head and adjoining superior acetabulum with associated marrow edema. 2. Diffuse with full-thickness loss of much of the left hip joint cartilage. Left hip joint effusion. 3. Full-thickness or essentially full-thickness nonretracted tear in the left gluteus minimus at its insertion. Partial tearing of the adjoining anterior aspect of the left gluteus medius. 4. Herniation of a portion of the urinary bladder into the right inguinal canal. Narrative 03/11/2025 1:15 PM CDT COMPARISON: Outside x-rays 03/05/2025. TECHNIQUE: Routine MRI of the left hip was performed without contrast. FINDINGS: MUSCLES AND TENDONS: Full thickness or essentially full thickness nonretracted tearing of the left gluteus minimus at its insertion. Partial tearing of the joining the anterior aspect of the gluteus medius insertion. Partial tearing/tendinopathy of the left greater than right hamstring insertions. MARROW AND SOFT TISSUES: Nondisplaced subchondral fracturing of the superolateral aspect of the left femoral head extending posterosuperiorly. Adjacent marrow edema. There is also nondisplaced airline fracture of the adjoining superior acetabulum including the subchondral region with surrounding marrow edema. There is no evidence of soft tissue mass. Herniation of portion of the urinary bladder into the right inguinal canal, with herniated portion measuring up to 7.6 cm in length. Penile prosthesis partially visualized. JOINT: Diffuse thinning with full-thickness loss of much of the left hip joint cartilage. Small to moderate left hip joint effusion with some synovitis. Small amount of fluid extending into the left iliopsoas bursa. There are no osteocartilaginous loose bodies within the joint. Exam type deformity of the femoral head neck junctions bilaterally. Ligamentum teres intact. ACETABULAR LABRUM: Nondisplaced degenerative type tearing of the anterosuperior and superior acetabular labrum. Procedure Note Pantera Luong MD - 03/11/2025 COMPARISON: Outside x-rays 03/05/2025. TECHNIQUE: Routine MRI of the left hip was performed without contrast. FINDINGS: MUSCLES AND TENDONS: Full thickness or essentially full thicknessnonretracted tearing of the left gluteus minimus at its insertion. Partialtearing of the joining the anterior aspect of the gluteus mediusinsertion. Partial tearing/tendinopathy of the left greater than righthamstring insertions. MARROW AND SOFT TISSUES: Nondisplaced subchondral fracturing of thesuperolateral aspect of the left femoral head extending posterosuperiorly.Adjacent marrow edema. There is also nondisplaced airline fracture of theadjoining superior acetabulum including the subchondral region withsurrounding marrow edema. There is no evidence of soft tissue mass.Herniation of portion of the urinary bladder into the right inguinalcanal, with herniated portion measuring up to 7.6 cm in length. Penileprosthesis partially visualized. JOINT: Diffuse thinning with full-thickness loss of much of the left hipjoint cartilage. Small to moderate left hip joint effusion with somesynovitis. Small amount of fluid extending into the left iliopsoas bursa.There are no osteocartilaginous loose bodies within the joint. Exam typedeformity of the femoral head neck junctions bilaterally. Ligamentum teresintact. ACETABULAR LABRUM: Nondisplaced degenerative type tearing of theanterosuperior and superior acetabular labrum. IMPRESSION 1. Nondisplaced subchondral fractures of the left superior femoral headand adjoining superior acetabulum with associated marrow edema. 2. Diffuse with full-thickness loss of much of the left hip jointcartilage. Left hip joint effusion. 3. Full-thickness or essentially full-thickness nonretracted tear in theleft gluteus minimus at its insertion. Partial tearing of the adjoininganterior aspect of the left gluteus medius. 4. Herniation of a portion of the urinary bladder into the right inguinalcanal. us Aniya Cardona DO RAD MRI Final Result from Last 3 Months Additional Health Concerns Active Problems Noted Date Diagnosed Date ET PROE SHELL PROBLEM TEMPLATE 07/17/2024 ET PROE GENERAL OUTCOMES KNEE REPLACEMENT - RIGH T 07/17/2024 ET PROE RIGHT KNEE 07/17/2024 ET PROE SHELL PROBLEM TEMPLATE 03/23/2025 ET PROE GENERAL OUTCOMES HIP REPLACEMENT - LEFT 03/23/2025 ET PROE HIP REPLACEMENT - LEFT 03/23/2025 ET PROE LEFT HIP REPLACEMENT EDUCATION Insurance MEDICARE SUPPLEMENT MEDICARE [facility] MEDICARE SUPPLEMENT MEDICARE Advance Directives Documents on File Type Date Recorded Patient Space Control Supervisor Expl anation HEALTHCARE DIRECTIVE 09/15/2019 [facility] ARE DIRECTIVE * Full Code (Latest Code Status on File) Date Activated Date Inactivated Comments 04/08/2025 1:00 PM 04/09/2025 4:12 PM * Full Code Date Activated Date Inactivated Comments 09/14/2024 10:17 AM 09/14/2024 1:46 PM * Full Code Date Activated Date Inactivated Comments 12/12/2020 2:51 PM 12/12/2020 8:21 PM Full code in e ffect for 30 days Care Teams Harvest Worker Relationship Specialty Start Date End Date Romulo Zimmer MD [address] [place] [address] PCP - General Family Practice 04/15/24
--- OUTSIDE RECORDS SUMMARY | 2025-05-09 15:58 | XMS_ITS | Encounter Summary ---
Author Organization [employer] Address [address], [place] [address] Care Team Providers Care Adjunct Professor Of Voice Name Role Phone Romulo Zimmer MD Primary Care Provider [phone] Reason for Visit * Reason Comments Surgery Encounter Details Date Type Department Care Team (Late st Contact Info) Description 03/22/2025 Telephone [facility] [place] [address] [place] [address] Brian Pan MD [address] [place], [place] [phone] Surgery Social History Tobacco Use Types Packs/Day Years [...] on file documented as of this encounter Nursing Notes * Luli Marquez - 03/24/2025 3:14 PM CDT Packet at hr director desk for cook pickled meat. Luli Marquez 3:14 PM 03/24/2025 * Luli Marquez - 03/23/2025 10:45 AM CDT Patient scheduled for surgery on 04/08. Will leave a surgery packet for him to cook pickled meat on 03/26 when he comes in for his MRSA swab to the [place] office. Luli Marquez 10:46 AM 03/23/2025 * Allison Trinh - 03/23/2025 9:53 AM CDT Patient's is calling to get this surgery scheduled. * Luli Marquez - 03/22/2025 9:32 AM CDT Patient decided to go forward with DEEJAY. Will you place orders, please?! Thank you! documented in this encounter Plan of Treatment Upcoming Encounters Date Type Department Care Team (Late st Contact Info) Description 05/26/2025 10:20 AM CDT Appointment [facility] [place] [address] [place], [place] [phone] Lizzy Crews, PA-C [address] [place] [address] documented as of this encounter Goals Goal Patient Goal Type Associated Problems Recent Progress Patient-Stated? Author GENERAL OUTCOMES KNEE REPLACEMENT - RIGHT Care Plan ET PROE GENERAL OUTCOMES KNEE REPLACEMENT - RIGHT No Carlos Macdonald Right Knee Replacement Care Plan ET PROE RIGHT KNEE No Carlos Macdonald documented as of this encounter Visit Diagnoses Not on filedocumented in this encounter Additional Health Concerns Active Problems Noted Date Diagnosed Date ET PROE SHELL PROBLEM TEMPLATE 07/17/2024 ET PROE GENERAL OUTCOMES KNEE REPLACEMENT - RIGH T 07/17/2024 ET PROE RIGHT KNEE 07/17/2024 documented as of this encounter Care Teams Adjunct Professor Of Voice Relationship Specialty Start Date End Date Romulo Zimmer MD [address] [place] [address] PCP - General Family Practice 04/15/24 documented as of this encounter
--- OUTSIDE RECORDS SUMMARY | 2025-05-09 15:58 | XMS_ITS | Encounter Summary ---
Author Organization [facility] Address [address], [place] [address] Care Team Providers Care Psychiatric Clinical Nurse Specialist Name Role Phone Romulo Zimmer MD Primary Care Provider [phone] Encounter Details Date Type Department Care Team (Late st Contact Info) Description 03/06/2016 Orders Only [facility] [place] [address] [place] [phone] Darius Campos MD [address] [place] [phone] Social History Tobacco Use Types Packs/Day Years Used Date Smoking Tobacco: Never Assessed Sex and Gender Information Value Date Recorded Sex Assigned at Not on file Legal Sex Male 11:13 PM CDT Gender Identity Not on file Sexual Orientation Not on file documented as of this encounter Plan of Treatment Upcoming Encounters Date Type Department Care Team (Late st Contact Info) Description 05/26/2025 10:20 AM CDT Appointment [facility] [place] [address] [place] [phone] Lizzy Crews [facility] [address] [place] [address] documented as of this encounter Visit Diagnoses Not on filedocumented in this encounter Care Teams Psychiatric Clinical Nurse Specialist Relationship Specialty Start Date End Date Romulo Zimmer MD [address] [place] [address] PCP - General Family Practice 04/15/24 documented as of this encounter
--- OUTSIDE RECORDS SUMMARY | 2025-05-09 15:58 | XMS_ITS | Encounter Summary ---
Author Organization [employer] Address [address], [place] [address] Care Team Providers Care Spinner Fixer Name Role Phone Romulo Zimmer MD Primary Care Provider [phone] Reason for Visit * Reason Comments Surgery Questions Encounter Details Date Type Department Care Team (Late st Contact Info) Description 03/29/2025 Telephone [facility] [place] [address] [place] [address] [phone] Brian Pan MD [address] [place] [phone] Surgery Questions Social History Tobacco Use Types Packs/Day Years [...] as of this encounter Nursing Notes * Aniya Pollock - 03/29/2025 11:18 AM CDT Left patient a VM explaining the the [facility] is for joint replacement patients from [place]. His surgery is at [facility] and programmed for a 23 hr stay. Aniya Pollock 03/29/2025, 11:19 AM * Nydia Lynch - 03/29/2025 9:37 AM CDT Pt. would like to know if there is any accommodation for his upcoming surgery with [employer]. Please call to advise. documented in this encounter Plan of Treatment Upcoming Encounters Date Type Department Care Team (Late st Contact Info) Description 05/26/2025 10:20 AM CDT Appointment [facility] Orth[facility] Center [place] [address] [place] [phone] Lizzy Crews, PARamezC [address] [place] [phone] documented as of this encounter Goals Goal [...] documented as of this encounter Care Teams Spinner Fixer Relationship Specialty Start Date End Date Romulo Zimmer MD [address] [place] [address] PCP - General Family Practice 04/15/24 documented as of this encounter
--- OUTSIDE RECORDS SUMMARY | 2025-05-09 15:58 | XMS_ITS | Encounter Summary ---
Author Organization [employer] Address [address] [address] Care Team Providers Care Molecular Technologist Name Role Phone Romulo Zimmer MD Primary Care Provider [phone] Reason for Referral * Therapies (Routine) - New Request Specialty Diagnoses / Procedures Referred By Contac t Referred To Contact Diagnoses Hip pain, unspecified laterality Brian Pan MD [address] [place] [address] Phone: tel: fax: POS NOT ON FILE Referral ID Status Reason Start Date Expiration Date V isits Requested Visits Authorized [id number] New Request 04/05/2025 04/05/2026 1 1 Scheduling Instructions This order is your clinician's recommendation for a service and is not an insurance referral which authorizes payment. The recommended service and/or location may not be covered by your insurance plan. Please call the number on your insurance card to find out your specific benefits and coverage for the recommended services and/or location. If you need help scheduling the recommended services, please ask your clinician's staff to assist you. Question Answer Appointment Urgency? Non-Urgent Requested Services Evaluate and treat Reason for Visit Post Op May use saline for irrigation or cleansing Yes dexamethasone use Yes May check glucose per protocol (see policy link below) or if patient has symptoms? Yes Comments Left anterior hip DEEJAY surgery is on 7/3 Encounter Details Date Type Department Care Team (Late st Contact Info) Description 04/05/2025 Notes/Orders [address] [address] Brian Pan MD [address] [place], [place] [phone] Hip pain, unspecified laterality (Primary Dx) Social History Tobacco Use Types [...] Info) Description 05/26/2025 10:20 AM CDT Appointment [address] [address] Lizzy Crews, PARamezC [address] [place], [place] [address] Scheduled Referrals Name Type Priority Associated Diagnoses Orde r Schedule Physical Therapy Referral Routine Hip pain, unspecified laterality Ordered: 04/05/2025 documented as of this encounter Goals Goal [...] as of this encounter Visit Diagnoses Diagnosis Hip pain, unspecified laterality- Primary documented in this encounter Additional Health [...] documented as of this encounter Care Teams Molecular Technologist Relationship Specialty Start Date End Date Romulo Zimmer MD [address] [place] [address] PCP - General Family Practice 04/15/24 documented as of this encounter
--- OUTSIDE RECORDS SUMMARY | 2025-05-09 15:58 | XMS_ITS | Clinical Summary ---
Author Organization [facility] Address [address] [place] [address] Care Team Providers Care Signs Sales Representative Name Role Phone Romulo Zimmer MD Primary Care Provider [phone] Allergies No known active allergies Medications ascorbic acid, vitamin C, (Vitamin C) 1,000 mg tablet Take 1,000 mg by mouth once daily. Active cholecalciferol (Vitamin D-3) 2,000 unit capsule Take 2,000 units by mouth once daily. Active VITAMIN E ACETATE ORAL Take 4,000 units by mouth once daily. Active ZINC CITRATE ORAL Take by mouth. Three times a week (unsure of dose) Active lisinopril-hydrochlorot hiazide 20-12.5 mg tablet (PRINZIDE)Indications:E ssential hypertension Take 1 Tablet by mouth once daily. 90 Tablet 04/21/20 25 Active atorvastatin (LIPITOR) 40 mg tabletIndications:Pure hypercholesterolemia Take 1 Tablet (40 mg) by mouth at bedtime. 90 Tablet 04/21/20 25 Active amLODIPine (NORVASC) 5 mg tabletIndications:Essen tial hypertension Take 1 Tablet (5 mg) by mouth once daily. 90 Tablet 04/21/20 25 Active cyclobenzaprine (FLEXERIL) 10 mg tabletIndications:Lumba r paraspinal muscle spasm Take 1 Tablet (10 mg) by mouth at bedtime for 14 days. 14 Tablet 02/27/20 24 025 Discontin ued(*Med complete/ Regimen complete/ Level of care change) atorvastatin (LIPITOR) 40 mg tabletIndications:Pure hypercholesterolemia Take 1 Tablet (40 mg) by mouth at bedtime. 90 Tablet 4 09/01/20 24 025 Discontin ued(Reord er (E-cancel not sent)) lisinopril-hydrochlorot hiazide 20-12.5 mg tablet (PRINZIDE)Indications:E ssential hypertension Take 1 Tablet by mouth once daily. 90 Tablet 4 09/01/20 24 025 Discontin ued(Reord er (E-cancel not sent)) amLODIPine 5 mg tabletIndications:Essen tial hypertension TAKE ONE TABLET BY MOUTH ONE TIME DAILY 90 Tablet 1 02/23/20 25 025 Discontin ued(Reord er (E-cancel not sent)) meloxicam 15 mg tabletIndications:Hip pain, left Take 1 Tablet (15 mg) by mouth once daily. 30 Tablet 1 03/04/20 25 025 Discontin ued(*Med complete/ Regimen complete/ Level of care change) FLUoxetine 20 mg capsuleIndications:Dyst hymia Take 1 Capsule (20 mg) by mouth once daily in the morning. 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 Overview (06/17/2023): Colonoscopy 06/2023 4-TA, repeat in 5 years Encounters Date Type Department Care Team Description 04/21/2025 9:15 AM CDT Office Visit [facility] [address] [place] [address] Romulo Zimmer MD Medicare ANNUAL (subsequent) Visit (75 Year Old Male ) 04/21/2025 Travel 04/17/2025 Travel 04/02/2025 Telephone [facility] [address] [place] [address] Romulo Zimmer MD Lab (Lab orders needed) 03/23/2025 2:45 PM CDT Office [facility] [address] [facility] [address] Romulo Zimmer MD Preoperative Exam (Left hip surgery 04/08/2025) 03/23/2025 Travel 03/23/2025 Telephone [facility] [address] [facility] [address] Romulo Zimmer MD Questions (recommendation) 03/07/2025 Nurse Triage [facility] Nurse Triage Solis Castro MD Hip Pain/problem 03/05/2025 3:10 PM CDT Office Visit [facility] [address] [facility] [address] Rmoulo Zimmer MD Psychiatric Problem (Concerns with depression - would like to discuss possible medications) 03/05/2025 Travel 03/04/2025 10:00 AM CDT Ancillary Procedure [facility] [address] [place] [address] 03/04/2025 9:10 AM CDT Office Visit [facility] [address] [place] [address] Solis Castro MD Musculoskeletal Problem (Left hip pain, fell yesterday outside) 03/04/2025 Travel 02/20/2025 Refill [facility] [address] [facility] [address] Romulo Zimmer MD Refill Request (Amlodipine) from Last 3 Months Immunizations Immunization Administration Dates Next Due COVID-19 VACCINE COMIRNATY (PFIZER-BIONTECH 30MCG/0.3ML) 12YO+ PFS 01/08/2024 COVID-19 vaccine (Pfizer-Bio NTech 30mcg/0.3mL) 12YO+ WOLFGANG-SUCROSE PFBRENDA 04/02/2022 COVID-19 vaccine (Pfizer-Bio NTech 30mcg/0.3mL) PFBRENDA 12/20/2020,11/29/2020 Influenza RIV4 (Age 18+ Year s) PRESERV FREE 07/07/2019 Influenza, High-dose Inactivated 023,09/10/2018,07/07/2018,09/13,09/05/2016,06/28/2016,08/24/2015 ,06/25/2014 Influenza, High-dose Quadriv alent Inactivated 07/10/2023,07/14/2022,07/20/2021,05/27 Influenza, IIV3 (Age >=3 years) 10/10/2013 Influenza, Inactivated IIV3 (Age 65+ Years) Preserv Free 07/05/2024 Pneumococcal Poly,23-Valent (Pneumovax) 12/31/2013 Pneumococcal conj 13-Valent (Prevnar 13) 10/31/2016 RSV, Recombinant ADJ Reconst ituted (Arexvy 120MCG/0.5mL) 07/10/2023 Td (Age >=7 Years) 11/10/2002 Tdap 03/11/2024,12/31/2013 Zoster (Shingrix-RZV, recombinant) 03/08/2019, Family History Medical History Relation Name Comments Aortic aneurysm Brother 1 Iron of a ru ptured AAA at 79 Cancer Brother 2 Abraham of an unus ual cancer at 78 Allergies Daughter 3 Asthma Father Cancer Father lung of th is and copd at 89 Emphysema Father Hypertension Father Arthritis Mother Bilateral shoul fina replacement Other Mother of old age at 102 Cancer Other paternal niece colon cancer age 26 Stroke Paternal Grandfather Arthritis Sister 1 Karen Bilateral shoul fina hip & knee rep Arthritis Sister 2 Belinda Knee and hip Cancer-pancreatic Sister 2 Belinda of th is at 72 Relation Name Status Comments Brother 1 Iron Brother 2 Abraham Daughter 1 Alive Daughter 2 Alive Daughter 3 Father Mother Other Paternal Grandfather Sister 1 Karen Alive Sister 2 Belinda Social History Tobacco Use Types Packs/Day Years Used Date Smoking Tobacco: Former Cigarettes Q uit: 10/07/1978 Smokeless Tobacco: Never Tobacco Cessation:Counseling Given: No Alcohol Use Standard Drinks/Week Comments No 0 (1 standard drink = 0.6 oz pur e alcohol) PHQ-2 Answer Date Recorded PHQ-2 TOTAL SCORE 0 04/21/2025 Social Connections Answer Date Recorded Do you often feel lonely or isolated from those around you? 0 05/13/2024 Financial Resource Strain Answer Date R ecorded Difficulty of Paying Living Expenses 3 05/13/2024 Difficulty of Paying Living Expenses Not on file 05/13/2024 Food Insecurity Answer Date Recorded Do you worry your food will run out before you are able to buy more? 1 05/13/2024 Transportation Needs Answer Date Record ed Does lack of transportation keep you from medica l appointments? 1 05/13/2024 Does lack of transportation keep you from work, meetings or getting things that you need? 1 05/13/2024 Housing Stability Answer Date Recorded What is your housing situation today? 1 05/13/2024 Utilities Answer Date Recorded Do you have trouble paying f or utilities (for example, heat, electricity, water, phone)? 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 Not on file Not on file Not on file Obstetrics History Last Filed Vital Signs Vital Sign Reading Time Taken Comments Blood Pressure 120/58 04/21/2025 10:16 AM CDT Pulse 68 04/21/2025 9:31 AM CDT Temperature 36.4 C (97.6 F) 03/23/2025 2:45 PM CDT Respiratory Rate 18 02/27/2024 2:18 PM CDT Oxygen Saturation 95% 04/21/2025 9:31 AM CDT Inhaled Oxygen Concentration - - Weight 113.2 kg (249 lb 8 oz) 04/21/2025 9:31 AM CDT Height 171.8 cm (5' 7.64) 04/21/2025 9:31 AM CD T Body Mass Index 38.34 04/21/2025 9:31 AM CDT Plan of Treatment Upcoming Encounters Date Type Department Care Team (Late st Contact Info) Description 08/10/2025 7:30 AM ETHNOARCHAEOLOGY PROFESSOR Orders Only [facility] [address] [place] [address] Fernando Covarrubias 08/13/2025 10:30 AM ETHNOARCHAEOLOGY PROFESSOR Office Visit [facility] [address] [place] [address] Romulo Zimmer MD [address] [place] [address] Health Maintenance Due Date Last Done Comments COVID-19 vaccine series ( season) 2025 07/05/2024, 01/08/2024, 07/10/2023, Additional history exists Influenza Vaccine (#1) 2025 , 07/10/2023, 07/07/2019, Additional history exists BMI (ht and wt on same day) for age 18+ 04/21/2026 04/21/2025, 03/23/2025, 03/04/2025, Additional history exists Depression screening for age 12+ 04/21/2026 04/21/2025, 03/05/2025, 05/13/2024, Additional history exists Medicare Wellness for age 65+ 04/22/2026 04/21/2025, 04/26/2023 Tetanus booster 03/11/2034 03/11/2024, 12/06, 11/10/2002 Pneumococcal series for age 50+ Completed 10/31/2016, 12/31/2013 Zoster (shingles) series for age 50+ Completed 03/08/2019, 12/07/2018 Hepatitis C screening for age 18-79 Completed 02/01/2022 RSV vaccine for adults or Completed 07/10/2023 Hepatitis B series for 19+ Aged Out N o longer eligible based on patient's age to complete this topic Medical Devices Implanted Type Area Numerical Control Router Operator Device Identifier Shelf Expiration Date Model / Serial / Lot Infrapubic Zero Degree Angle Cylinder Set W/Pump 22cm Implanted:Qty: 1 on 02/20/2022 by Torres Aguilera MD at [facility] N/A: Penis 12/11/2026 [id number] / / [id number] Description:INFRAPUBIC ZERO DEGREE ANGLE CYLINDER SET W/PUMP 22CM Cl [place] 125cc Implanted:Qty: 1 on 02/20/2022 by Torres Aguilera MD at [facility] N/A: Penis 11/13/2026 [id number] / / [id number] Description:CL RESERVOIR 125 CC Kit Asbly Std Implnt Penile Titan Implanted:Qty: 1 on 02/20/2022 by Torres Aguilera MD at [facility] N/A: Penis 10/11/2026 [id number] / / [id number] Description:Kit Asbly Std Im plnt Penile Titan Procedures Procedure Name Priority Date/Time Associated Diagnosis Comments LIPID PANEL W REFLEX MEASURED LDL Routine 03/23/2025 4:10 PM CDT Pure hypercholesterolemia BASIC METABOLIC PANEL Routine 03/23/2025 4:10 PM CDT Unspecified essential hypertension HEMOGLOBIN Routine 03/23/2025 4:08 PM CDT Unspecified essential hypertension XR HIP 1 VIEW W PELVIS LEFT Routine 03/04/2025 9:47 AM CDT Hip pain, left ANTI HCV Routine 02/01/2022 8:05 AM CDT Need for hepatitis C screening test from Last 3 Months or Most Recently Relevant to Health Maintenance Results * LIPID PANEL W REFLEX MEASURED LDL (03/23/2025 4:10 PM CDT) CHOLESTEROL, TOTAL 168 <200 mg/dL [facility] HDL CHOLESTEROL 58 > OR = 40 mg/dL [facility] TRIGLYCERIDES 87 <150 mg/dL [facility] LDL-CHOLESTEROL 92 mg/dL (calc) [facility] Comment: Reference range: <100 Desirable range <100 mg/dL for primary prevention; <70 mg/dL for patients with CHD or diabetic patients with > or = 2 CHD risk factors. LDL-C is now calculated using the Jarred-Dirk calculation, which is a validated novel method providing better accuracy than the Friedewald equation in the estimation of LDL-C. Jarred SS et al. CAR. 2013;310(19): 6252-3002 (http://education.Domino/faq/SGV286) CHOL/HDLC RATIO 2.9 <5.0 (calc) [facility] NON HDL CHOLESTEROL 110 <130 mg/dL (calc) [facility] Comment: For patients with diabetes plus 1 major ASCVD risk factor, treating to a non-HDL-C goal of <100 mg/dL (LDL-C of <70 mg/dL) is considered a therapeutic option. Blood BLOOD SPECIMEN / Unknown 03/23/2025 4:10 PM CDT 03/23/2025 4:10 PM CDT Romulo Zimmer MD CHEMISTRY Final Resu lt Performing Organization Address [facility] Co de Phone Number [facility] [employer] [facility] [address] [place] [address], [facility] [address] [place] [address] * BASIC METABOLIC PANEL (03/23/2025 4:10 PM CDT) Pathologist [facility] GLUCOSE 98 65 - 99 mg/dL [facility] Comment: Fasting reference interval UREA NITROGEN (BUN) 24 7 - 25 mg/dL [facility] CREATININE 0.83 0.70 - 1.28 mg/dL [facility] EGFR 90 > OR = 60 mL/min/1. 73m2 [facility] BUN/CREATININE RATIO SEE NOTE: 6 - 22 (calc) [facility] Comment: Not Reported: BUN and Creatinine are within reference range. SODIUM 139 135 - 146 mmol/L [facility] POTASSIUM 4.5 3.5 - 5.3 mmol/L [facility] CHLORIDE 104 98 - 110 mmol/L [facility] CARBON DIOXIDE 26 20 - 32 mmol/L [facility] ELECTROLYTE BALANCE 9 7 - 17 mmol/L (calc) [facility] CALCIUM 9.4 8.6 - 10.3 mg/dL [facility] Blood BLOOD SPECIMEN / Unknown 03/23/2025 4:10 PM CDT 03/23/2025 4:10 PM CDT Romulo Zimmer MD CHEMISTRY Final Resu lt [email or web address] [facility] [address] [place] [address], [facility] [address] [place] [address] * HEMOGLOBIN (03/23/2025 4:08 PM CDT) HEMOGLOBIN 15.4 13.2 - 17.1 g/dL [facility] Blood BLOOD SPECIMEN / Unknown 03/23/2025 4:08 PM CDT 03/23/2025 4:09 PM CDT us Romulo Zimmer MD HEMATOLOGY Final Resu lt Performing Organization Address [facility]/ZIP Co de Phone Number [email or web address] [facility] [address] [place] [address], [facility] [address] [place] [address] * XR HIP 1 VIEW W PELVIS LEFT (03/04/2025 9:47 AM CDT) Anatomical Region Laterality Modality HIPS, HIPL, Pelvis Computed Radi ography 03/05/2025 4:48 PM CDT Impressions 03/05/2025 4:48 PM CDT 1. Cam morphology of the left proximal femur with mild axial hip joint space narrowing. 2. No acute fracture. Dictated by Arash Castillo MD @ 03/05/2025 4:48:36 PM (Electronically Signed) Narrative 03/05/2025 4:48 PM CDT For Patients: As a result of the 21st Century Cures Act, medical imaging exams and procedure reports are released immediately into your electronic medical record. You may view this report before your referring provider. If you have questions, please contact your health care provider. HISTORY: Left hip pain. TECHNIQUE: AP pelvis and two views of the left hip. COMPARISON: No prior. FINDINGS: There is cam morphology of left proximal femur. Subtle mild axial hip joint space narrowing. Cam morphology of the right proximal femur. No significant right hip joint space narrowing. Degenerative changes within the lower lumbar spine. No acute fracture. Procedure Note Arash Castillo MD - 03/05/2025 For Patients: As a result of the Cures Act, medical imagingexams and procedure reports are released immediately into your electronicmedical record. You may view this report before your referring provider.If you have questions, please contact your health care provider. HISTORY: Left hip pain. TECHNIQUE: AP pelvis and two views of the left hip. COMPARISON: No prior. FINDINGS: There is cam morphology of left proximal femur. Subtle mild axial hipjoint space narrowing. Cam morphology of the right proximal femur. Nosignificant right hip joint space narrowing. Degenerative changes withinthe lower lumbar spine. No acute fracture. IMPRESSION: 1. Cam morphology of the left proximal femur with mild axial hip jointspace narrowing. 2. No acute fracture. Dictated by Arash Castillo MD @ 03/05/2025 4:48:36 PM (Electronically Signed) us Solis Castro MD GENERAL IMAGING Final Re sult * ANTI HCV (02/01/2022 8:05 AM CDT) HEPATITIS C ANTIBODY Non-React seth Non-React seth 02/01/2022 6:35 PM CDT [facility] Comment:Antibodies to HCV no t detected; does not exclude the possibility of exposure to HCV. Blood BLOOD SPECIMEN / Unknown Venipuncture / Unknown 02/01/2022 8:05 AM CDT 02/01/2022 8:11 AM CDT us Romulo Zimmer MD SEND OUTS Final Resu lt [facility] [address] [place] [address], [place] from Last 3 Months or Most Recently Relevant to Health Maintenance Insurance MEDICARE PART A HB ONLY MEDICARE PART B HB ONLY MEDICARE PB ONLY [facility] on file Advance Directives Documents on File Type Date Recorded Patient Accounting Machine Operator Expl anation Healthcare Directive 09/23/2019 12:00 AM 09/15/2019 * Full Code (Latest Code Status on File) Date Activated Date Inactivated Comments 02/20/2022 6:49 AM 02/20/2022 3:56 PM Question Answer Comments Code Status Discussion: Unable to Assess Preferences, Provider to review later Care Teams Signs Sales Representative Relationship Specialty Start Date End Date Romulo Zimmer MD [address] [place] [address] PCP - General 10/11/06
--- OUTSIDE RECORDS SUMMARY | 2025-05-09 15:58 | XMS_ITS | Encounter Summary ---
Author Organization [facility] Address [address], [place] [address] Care Team Providers Care Manager Army Name Role Phone Romulo Zimmer MD Primary Care Provider [phone] Reason for Visit * Reason Comments Post-Op Follow Up Call Encounter Details Date Type Department Care Team (Late st Contact Info) Description 04/12/2025 Telephone [facility] [place] [address] [place] [address] [phone] Brian Pan MD [address] [place] [address] [phone] Post-Op Follow Up Call Social History Tobacco Use Types Packs/Day Years Used Date Smoking Tobacco: Former Smokeless Tobacco: Never Comments:Quit smoking: Alcohol Use Standard Drinks/Week Comments Never 0 (1 standard drink = 0.6 oz pur e alcohol) [facility] Utilities Answer Date Recorded In the [...] any time in the past 12 m [facility], were you homeless or living in a intermediate (including now)? No 04/08/2025 Sex and Gender Information Value Date Recorded Sex Assigned at Not on file Legal Sex Male 11:13 PM CDT Gender Identity Not on file Sexual Orientation Not on file documented as of this encounter Nursing Notes * Madina Page RN - 04/12/2025 11:29 AM CDT Images from the original note were not included. Brian Pan MD You; Helen Quijano, ORACLE R12 DEVELOPER, SELLING UNDERWRITER; Lizzy Crews, SUSAN-C40 minutes ago (10:48 AM) Yeah its the lateral femoral cutaneus nerve. Frequently irritated during surgery. Almost always comes back. *b Called pt and relayed message. Pt verbalized understanding. * Madina Page RN - 04/12/2025 10:08 AM CDT Post surgical discharge follow up call completed. See doc flowsheet: SURGDC for details. Pt states he has numbness on the side of the leg down from incision to about a couple inches above the knee. Feels a bit in the front but mostly down the side. Let him know with the fracture and thensurgery those nerves have been affected. Encouraged him to be cautious about icing over the area asit might irritate more and he said it does, it harley. Also encouraged he could just rub (not massage) the area just to encourage circulation and maybe dissipate some of that strange feeling and he said he did that today and the rubbing helps. Let him know this nurse would pass along to surgeon. documented in this encounter Plan of Treatment Upcoming Encounters Date Type Department Care Team (Late st Contact Info) Description 05/26/2025 10:20 AM CDT Appointment [facility] [place]Note 2] [address] [place] [address] Lizzy Crews, PA-C [address] [place] [address] documented as of this encounter Goals Goal [...] documented as of this encounter Care Teams Manager Army Relationship Specialty Start Date End Date Romulo Zimmer MD [facility] [place] [address] PCP - General Family Practice 04/15/24 documented as of this encounter
--- OUTSIDE RECORDS SUMMARY | 2025-05-09 15:58 | XMS_ITS | Encounter Summary ---
Author Organization [facility] [employer] [facility] Address [address] [place] [address] Care Team Providers Care Qualitative Field Project Manager Name Role Phone Romulo Zimmer MD Primary Care Provider [phone] Encounter Details Date Type Department Care Team (Latest Contact Info) Description 04/08/2025 Orders Only [facility] DEPARTMENT Provider, [place] [address] Social History Tobacco Use Types Packs/Day Years Used Date Smoking Tobacco: Former Smokeless Tobacco: Never Comments:Quit smoking: Alcohol Use Standard Drinks/Week Comments Never 0 (1 standard drink = 0.6 oz pur e alcohol) [facility] Utilities Answer Date Recorded In the past 12 months has [facility] [employer], gas, oil, or water [employer] threatened to shut off services in your [...] any time in the past 12 m [facility], were you homeless or living in a chcf (including now)? No 04/08/2025 Sex and Gender Information Value Date Recorded Sex Assigned at Not on file Legal Sex Male 11:13 PM CDT Gender Identity Not on file Sexual Orientation Not on file documented as of this encounter Functional Status documented as of this encounter Plan of Treatment Upcoming Encounters Date Type Department Care Team (Late st Contact Info) Description 05/26/2025 10:20 AM CDT Appointment [facility] [address] [place] [address] Lizzy Crews, PA-C [address] [place] [address] documented as of this encounter Goals Goal [...] Procedure Name Priority Date/Time Associated Diagnosis Comments EKG 04/08/2025 documented in this encounter Results * EKG (04/08/2025) us Interface Provider EKMary Final Resu lt documented in this encounter Visit Diagnoses Not [...] documented as of this encounter Care Teams Qualitative Field Project Manager Relationship Specialty Start Date End Date Romulo Zimmer MD [address] [place] [address] PCP - General Family Practice 04/15/24 documented as of this encounter
--- OUTSIDE RECORDS SUMMARY | 2025-05-09 15:58 | XMS_ITS | Encounter Summary ---
Author Organization [employer] Address [address], [place] [address] Care Team Providers Care Screw Machine Tender Name Role Phone Romulo Zimmer MD Primary Care Provider [phone] Reason for Visit * Reason Comments Paperwork Encounter Details Date Type Department Care Team (Late st Contact Info) Description 04/07/2025 Telephone [facility] [place] [address] [place] [address] [phone] Brian Pan MD [address] [place] [address] [phone] Paperwork Social History Tobacco Use Types Packs/Day Years Used Date Smoking Tobacco: Former Smokeless Tobacco: Never Comments:Quit smoking: Alcohol Use Standard Drinks/Week Comments Never 0 (1 standard drink = 0.6 oz pur e alcohol) [facility] Utilities Answer Date Recorded In the [...] any time in the past 12 m [facility], were you homeless or living in a jail (including now)? No 04/08/2025 Sex and Gender Information Value Date Recorded Sex Assigned at Not on file Legal Sex Male 11:13 PM CDT Gender Identity Not on file Sexual Orientation Not on file documented as of this encounter Functional Status documented as of this encounter Nursing Notes * Kylie Liu - 04/07/2025 4:27 PM CDT HANDICAP PARKING Date of Surgery: April 08, 2025 Type of surgery/injury: Left anterior DEEJAY Reason patient is requesting handicap parking: César chowdhury to walk so far Are you currently using any assistive devices: No How would you like to receive this form: Mailed to address on file has not received the form from conversation on 03/30/25 they were going to send one [It Security Manager/Environmental Maintenance Worker: If patient would like this sent anywhere other than to themselves, we need them to sign a Release of Information. Does patient have a current release of information on file?] No If we are unable to reach you can we leave a detailed message on your voicemail? Yes If we are unable to reach you can we send you a message in [employer]? No [It Security Manager/Environmental Maintenance Worker: We will complete this as soon as possible, but it may take up to 1-2 business days to complete.] documented in this encounter Plan of Treatment Upcoming Encounters Date Type Department Care Team (Late st Contact Info) Description 05/26/2025 10:20 AM CDT Appointment [facility] Orthopedic [facility] [address] [place] [id number] Lizzy Crews, PA-C Formerly [facility] [place] [address] documented as of this encounter Goals Goal [...] documented as of this encounter Care Teams Screw Machine Tender Relationship Specialty Start Date End Date Romulo Zimmer MD [address] [place] [address] PCP - General Family Practice 04/15/24 documented as of this encounter
--- NOTE | 2025-05-09 16:05 | CRLHL7_ITS ---
For Patients: As a result of the Cures Act, medical imaging exams and procedure reports are released immediately into your electronic medical record. You may view this report before your referring provider. If you have questions, please contact your health care provider. 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 No acute fracture. No evidence of hardware loosening. Degenerative changes of the imaged lower lumbar spine. No suspicious osseous lesions. The soft tissues are unremarkable. Dictated by Catracho Wilhelm MD @ 05/09/2025 4:38:36 PM (Electronically Signed)
--- NOTE | 2025-05-09 16:25 | ED_ITS ---
HPI - General Adult General Date Seen: 05/09/25 <Marsha Romo MD - Last Filed: 05/09/25 21:14> Chief complaint: Hip Injury/Pain <Marsha Romo MD - Last Filed: 05/09/25 21:14> Stated complaint: hip injury <Marsha Romo MD - Last Filed: 05/09/25 21:14> Time Seen by Provider: 05/09/25 15:58 <Marsha Romo MD - Last Filed: 05/09/25 21:14> History of Present Illness HPI narrative: Patient is a 75-year-old here by EMS for evaluation of his left hip. He had a and hip replacement at [facility] on April 08, has been doing well until today when he stood up off the toilet, felt a pop in his left hip and noted when he was standing up that his left foot was directed outward and he could not move his leg. Medics gave 75 mcg of fentanyl, he does still have pain although it is better. No fall or trauma. No other complaints. <Marsha Romo MD - Last Filed: 05/09/25 21:14> Related Data Home medications: Home Medications ?Medication ?Instructions ?Recorded ?Confirmed amlodipine 5 mg tablet 5 mg PO DAILY 06/04/2405/09 atorvastatin 40 mg tablet 40 mg PO DAILY 06/04/2412/29 lisinopril 20 1 tab PO DAILY 06/04/2412/29 mg-hydrochlorothiazide 12.5 mg tablet <Marsha Romo MD - Last Filed: 05/09/25 21:14> Allergies/adverse reactions: Allergies Allergy/AdvReac Type Severity Reaction Status Date / Time No Known Drug Allergies Allergy Verified 05/09/25 16:15 <Marsha Romo MD - Last Filed: 05/09/25 21:14> Review of Systems Status of ROS: Reports: 6 or more systems reviewed and unremarkable except as noted in History and below <Marsha Romo MD - Last Filed: 05/09/25 21: 14> Exam Narrative: Exam Narrative: Vital signs reviewed In general, alert, nontoxic elderly male, looks reasonably comfortable. Head: Normocephalic, atraumatic. Eyes: Sclera clear. Pupils equal and reactive. ENT: Mucous membranes moist. Neck: Supple without adenopathy. Heart: Regular rate and rhythm without murmur. Lungs: Clear. No increased work of breathing, crackles or wheezes. Abdomen: Soft, nontender to palpation. Extremities: Some edema noted in both feet. The left leg is shortened and externally rotated. Sensation is intact, he is able to wheel is toes. I do not feel a pulse in the left foot, but capillary refill is brisk, and the foot is warm. Neurologic: Alert, conversant. Speech fluent, face symmetric. Moves all extremities equally. Skin: Warm, dry well perfused. Affect: Normal. <Marsha Romo MD - Last Filed: 05/09/25 21:14> Const: Vital Signs, click to edit/add: Vital Signs - 24 hr 05/09/25 16:05 05/09/25 16:14 05/09/25 16:15 Temperature 98.1 F Pulse Rate 74 71 Pulse Rate [Pulse Oximeter] 74 Respiratory Rate 16 Blood Pressure Blood Pressure [Ri ght Upper Arm] 179/95 H Pulse Oximetry 93 92 92 Oxygen Delivery Me thod Room Air Oxygen Flow Rate 05/09/25 16:28 05/09/25 16:48 05/09/25 17:00 Temperature Pulse Rate 74 71 Pulse Rate [Pulse Oximeter] Respiratory Rate 24 Blood Pressure Blood Pressure [Ri ght Upper Arm] Pulse Oximetry 93 93 Oxygen Delivery Me thod Room Air Oxygen Flow Rate 05/09/25 17:02 05/09/25 17:15 05/09/25 17:30 Temperature Pulse Rate 71 71 73 Pulse Rate [Pulse Oximeter] Respiratory Rate 21 23 20 Blood Pressure 168/92 H Blood Pressure [Ri ght Upper Arm] Pulse Oximetry 94 94 93 Oxygen Delivery Me thod Oxygen Flow Rate 05/09/25 17:32 05/09/25 17:40 05/09/25 17:44 Temperature Pulse Rate 70 78 72 Pulse Rate [Pulse Oximeter] Respiratory Rate 23 21 25 H Blood Pressure 161/97 H 176/84 H 137/85 Blood Pressure [Ri ght Upper Arm] Pulse Oximetry 94 97 94 Oxygen Delivery Me thod Nasal Cannula Nasal Cannula Oxygen Flow Rate 1 1 05/09/25 17:45 05/09/25 17:47 05/09/25 17:52 Temperature Pulse Rate 72 70 69 Pulse Rate [Pulse Oximeter] Respiratory Rate 25 H 21 23 Blood Pressure 108/83 142/87 H Blood Pressure [Ri ght Upper Arm] Pulse Oximetry 97 96 95 Oxygen Delivery Me thod Nasal Cannula Nasal Cannula Nasal Cannula Oxygen Flow Rate 1 1 1 05/09/25 18:00 05/09/25 18:02 05/09/25 18:15 Temperature Pulse Rate 71 77 69 Pulse Rate [Pulse Oximeter] Respiratory Rate 16 22 19 Blood Pressure 127/94 H Blood Pressure [Ri ght Upper Arm] Pulse Oximetry 96 95 95 Oxygen Delivery Me thod Nasal Cannula Oxygen Flow Rate 1 05/09/25 18:30 05/09/25 18:35 05/09/25 18:45 Temperature Pulse Rate 69 74 69 Pulse Rate [Pulse Oximeter] Respiratory Rate 24 32 H 19 Blood Pressure 155/100 H Blood Pressure [Ri ght Upper Arm] Pulse Oximetry 95 94 95 Oxygen Delivery Me thod Oxygen Flow Rate 05/09/25 19:00 05/09/25 19:02 05/09/25 19:03 Temperature Pulse Rate 67 66 73 Pulse Rate [Pulse Oximeter] Respiratory Rate 18 16 32 H Blood Pressure 162/84 H Blood Pressure [Ri ght Upper Arm] Pulse Oximetry 94 94 93 Oxygen Delivery Me thod Oxygen Flow Rate <Marsha Romo MD - Last Filed: 05/09/25 21:14> Vital Signs, click to edit/add: Vital Signs - 24 hr 05/09/25 16:05 05/09/25 16:14 05/09/25 16:15 Temperature 98.1 F Pulse Rate 74 71 Pulse Rate [Pulse Oximeter] 74 Respiratory Rate 16 Blood Pressure Blood Pressure [Ri ght Upper Arm] 179/95 H Pulse Oximetry 93 92 92 Oxygen Delivery Me thod Room Air Oxygen Flow Rate 05/09/25 16:28 05/09/25 16:48 05/09/25 17:00 Temperature Pulse Rate 74 71 Pulse Rate [Pulse Oximeter] Respiratory Rate 24 Blood Pressure Blood Pressure [Ri ght Upper Arm] Pulse Oximetry 93 93 Oxygen Delivery Me thod Room Air Oxygen Flow Rate 05/09/25 17:02 05/09/25 17:15 05/09/25 17:30 Temperature Pulse Rate 71 71 73 Pulse Rate [Pulse Oximeter] Respiratory Rate 21 23 20 Blood Pressure 168/92 H Blood Pressure [Ri ght Upper Arm] Pulse Oximetry 94 94 93 Oxygen Delivery Me thod Oxygen Flow Rate 05/09/25 17:32 05/09/25 17:40 05/09/25 17:44 Temperature Pulse Rate 70 78 72 Pulse Rate [Pulse Oximeter] Respiratory Rate 23 21 25 H Blood Pressure 161/97 H 176/84 H 137/85 Blood Pressure [Ri ght Upper Arm] Pulse Oximetry 94 97 94 Oxygen Delivery Me thod Nasal Cannula Nasal Cannula Oxygen Flow Rate 1 1 05/09/25 17:45 05/09/25 17:47 05/09/25 17:52 Temperature Pulse Rate 72 70 69 Pulse Rate [Pulse Oximeter] Respiratory Rate 25 H 21 23 Blood Pressure 108/83 142/87 H Blood Pressure [Ri ght Upper Arm] Pulse Oximetry 97 96 95 Oxygen Delivery Me thod Nasal Cannula Nasal Cannula Nasal Cannula Oxygen Flow Rate 1 1 1 05/09/25 18:00 05/09/25 18:02 05/09/25 18:15 Temperature Pulse Rate 71 77 69 Pulse Rate [Pulse Oximeter] Respiratory Rate 16 22 19 Blood Pressure 127/94 H Blood Pressure [Ri ght Upper Arm] Pulse Oximetry 96 95 95 Oxygen Delivery Me thod Nasal Cannula Oxygen Flow Rate 1 05/09/25 18:30 05/09/25 18:35 05/09/25 18:45 Temperature Pulse Rate 69 74 69 Pulse Rate [Pulse Oximeter] Respiratory Rate 24 32 H 19 Blood Pressure 155/100 H Blood Pressure [Ri ght Upper Arm] Pulse Oximetry 95 94 95 Oxygen Delivery Me thod Oxygen Flow Rate 05/09/25 19:00 05/09/25 19:02 05/09/25 19:03 Temperature Pulse Rate 67 66 73 Pulse Rate [Pulse Oximeter] Respiratory Rate 18 16 32 H Blood Pressure 162/84 H Blood Pressure [Ri ght Upper Arm] Pulse Oximetry 94 94 93 Oxygen Delivery Me thod Oxygen Flow Rate <Nereida Barbosa MD - Last Filed: 05/09/25 19:17> Course Course ED Course: Following initial evaluation he had x-rays of the left hip which confirm dislocation by my review. I did not see evidence of fracture or damage to his hardware. Radiology reads this as a superior and lateral dislocation of the left hip. Discussed this with the patient and his , recommended sedation so that we could reduce this. We discussed the risks and benefits of both sedation as well as reduction of the hip. Discussed that with recent surgery, the risk of injury to the hardware is probably a little bit higher, but that the alternative of leaving the hip dislocated is simply not an option. Risks of sedation including over-sedation, need for airway management, aspiration, discussed. Patient agreed to proceed. Procedure note: Dr. Cobb provided anesthesia for this case, please see her note for at a details. He was maintained on cardiac, oxygen and end-tidal CO2 monitoring. He received propofol with good effect. He did not have any complications regarding the sedation. I was able to reduce the hip using tr action and mild flexion of the hip. Follow-up hip x-rays show reduction of the hip. No fracture. He awakened without difficulty. He is feeling well, will send him home with an addict a pillar low. I have asked him to call his orthopedic clinic tomorrow to let them know what happened. He does not have any pain at this time. Return as needed if he has problems with any recurrent dislocations. <Marsha Romo MD - Last Filed: 05/09/25 21:14> Vital Signs Vital signs: Initial Vital Signs Temperature 98.1 F 05/09/25 16:05 Temperature Source Temporal Artery Scan 05/09/25 16:05 Pulse Rate 74 05/09/25 16:05 Respiratory Rate 16 05/09/25 16:05 Blood Pressure 179/95 H 05/09/25 16:05 Blood Pressure Mean 123 H 05/09/25 16:05 Blood Pressure Position Sitting 05/09/25 16:05 Pulse Oximetry 93 05/09/25 16:05 Oxygen Delivery Method Room Air 05/09/25 16:05 Vital Signs Temperature 98.1 F 05/09/25 16:05 Pulse Rate 74 05/09/25 16:05 Respiratory Rate 16 05/09/25 16:05 Blood Pressure 179/95 H 05/09/25 16:05 Pulse Oximetry 93 05/09/25 16:05 Oxygen Delivery Method Room Air 05/09/25 16:05 Temperature 98.1 F 05/09/25 16:05 Pulse Rate 73 05/09/25 19:03 Respiratory Rate 32 H 05/09/25 19:03 Blood Pressure 162/84 H 05/09/25 19:02 Pulse Oximetry 93 05/09/25 19:03 Oxygen Delivery Method Nasal Cannula 05/09/25 18:00 Oxygen Flow Rate 1 05/09/25 18:00 <Marsha Romo MD - Last Filed: 05/09/25 21:14> Initial Vital Signs Temperature 98.1 F 05/09/25 16:05 Temperature Source Temporal Artery Scan 05/09/25 16:05 Pulse Rate 74 05/09/25 16:05 Respiratory Rate 16 05/09/25 16:05 Blood Pressure 179/95 H 05/09/25 16:05 Blood Pressure Mean 123 H 05/09/25 16:05 Blood Pressure Position Sitting 05/09/25 16:05 Pulse Oximetry 93 05/09/25 16:05 Oxygen Delivery Method Room Air 05/09/25 16:05 Vital Signs Temperature 98.1 F 05/09/25 16:05 Pulse Rate 74 05/09/25 16:05 Respiratory Rate 16 05/09/25 16:05 Blood Pressure 179/95 H 05/09/25 16:05 Pulse Oximetry 93 05/09/25 16:05 Oxygen Delivery Method Room Air 05/09/25 16:05 Temperature 98.1 F 05/09/25 16:05 Pulse Rate 73 05/09/25 19:03 Respiratory Rate 32 H 05/09/25 19:03 Blood Pressure 162/84 H 05/09/25 19:02 Pulse Oximetry 93 05/09/25 19:03 Oxygen Delivery Method Nasal Cannula 05/09/25 18:00 Oxygen Flow Rate 1 05/09/25 18:00 <Nereida Barbosa MD - Last Filed: 05/09/25 19:17> Medications Administered Medications: Discontinued Medications Generic Name Dose Route Start Last Admin Trade Name Freq PRN Reason Stop Dose Admin Sodium Chloride 1,000 mls @ 1,000 mls/hr 05/09/25 16:30 05/09/25 18:26 0.9 % Sodium Chloride 1000 Ml IV 05/09/25 17:29 Infused .Q1H JAKY Infusion Propofol 200 mg 05/09/25 16:28 05/09/25 17:37 Propofol 10 Mg/Ml Inj IVP 05/09/25 16:29 100 mg ONCE ONE Administration <Marsha Romo MD - Last Filed: 05/09/25 21:14> Discontinued Medications Generic Name Dose Route Start Last Admin Trade Name Keithq PRN Reason Stop Dose Admin Sodium Chloride 1,000 mls @ 1,000 mls/hr 05/09/25 16:30 05/09/25 18:26 0.9 % Sodium Chloride 1000 Ml IV 05/09/25 17:29 Infused .Q1H JAKY Infusion Propofol 200 mg 05/09/25 16:28 05/09/25 17:37 Propofol 10 Mg/Ml Inj IVP 05/09/25 16:29 100 mg ONCE ONE Administration <Nereida Barbosa MD - Last Filed: 05/09/25 19:17> Medical Decision Making Imaging Data Hip x-ray: Attestation: I have reviewed the pertinent imaging results. <Marsha Romo MD - Last Filed: 05/09/25 21:14> Radiologist's impression: Patient: David Benito MR#: [id number] : 1950 Acct:[id number] Loc: ED Service Date: 05/09/[address]: Ordering Physician: Marsha Romo M.D. Date of Service: 05/09/25 Procedure(s): XR hip LT min 2V Accession Number(s): [id number] cc: Marsha Romo M.D.; Romulo Zimmer M.D.~ For Patients: As a result of the Cures Act, medical imaging exams and procedure reports are released immediately into your electronic medical record. You may view this report before your referring provider. If you have questions, please contact your health care provider. Indication: post reduction left hip Technique: Two views of the left hip Comparison: Same-day left hip radiographs Findings/Impression: Successful reduction of the previously imaged dislocated left hip prosthesis, now in correct alignment. No acute fracture. Dictated by Catracho Wilhelm MD @ 05/09/2025 7:03:26 PM Patient: David Benito MR#: [id number] : 1950 Acct:[id number] Loc: ED Service Date: 05/09/[address]: Ordering Physician: Marsha Romo M.D. Date of Service: 05/09/25 Procedure(s): XR hip LT min 2V Accession Number(s): [id number] cc: Marsha Romo M.D.; Romulo Zimmer M.D.~ For Patients: As a result of the Cures Act, medical imaging exams and procedure reports are released immediately into your electronic medical record. You may view this report before your referring provider. If you have questions, please contact your health care provider. 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 No acute fracture. No evidence of hardware loosening. Degenerative changes of the imaged lower lumbar spine. No suspicious osseous lesions. The soft tissues are unremarkable. Dictated by Catracho Wilhelm MD @ 05/09/2025 4:38:36 PM <Marsha Romo MD - Last Filed: 05/09/25 21:14> Discharge Plan Discharge Clinical Impression: Closed dislocation of left hip <Marsha Romo MD - Last Filed: 05/09/25 21:14> Patient Disposition: Home, Self-Care <Marsha Romo MD - Last Filed: 05/09/25 21:14> Condition: Improved <Marsha Romo MD - Last Filed: 05/09/25 21:14> Instructions: Hip Dislocation (ED), Hip Abduction Pillow (DC) <Marsha Romo MD - Last Filed: 05/09/25 21:14> Additional Instructions: Please call your orthopedic clinic tomorrow to let them know that you had a dislocation. Your x-rays after reduction look good, there is no evidence of fracture or damage to the hardware. <Marsha Romo MD - Last Filed: 05/09/25 21:14> Prescriptions: No Action lisinopril-hydrochlorothiazide 20-12.5 mg tablet 1 tab PO DAILY atorvastatin 40 mg tablet 40 mg PO DAILY amlodipine 5 mg tablet 5 mg PO DAILY <Marsha Romo MD - Last Filed: 05/09/25 21:14> Follow Up/Referrals: Romulo Zimmer MD [Primary Care Provider, Family Practice] <Marsha Romo MD - Last Filed: 05/09/25 21:14> Stand Alone [facility]: [facility] Inst[facility] <Marsha Romo MD - Last Filed: 05/09/25 21:14> Procedures Procedural Sedation Pre procedure diagnosis: Dislocated left hip <Nreeida Barbosa MD - Last Filed: 05/09/25 19:17> Post procedure diagnosis: Same <Nereida Barbosa MD - Last Filed: 05/09/25 19:17> Verification/time out: correct patient, correct site and correct procedure <Nereida Smart MD - Last Filed: 05/09/25 19:17> Name of person perfmorming the procedure: Marsha Romo <Nereida Barbosa MD - Last Filed: 05/09/25 19:17> Sedation provider same as procedural provider: No (Dr. Cobb present for sedation/anesthesia) <Nereida Barbosa MD - Last Filed: 05/09/25 19:17> Indication: fracture/dislocation reduction <Nereida Barbosa MD - Last Filed: 05/09/25 19:17> Presedation Evaluation: Patient found to be appropriate for emergent reduction of dislocated hip. <Nereida Barbosa MD - Last Filed: 05/09/25 19:17> ASA Class: II <Nereida Barbosa MD - Last Filed: 05/09/25 19:17> Mallampati classification: II. soft palate, fauces, uvula visible <Nereida Barbosa MD - Last Filed: 05/09/25 19:17> Preparation: teletypesetter monitor applied, pulse oximeter, capnometry used, supplemental O2 applied, suction/airway equipment at bedside and IV secured <Nereida Smart MD - Last Filed: 05/09/25 19:17> IV Propofol dose (mg): 100 <Nereida Barbosa MD - Last Filed: 05/09/25 19:17> Complications: none <Nereida Barbosa MD - Last Filed: 05/09/25 19:17> Additional Comments: Patient tolerated the propofol well, no complications noted. He had no significant hypoventilation or apnea. He remained hemodynamically stable throughout. He recovered nicely without complication and was discharged from conscious sedation protocol when he met appropriate post sedation criteria. <Nereida Barbosa MD - Last Filed: 05/09/25 19:17>
[2025-05-09] MEDS: PROPOFOL 10 MG/ML INJ 200 MG IVP (17:37)
--- NOTE | 2025-05-09 17:53 | CRLHL7_ITS ---
For Patients: As a result of the Cures Act, medical imaging exams and procedure reports are released immediately into your electronic medical record. You may view this report before your referring provider. If you have questions, please contact your health care provider. Indication: post reduction left hip Technique: Two views of the left hip Comparison: Same-day left hip radiographs Findings/Impression: Successful reduction of the previously imaged dislocated left hip prosthesis, now in correct alignment. No acute fracture. Dictated by Catracho Wilhelm MD @ 05/09/2025 7:03:26 PM (Electronically Signed)
== END 2025-05-09 19:25 | disposition home or self-care (01) ==
PROVIDERS: Emergency Provider Emergency Medicine; PCP Family Medicine
DX: T84.021A Dislocation of internal left hip prosthesis, initial encounter (principal); W19.XXXA Unspecified fall, initial encounter
CPT/HCPCS: 27266; 73502; 94761; 99156; 99284; 99285; J2704; J7030

== ENCOUNTER 2025-06-08 23:01 | Outpatient (CLI) | payer MEDICARE, BC, SELFPAY | END 2025-06-08 23:02 | disposition home or self-care (01) | LOC: AMB 06-11 08:26 | PROVIDERS: PCP Family Medicine; Visit Provider Emergency Medicine | DX: S73.005A Unspecified dislocation of left hip, initial encounter (principal); Y93.B9 Activity, other involving muscle strengthening exercises; Y92.009 Unspecified place in unspecified non-institutional (private) residence as the place of occurrence of the external cause | CPT/HCPCS: A0425; A0427 ==

== ENCOUNTER 2025-06-08 23:48 | Emergency (ER) | payer MEDICARE, BC, SELFPAY ==
--- OUTSIDE RECORDS SUMMARY | 2025-05-09 | XMS_ITS | Encounter Summary ---
Author Organization [employer] Address [address] [place] [address] Care Team Providers Care Director Of Mobile Marketing Name Role Phone Romulo Zimmer MD Primary Care Provider [phone] Encounter Details Date Type Department Care Team (Late st Contact Info) Description 05/09/2025 Ancillary Procedure Radiology [facility] [address] [place] [address] Provider, [employer] [address] [place] [address] Social History Tobacco Use Types Packs/Day Years Used Date Smoking Tobacco: Former Smokeless Tobacco: Never Comments:Quit smoking: Alcohol Use Standard Drinks/Week Comments Never 0 (1 standard drink = 0.6 oz pur e alcohol) [facility] Utilities Answer Date Recorded In the past [address] [facility] [employer], gas, oil, or water [employer] threatened to shut off services in your [...] any time in the past 12 m [facility], were you homeless or living in a half-way (including now)? No 04/08/2025 Sex and Gender Information Value Date Recorded Sex Assigned at Not on file Legal Sex Male 11:13 PM CDT Gender Identity Not on file Sexual Orientation Not on file documented as of this encounter Plan of Treatment Upcoming Encounters Date Type Department Care Team (Late st Contact Info) Description 06/23/2025 10:45 AM CDT Appointment [facility] Orthopedic [facility] [address] [place], [place] [address] Brian Pan MD [address] [place] [address] documented as of this encounter Goals Goal [...] Procedure Name Priority Date/Time Associated Diagnosis Comments FOREIGN IMAGE(S) XR PELVIS AND HIP Routine 05/09/2025 12:00 AM CDT documented in this encounter Visit Diagnoses Not on filedocumented in this encounter Additional Health Concerns Active [...] documented as of this encounter Care Teams Director Of Mobile Marketing Relationship Specialty Start Date End Date Romulo Zimmer MD [facility] [place] [address] PCP - General Family Practice 04/15/24 documented as of this encounter
--- OUTSIDE RECORDS SUMMARY | 2025-05-09 | XMS_ITS | Encounter Summary ---
Author Organization [employer] Address [address] [place] [address] Care Team Providers Care [employer] Teacher Name Role Phone Romulo Zimmer MD Primary Care Provider [phone] Encounter Details Date Type Department Care Team (Late st Contact Info) Description 05/09/2025 Ancillary Procedure Radiology [facility] [address] [place] [address] Provider, Foreign [employer] [address] [place] [address] Social History Tobacco Use Types Packs/Day Years Used Date Smoking Tobacco: Former Smokeless Tobacco: Never Comments:Quit smoking: Alcohol Use Standard Drinks/Week Comments Never 0 (1 standard drink = 0.6 oz pur e alcohol) [facility] Utilities Answer Date Recorded In the past 12 months has [facility] [email or web address], gas, oil, or water [employer] threatened to shut off services in your [...] were you homeless or living in a prison (including now)? No 04/08/2025 Sex and Gender Information Value Date Recorded Sex Assigned at Not on file Legal Sex Male 11:13 PM CDT Gender Identity Not on file Sexual Orientation Not on file documented as of this encounter Plan of Treatment Upcoming Encounters Date Type Department Care Team (Late st Contact Info) Description 06/23/2025 10:45 AM CDT Appointment [facility] Orthopedic [facility] [address] [place], [place] [address] Brian Pan MD [address] [place] [address] documented as of this encounter Goals Goal [...] documented as of this encounter Care Teams [employer] Teacher Relationship Specialty Start Date End Date Romulo Zimmer MD [facility] [place] [address] PCP - General Family Practice 04/15/24 documented as of this encounter
--- OUTSIDE RECORDS SUMMARY | 2025-05-09 00:05 | XMS_ITS | Encounter Summary ---
Author Organization [employer] Address [address] [place] [address] Care Team Providers Care Instrument Adjuster Name Role Phone Romulo Zimmer MD Primary Care Provider [phone] Encounter Details Date Type Department Care Team (Late st Contact Info) Description 05/09/2025 12:05 AM CDT Ancillary Procedure Radiology [facility] [address] [place] [address] Provider, [employer] [address] [place] [address] Social History Tobacco Use Types Packs/Day Years Used Date Smoking Tobacco: Former Smokeless Tobacco: Never Comments:Quit smoking: Alcohol Use Standard Drinks/Week Comments Never 0 (1 standard drink = 0.6 oz pur e alcohol) [facility] Utilities Answer Date Recorded In the past 12 months has [facility] [employer], gas, oil, or water [employer] threatened to shut off services in your [...] any time in the past 12 m [facility], were you homeless or living [...] Info) Description 06/23/2025 10:45 AM CDT Appointment [facility] Orthopedic [facility] [address] [place] [address] Brian Pan MD [address] [place] [address] documented as of this encounter Goals Goal [...] IMAGE(S) XR PELVIS AND HIP Routine 05/09/2025 12:05 AM CDT documented in this encounter Visit [...] documented as of this encounter Care Teams Instrument Adjuster Relationship Specialty Start Date End Date Romulo Zimmer MD [address] [place] [address] PCP - General Family Practice 04/15/24 documented as of this encounter
--- OUTSIDE RECORDS SUMMARY | 2025-05-09 00:05 | XMS_ITS | Encounter Summary ---
Author Organization [employer] Address [address] [place] [address] Care Team Providers Care Border Measurer Name Role Phone Romulo Zimmer MD Primary Care Provider Encounter Details Date Type Department Care Team (Late st Contact Info) Description 05/09/2025 12:05 AM CDT Ancillary Procedure Radiology [facility] [address] [place] [address] Provider, [employer] [address] [place] [address] Social History Tobacco Use Types Packs/Day Years Used Date Smoking Tobacco: Former Smokeless Tobacco: Never Comments:Quit smoking: Alcohol Use Standard Drinks/Week Comments Never 0 (1 standard drink = 0.6 oz pur e alcohol) [facility] Utilities Answer Date Recorded In the past 12 months has [facility] [employer], gas, oil, or water [employer] threatened to shut off services in your [...] any time in the past 12 m [facility], were you homeless or living in a group home (including now)? No 04/08/2025 Sex and Gender Information Value Date Recorded Sex Assigned at Not on file Legal Sex Male 11:13 PM CDT Gender Identity Not on file Sexual Orientation Not on file documented as of this encounter Plan of Treatment Upcoming Encounters Date Type Department Care Team (Late st Contact Info) Description 06/23/2025 10:45 AM CDT Appointment [facility] Orthopedic [facility] [address] [place] [address] Brian Pan MD [address] [place] [address] documented as of this encounter Goals Goal [...] documented as of this encounter Care Teams Border Measurer Relationship Specialty Start Date End Date Romulo Zimmer MD [address] [place] [address] PCP - General Family Practice 04/15/24 documented as of this encounter
--- OUTSIDE RECORDS SUMMARY | 2025-05-26 09:45 | XMS_ITS | Encounter Summary ---
Author Organization [employer] Address [address], [place] [address] Care Team Providers Care Count Team Member Name Role Phone Romulo Zimmer MD Primary Care Provider [phone] Reason for Visit * Procedure/Equipment (Routine) - Incomplete Specialty Diagnoses / Procedures Referred By Contac t Referred To Contact Diagnoses S/P total left hip arthroplasty Procedures XR Pelvis W Lt Lateral Hip Lizzy Crews PA-Beck [address] [place] [address] Phone: tel: fax: Referral ID Status Reason Start Date Expiration Date V isits Requested Visits Authorized [id number] Incomplete 05/26/2025 08/25/2026 1 1 Encounter Details Date Type Department Care Team (Late st Contact Info) Description 05/26/2025 9:45 AM CDT Ancillary Procedure [facility] [address] [place] [address] Lizzy Crews, PAJulio [address] [place], [place] [address] S/P total left hip arthroplasty Social History Tobacco Use Types Packs/Day Years Used Date Smoking Tobacco: Former Smokeless Tobacco: Never Comments:Quit smoking: Alcohol Use Standard Drinks/Week Comments Never 0 (1 standard drink = 0.6 oz pur e alcohol) [facility] Utilities Answer Date Recorded In the [...] any time in the past 12 m [facility], were you homeless or living in a assisted (including now)? No 04/08/2025 Sex and Gender Information Value Date Recorded Sex Assigned at Not on file Legal Sex Male 11:13 PM CDT Gender Identity Not on file Sexual Orientation Not on file documented as of this encounter Plan of Treatment Upcoming Encounters Date Type Department Care Team (Late st Contact Info) Description 06/23/2025 10:45 AM CDT Appointment [facility] [address] [place] [address] Brian Pan MD [address] [place] [address] documented as of this encounter Goals Goal [...] XR PELVIS W LT LATERAL HIP Routine 05/26/2025 9:50 AM CDT S/P total left hip arthroplasty documented in this encounter Results * XR Pelvis W Lt Lateral Hip (05/26/2025 9:50 AM CDT) Anatomical Region Laterality Modality Pelvis, Hip Digital Radiogra phy Narrative 05/26/2025 10:36 AM CDT EXAM: XR PELVIS W LT LATERAL HIP INDICATION: S/P DEEJAY COMPARISON: 05/09/2025 FINDINGS: Stable appearance of the left total hip arthroplasty. No evidence of periprosthetic lucency or fracture. Mild right hip osteoarthritis. Degenerative changes of the SI joints. Signed by: Jaun C Paz 05/26/2025 10:36 AM Procedure Note Juan C Paz MD - 05/26/2025 EXAM: XR PELVIS W LT LATERAL HIP INDICATION: S/P DEEJAY COMPARISON: 05/09/2025 FINDINGS: Stable appearance of the left total hip arthroplasty. No evidence ofperiprosthetic lucency or fracture. Mild right hip osteoarthritis.Degenerative changes of the SI joints. Signed by: Juan C Paz 05/26/2025 10:36 AM us Lizzy Crews PA-C RAD GD Final Resu lt documented in [...] documented as of this encounter Care Teams Count Team Member Relationship Specialty Start Date End Date Romulo Zimmer MD [address] [place] [address] PCP - General Family Practice 04/15/24 documented as of this encounter
--- OUTSIDE RECORDS SUMMARY | 2025-05-26 09:45 | XMS_ITS | Encounter Summary ---
Author Organization [employer] Address [address], [place] [address] Care Team Providers Care Ticket Taker Ferryboat Name Role Phone Romulo Zimmer MD Primary Care Provider [phone] Reason for Visit * Procedure/Equipment (Routine) - Incomplete Specialty Diagnoses / Procedures Referred By Contac t Referred To Contact Diagnoses S/P total left hip arthroplasty Procedures XR Pelvis W Lt Lateral Hip Lizzy Crews PA-Beck [address] [place] [address] Phone: tel: fax: Referral ID Status Reason Start Date Expiration Date V isits Requested Visits Authorized [id number] Incomplete 05/26/2025 08/25/2026 1 1 Encounter Details Date Type Department Care Team (Late st Contact Info) Description 05/26/2025 9:45 AM CDT Ancillary Procedure [facility] [address] [place] [address] Lizzy Crews, PAJulio [address] [place], [place] [address] S/P total left hip arthroplasty Social History Tobacco Use Types Packs/Day Years Used Date Smoking Tobacco: Former Smokeless Tobacco: Never Comments:Quit smoking: Alcohol Use Standard Drinks/Week Comments Never 0 (1 standard drink = 0.6 oz pur e alcohol) [facility] Utilities Answer Date Recorded In the [...] any time in the past 12 m [facility], were you homeless or living in a senior care (including now)? No 04/08/2025 Sex and Gender Information Value Date Recorded Sex Assigned at Not on file Legal Sex Male 11:13 PM CDT Gender Identity Not on file Sexual Orientation Not on file documented as of this encounter Plan of Treatment Upcoming Encounters Date Type Department Care Team (Late st Contact Info) Description 06/23/2025 10:45 AM CDT Appointment [facility] Orthopedic [facility] [address] [place] [address] Brian Pan MD [address] [place] [address] documented as of this encounter Goals Goal [...] by: Juan C Paz 05/26/2025 10:36 AM Procedure Note [...] documented as of this encounter Care Teams Ticket Taker Ferryboat Relationship Specialty Start Date End Date Romulo Zimmer MD [address] [place] [address] PCP - General Family Practice 04/15/24 documented as of this encounter
--- OUTSIDE RECORDS SUMMARY | 2025-05-26 10:20 | XMS_ITS | Encounter Summary ---
Author Organization [employer] Address [address], [place] [address] Care Team Providers Care Can Piler Name Role Phone Romulo Zimmer MD Primary Care Provider [phone] Reason for Referral * Procedure/Equipment (Routine) - Incomplete Specialty Diagnoses / Procedures Referred By Contac t Referred To Contact Diagnoses S/P total left hip arthroplasty Procedures XR Pelvis W Lt Lateral Hip Lizzy Crews PA-C [address] [place] [address] Phone: tel: fax: Referral ID Status Reason Start Date Expiration Date V isits Requested Visits Authorized [id number] Incomplete 05/26/2025 08/25/2026 1 1 Reason for Visit * Reason Comments Hip Problem S/P L DEEJAY, dislocati on Encounter Details Date Type Department Care Team (Late st Contact Info) Description 05/26/2025 10:20 AM CDT Office Visit [facility] [place] [address] [place], [place] [address] Lizzy Crews PA-C [address] [place], [place] [id number] S/P total left hip arthroplasty (Primary Dx) Social History Tobacco Use Types Packs/Day Years Used Date Smoking Tobacco: Former Smokeless Tobacco: Never Comments:Quit smoking: Alcohol Use Standard Drinks/Week Comments Never 0 (1 standard drink = 0.6 oz pur e alcohol) [facility] Utilities Answer Date Recorded In the past 12 months has e [employer], gas, oil, or water company threatened to [...] any time in the past 12 m [facility], were you homeless or living in a penitentiary (including now)? No 04/08/2025 Sex and Gender Information Value Date Recorded Sex Assigned at Not on file Legal Sex Male 11:13 PM CDT Gender Identity Not on file Sexual Orientation Not on file documented as of this encounter Progress Notes * Lizzy Crews PA-C - 05/26/2025 10:20 AM CDT Date of surgery: 04/08/25 Procedure: Left anterior total hip arthroplasty for subchondral fracture Surgeon: Dr. Brian Pan HPI: David is being seen today for a recheck. David is now almost 7 weeks out from the procedure. He was last seen on 04/23/25 by DAPHNIE Boucher and was instructed to continue increasing activity astolerated. Per patient phone call to clinic, his hip dislocated on 05/09/25 when he was getting up from a stool. He presented to the [place] ED where his hip was relocated. Today, he presents to clinic with his . He is ambulating with a cane. He reports that he was doing great prior to the dislocation but now he has increased pain and soreness. He states that he wasgetting up from the toilet when he dislocated and is unsure which way his toes were pointing. Physical Exam: David is awake, alert and oriented X3 in no apparent distress. Appears well nourished and well-developed. Breathing is nonlabored. Exam of the left hip reveals incision is sealed and healing well. Very minimal erythema, no drainage. Mild swelling. No signs of infection or DVT. He ambulates with a cane. Imaging: AP pelvis and left lateral hip films were ordered and personally reviewed: Stable appearance of theleft total hip arthroplasty. No evidence of periprosthetic lucency or fracture. Mild right hip osteoarthritis. Degenerative changes of the SI joints. Assessment: S/p Left anterior total hip arthroplasty for subchondral fracture, DOS: 04/08/25 Plan: Edilberto was seen today for a recheck almost 7 weeks out from his procedure. X-rays taken today show stable position and alignment of his total hip components. We discussed his hip dislocation and the risk of this happening again. He was advised to always keep his toes pointed forward and avoid externalrotation with his hip as much as possible. Hopefully, this was a one time dislocation however, if it it happens again then he would likely need to be converted to a dual mobility femoral head (revision surgery). Edilberto expressed understanding. Follow up with myself or Dr. Pan in 4-5 weeks. X-Rays Next Visit: AP pelvis/left lateral hip views Patient verbalized understanding and was in agreement with current treatment plan. All questions were answered in detail. documented in this encounter Plan of Treatment Upcoming Encounters Date Type Department Care Team (Late st Contact Info) Description 06/23/2025 10:45 AM CDT Appointment [facility] Orthopedic [facility] [address] [place] [address] Brian Pan MD [address] [place] [address] documented as of this encounter Goals Goal [...] by: Juan C Paz 05/26/2025 10:36 AM Lizzy Crews PA-C RAD GD Final Resu lt documented in this encounter Visit Diagnoses Diagnosis S/P total left hip arthroplasty- Primary S/P total left hip arthroplasty documented in this encounter Additional Health Concerns Active Problems Noted Date Diagnosed Date ET PROE SHELL PROBLEM TEMPLATE 07/17/2024 ET PRO[employer] GENERAL OUTCOMES KNEE REPLACEMENT - RIG T 07/17/2024 ET PROE RIGHT KNEE 07/17/2024 ET PROE SHELL PROBLEM TEMPLATE 03/23/2025 ET PROE GENERAL OUTCOMES HIP REPLACEMENT - LEFT 03/23/2025 ET PROE HIP REPLACEMENT - LEFT 03/23/2025 ET PROE LEFT HIP REPLACEMENT EDUCATION documented as of this encounter Care Teams Can Piler Relationship Specialty Start Date End Date Romulo Zimmer MD [address] [place] [address] PCP - General Family Practice 04/15/24 documented as of this encounter
--- OUTSIDE RECORDS SUMMARY | 2025-05-26 10:20 | XMS_ITS | Encounter Summary ---
Author Organization [employer] Address [address], [place] [address] Care Team Providers Care Concrete Finishing Machine Operator Name Role Phone Romulo Zimmer MD Primary Care Provider [phone] Reason for Referral * Procedure/Equipment (Routine) - Incomplete Specialty Diagnoses / Procedures Referred By Contac t Referred To Contact Diagnoses S/P total left hip arthroplasty Procedures XR Pelvis W Lt Lateral Hip Lizzy Crews PA-C [address] [place] [address] Phone: tel: fax: Referral ID Status Reason Start Date Expiration Date V isits Requested Visits Authorized [id number] Incomplete 05/26/2025 08/25/2026 1 1 Reason for Visit * Reason Comments Hip Problem S/P L DEEJAY, dislocati on Encounter Details Date Type Department Care Team (Late st Contact Info) Description 05/26/2025 10:20 AM CDT Office Visit [facility] [place] [address], [place] [address] Lizzy Crews PA-C [address] [place], [place] [phone] S/P total left hip arthroplasty (Primary Dx) Social History Tobacco Use Types Packs/Day Years Used Date Smoking Tobacco: Former Smokeless Tobacco: Never Comments:Quit smoking: Alcohol Use Standard Drinks/Week Comments Never 0 (1 standard drink = 0.6 oz pur e alcohol) [facility] Utilities Answer Date Recorded In the past 12 months has e [email or web address] gas, oil, or water company threatened to [...] any time in the past 12 m [facility], were you homeless or living in a snf (including now)? No 04/08/2025 Sex and Gender [...] from a stool. He presented to the [place] ED where his hip was relocated. Today, [...] Info) Description 06/23/2025 10:45 AM CDT Appointment [facility] Orthopedic [facility] [address] [place] [address] Brian Pan MD [address] [place] [address] documented as of this encounter Goals Goal [...] documented as of this encounter Care Teams Concrete Finishing Machine Operator Relationship Specialty Start Date End Date Romulo Zimmer MD [address] [place] [address] PCP - General Family Practice 04/15/24 documented as of this encounter
--- NOTE | 2025-06-08 23:49 | ED_ITS ---
HPI - General Adult General Time Seen by Provider: 23:49 <Brian Gutierrez MD - Last Filed: 06/09/25 01:33> Date Seen: 06/08/25 <Brian Gutierrez MD - Last Filed: 06/09/25 01:33> Chief complaint: Hip Injury/Pain <Brian Gutierrez MD - Last Filed: 06/09/25 01:33> Stated complaint: hip injury <Brian Gutierrez MD - Last Filed: 06/09/25 01:33> Time Seen by Provider: 06/08/25 23:49 <Brian Gutierrez MD - Last Filed: 06/09/25 01:33> Source: patient, EMS and old records reviewed <Brian Gutierrez MD - Last Filed: 06/09/25 01:33> Mode of arrival: ambulatory <Brian Gutierrez MD - Last Filed: 06/09/25 01:33> Limitations: no limitations <Brian Gutierrez MD - Last Filed: 06/09/25 01:33> History of Present Illness HPI narrative: Reviewed most recent emergency department visit from May 09 when patient was seen for left hip dislocation, had a replacement on April 08 at [facility]. The hip was reduced in the emergency department and patient was discharged <Brian Gutierrez MD - Last Filed: 06/09/25 01:33> Reviewed most recent emergency department visit from May 09 when patient was seen for left hip dislocation, had a replacement on April 08 at [facility]. The hip was reduced in the emergency department and patient was discharged. Patient has been doing well since last month. He saw his orthopedic surgeon who recommended physical therapy but also mention that if his hip dislocated again he may need revision surgery. Tonight he was doing some exercises on the floor when he has felt his hip dislocate. Since then he has been having pain in left hip and is having trouble moving it. No other injury. He did not fall. No numbness in his foot. He is not on any anticoagulants. He last ate dinner at about 8:00 p.m.. He recalls that when he was here a month ago his sedation was easy and successful. No complications. He was able to discharge home after having his hip relocated. He was given a hip abduction pillow. He was not given a knee immobilizer. <Carlos Murray MD - Last Filed: 06/09/25 01:05> Related Data Home medications: Home Medications ?Medication ?Instructions ?Recorded ?Confirmed amlodipine 5 mg tablet 5 mg PO DAILY 06/04/2405/09 atorvastatin 40 mg tablet 40 mg PO DAILY 06/04/2412/29 lisinopril 20 1 tab PO DAILY 06/04/2412/29 mg-hydrochlorothiazide 12.5 mg tablet <Brian Gutierrez MD - Last Filed: 06/09/25 01:33> Allergies/adverse reactions: Allergies Allergy/AdvReac Type Severity Reaction Status Date / Time No Known Drug Allergies Allergy Verified 06/08/25 23:56 <Brian Gutierrez MD - Last Filed: 06/09/25 01:33> [facility] Social History: Social History Smoking Status: Former smoker How often do you have a drink containing alcohol: never AUDIT-C Alcohol total score: 0 Non-prescribed substance use: denies use <Brian Gutierrez MD - Last Filed: 06/09/25 01:33> Exam Narrative: Exam Narrative: Constitutional: Appears well-developed and well-nourished. Alert. Conversant. Non toxic. HENT: Head: Atraumatic. Nose: Nose normal. Mouth/Throat: Oral mucosa is clear and moist. no trismus. Pharynx normal. Tonsils symmetric. No tonsillar enlargement, erythema, or exudate. Eyes: Conjunctivae normal. EOM normal. Pupils equal, round, and reactive to light. No scleral icterus. Neck: Normal range of motion. Neck supple. No tracheal deviation present. Cardiovascular: Normal rate, regular rhythm. No gallop. No friction rub. No murmur heard. Symmetric radial artery pulses Pulmonary/Chest: Effort normal. No stridor. No respiratory distress. No wheezes. No rales. No rhonchi . No tenderness. Abdominal: Soft. Bowel sounds normal. No distension. No mass. No tenderness. No rebound. No guarding. Musculoskeletal: RUE: Normal range of motion. No tenderness. No deformity LUE: Normal range of motion. No tenderness. No deformity RLE: Normal range of motion. No edema. No tenderness. No deformity LLE: Normal range of motion. No edema. No tenderness. No deformity Lymph: No cervical adenopathy. Neurological: Alert and oriented to person, place, and time. Normal strength. CN II-VII intact. No sensory deficit. GCS eye subscore is 4. GCS verbal subscore is 5. GCS motor subscore is 6. Normal coordination Skin: Skin is warm and dry. No rash noted. No pallor. Normal capillary refill. Psychiatric: Normal mood. Normal affect. <Carlos Murray MD - Last Filed: 06/09/25 01:05> Const: Vital Signs, click to edit/add: Vital Signs - 24 hr 06/08/25 23:52 06/08/25 23:53 06/09/25 00:06 Temperature 98.5 F Pulse Rate Pulse Rate [Right Pulse Oximeter] 68 Respiratory Rate 20 18 Blood Pressure 143/86 H Blood Pressure [Le ft Upper Arm] 154/90 H Pulse Oximetry 96 94 Oxygen Delivery Me thod Room Air Room Air Oxygen Flow Rate 06/09/25 00:07 06/09/25 00:08 06/09/25 00:12 Temperature Pulse Rate 65 64 66 Pulse Rate [Right Pulse Oximeter] Respiratory Rate 20 9 L 18 Blood Pressure 163/85 H 159/95 H Blood Pressure [Le ft Upper Arm] Pulse Oximetry 97 96 97 Oxygen Delivery Me thod Nasal Cannula Oxygen Flow Rate 2 06/09/25 00:15 06/09/25 00:18 06/09/25 00:20 Temperature Pulse Rate 68 68 65 Pulse Rate [Right Pulse Oximeter] Respiratory Rate 22 23 19 Blood Pressure 165/97 H 164/87 H Blood Pressure [Le ft Upper Arm] Pulse Oximetry 96 96 96 Oxygen Delivery Me thod Oxygen Flow Rate 06/09/25 00:22 06/09/25 00:27 06/09/25 00:30 Temperature Pulse Rate 73 64 61 Pulse Rate [Right Pulse Oximeter] Respiratory Rate 18 12 18 Blood Pressure 128/90 H 106/69 Blood Pressure [Le ft Upper Arm] Pulse Oximetry 93 94 94 Oxygen Delivery Me thod Nasal Cannula Oxygen Flow Rate 4 06/09/25 00:32 06/09/25 00:37 06/09/25 00:42 Temperature Pulse Rate 60 63 64 Pulse Rate [Right Pulse Oximeter] Respiratory Rate 16 25 H 18 Blood Pressure 115/66 122/65 136/76 Blood Pressure [Le ft Upper Arm] Pulse Oximetry 94 96 96 Oxygen Delivery Me thod Oxygen Flow Rate 06/09/25 00:45 06/09/25 00:47 06/09/25 00:48 Temperature Pulse Rate 65 64 68 Pulse Rate [Right Pulse Oximeter] Respiratory Rate 14 18 21 Blood Pressure 147/75 H Blood Pressure [Le ft Upper Arm] Pulse Oximetry 96 96 96 Oxygen Delivery Me thod Oxygen Flow Rate 06/09/25 00:52 06/09/25 00:57 06/09/25 01:00 Temperature Pulse Rate 67 67 69 Pulse Rate [Right Pulse Oximeter] Respiratory Rate 19 17 21 Blood Pressure 142/81 H 116/103 H Blood Pressure [Le ft Upper Arm] Pulse Oximetry 97 96 95 Oxygen Delivery Me thod Room Air Oxygen Flow Rate 06/09/25 01:04 06/09/25 01:04 06/09/25 01:04 Temperature Pulse Rate 66 66 66 Pulse Rate [Right Pulse Oximeter] Respiratory Rate 22 22 22 Blood Pressure 137/86 137/86 137/86 Blood Pressure [Le ft Upper Arm] Pulse Oximetry 94 94 94 Oxygen Delivery Me thod Room Air Oxygen Flow Rate 06/09/25 01:04 06/09/25 01:08 06/09/25 01:08 Temperature Pulse Rate 66 69 69 Pulse Rate [Right Pulse Oximeter] Respiratory Rate 22 19 19 Blood Pressure 137/86 166/100 H 166/100 H Blood Pressure [Le ft Upper Arm] Pulse Oximetry 94 94 94 Oxygen Delivery Me thod Oxygen Flow Rate 06/09/25 01:12 Temperature Pulse Rate 73 Pulse Rate [Right Pulse Oximeter] Respiratory Rate Blood Pressure 152/81 H Blood Pressure [Le ft Upper Arm] Pulse Oximetry 94 Oxygen Delivery Me thod Oxygen Flow Rate <Brian Gutierrez MD - Last Filed: 06/09/25 01:33> Vital Signs, click to edit/add: Vital Signs - 24 hr 06/08/25 23:52 06/08/25 23:53 06/09/25 00:06 Temperature 98.5 F Pulse Rate Pulse Rate [Right Pulse Oximeter] 68 Respiratory Rate 20 18 Blood Pressure 143/86 H Blood Pressure [Le ft Upper Arm] 154/90 H Pulse Oximetry 96 94 Oxygen Delivery Me thod Room Air Room Air Oxygen Flow Rate 06/09/25 00:07 06/09/25 00:08 06/09/25 00:12 Temperature Pulse Rate 65 64 66 Pulse Rate [Right Pulse Oximeter] Respiratory Rate 20 9 L 18 Blood Pressure 163/85 H 159/95 H Blood Pressure [Le ft Upper Arm] Pulse Oximetry 97 96 97 Oxygen Delivery Me thod Nasal Cannula Oxygen Flow Rate 2 06/09/25 00:15 06/09/25 00:18 06/09/25 00:20 Temperature Pulse Rate 68 68 65 Pulse Rate [Right Pulse Oximeter] Respiratory Rate 22 23 19 Blood Pressure 165/97 H 164/87 H Blood Pressure [Le ft Upper Arm] Pulse Oximetry 96 96 96 Oxygen Delivery Me thod Oxygen Flow Rate 06/09/25 00:22 06/09/25 00:27 06/09/25 00:30 Temperature Pulse Rate 73 64 61 Pulse Rate [Right Pulse Oximeter] Respiratory Rate 18 12 18 Blood Pressure 128/90 H 106/69 Blood Pressure [Le ft Upper Arm] Pulse Oximetry 93 94 94 Oxygen Delivery Me thod Nasal Cannula Oxygen Flow Rate 4 06/09/25 00:32 06/09/25 00:37 06/09/25 00:42 Temperature Pulse Rate 60 63 64 Pulse Rate [Right Pulse Oximeter] Respiratory Rate 16 25 H 18 Blood Pressure 115/66 122/65 136/76 Blood Pressure [Le ft Upper Arm] Pulse Oximetry 94 96 96 Oxygen Delivery Me thod Oxygen Flow Rate 06/09/25 00:45 06/09/25 00:47 06/09/25 00:48 Temperature Pulse Rate 65 64 68 Pulse Rate [Right Pulse Oximeter] Respiratory Rate 14 18 21 Blood Pressure 147/75 H Blood Pressure [Le ft Upper Arm] Pulse Oximetry 96 96 96 Oxygen Delivery Me thod Oxygen Flow Rate 06/09/25 00:52 06/09/25 00:57 06/09/25 01:00 Temperature Pulse Rate 67 67 69 Pulse Rate [Right Pulse Oximeter] Respiratory Rate 19 17 21 Blood Pressure 142/81 H 116/103 H Blood Pressure [Le ft Upper Arm] Pulse Oximetry 97 96 95 Oxygen Delivery Me thod Room Air Oxygen Flow Rate 06/09/25 01:04 06/09/25 01:04 06/09/25 01:04 Temperature Pulse Rate 66 66 66 Pulse Rate [Right Pulse Oximeter] Respiratory Rate 22 22 22 Blood Pressure 137/86 137/86 137/86 Blood Pressure [Le ft Upper Arm] Pulse Oximetry 94 94 94 Oxygen Delivery Me thod Room Air Oxygen Flow Rate 06/09/25 01:04 06/09/25 01:08 06/09/25 01:08 Temperature Pulse Rate 66 69 69 Pulse Rate [Right Pulse Oximeter] Respiratory Rate 22 19 19 Blood Pressure 137/86 166/100 H 166/100 H Blood Pressure [Le ft Upper Arm] Pulse Oximetry 94 94 94 Oxygen Delivery Me thod Oxygen Flow Rate 06/09/25 01:12 Temperature Pulse Rate 73 Pulse Rate [Right Pulse Oximeter] Respiratory Rate Blood Pressure 152/81 H Blood Pressure [Le ft Upper Arm] Pulse Oximetry 94 Oxygen Delivery Me thod Oxygen Flow Rate <Carlos Murray MD - Last Filed: 06/09/25 01:05> Course Vital Signs Vital signs: Initial Vital Signs Respiratory Effort Normal 06/08/25 23:52 Respiratory Depth Normal 06/08/25 23:52 Respiratory Pattern Normal 06/08/25 23:52 Pulse Oximetry 96 06/08/25 23:52 Oxygen Delivery Method Room Air 06/08/25 23:52 Vital Signs Pulse Oximetry 96 06/08/25 23:52 Oxygen Delivery Method Room Air 06/08/25 23:52 Temperature 98.5 F 06/08/25 23:53 Pulse Rate 73 06/09/25 01:12 Respiratory Rate 19 06/09/25 01:08 Blood Pressure 152/81 H 06/09/25 01:12 Pulse Oximetry 94 06/09/25 01:12 Oxygen Delivery Method Room Air 06/09/25 01:04 Oxygen Flow Rate 4 06/09/25 00:22 <Brian Gutierrez MD - Last Filed: 06/09/25 01:33> Initial Vital Signs Respiratory Effort Normal 06/08/25 23:52 Respiratory Depth Normal 06/08/25 23:52 Respiratory Pattern Normal 06/08/25 23:52 Pulse Oximetry 96 06/08/25 23:52 Oxygen Delivery Method Room Air 06/08/25 23:52 Vital Signs Pulse Oximetry 96 06/08/25 23:52 Oxygen Delivery Method Room Air 06/08/25 23:52 Temperature 98.5 F 06/08/25 23:53 Pulse Rate 73 06/09/25 01:12 Respiratory Rate 19 06/09/25 01:08 Blood Pressure 152/81 H 06/09/25 01:12 Pulse Oximetry 94 06/09/25 01:12 Oxygen Delivery Method Room Air 06/09/25 01:04 Oxygen Flow Rate 4 06/09/25 00:22 <Carlos Murray MD - Last Filed: 06/09/25 01:05> Medications Administered Medications: Generic Name Dose Route Start Last Admin Trade Name Freq PRN Reason Stop Dose Admin Sodium Chloride 1,000 mls @ 1,000 mls/hr 06/09/25 01:30 06/09/25 01:15 0.9 % Sodium Chloride 1000 Ml IV 06/09/25 02:29 Infused .Q1H JAKY Infusion Discontinued Medications Generic Name Dose Route Start Last Admin Trade Name Freq PRN Reason Stop Dose Admin Propofol 100 mg 06/08/25 23:53 06/09/25 00:19 Propofol 10 Mg/Ml Inj IVP 06/08/25 23:54 100 mg ONCE ONE Administration Propofol 20 mg 06/09/25 01:24 06/09/25 00:22 Propofol 10 Mg/Ml Inj IVP 06/09/25 01:25 20 mg ONCE ONE Administration <Brian Gutierrez MD - Last Filed: 06/09/25 01:33> Generic Name Dose Route Start Last Admin Trade Name Freq PRN Reason Stop Dose Admin Sodium Chloride 1,000 mls @ 1,000 mls/hr 06/09/25 01:30 06/09/25 01:15 0.9 % Sodium Chloride 1000 Ml IV 06/09/25 02:29 Infused .Q1H JAKY Infusion Discontinued Medications Generic Name Dose Route Start Last Admin Trade Name Freq PRN Reason Stop Dose Admin Propofol 100 mg 06/08/25 23:53 06/09/25 00:19 Propofol 10 Mg/Ml Inj IVP 06/08/25 23:54 100 mg ONCE ONE Administration Propofol 20 mg 06/09/25 01:24 06/09/25 00:22 Propofol 10 Mg/Ml Inj IVP 06/09/25 01:25 20 mg ONCE ONE Administration <Carlos Murray MD - Last Filed: 06/09/25 01:05> Medical Decision Making Imaging Data XR L hip post reduction: Attestation: I have reviewed the pertinent imaging results. <Carlos Murray MD - Last Filed: 06/09/25 01:05> Radiologist's impression: IMPRESSION: Reduction of the previously seen dislocated left DEEJAY. No fracture identified. <Carlos Murray MD - Last Filed: 06/09/25 01:05> XR L hip prereduction: Attestation: I have reviewed the pertinent imaging results. <Carlos Murray MD - Last Filed: 06/09/25 01:05> Radiologist's impression: IMPRESSION: Dislocated left DEEJAY. <Carlos Murray MD - Last Filed: 06/09/25 01:05> Discharge Plan Discharge Clinical Impression: Closed dislocation of left hip <Brian Gutierrez MD - Last Filed: 06/09/25 01:33> Patient Disposition: Home, Self-Care <Brian Gutierrez MD - Last Filed: 06/09/25 01:33> Condition: Stable <Brian Gutierrez MD - Last Filed: 06/09/25 01:33> Instructions: Moderate Sedation (ED), Hip Dislocation (ED) <Brian Gutierrez MD - Last Filed: 06/09/25 01:33> Additional Instructions: As we discussed, please do not drive or operate machinery for 6 hours because you will be a little bit drowsy after the sedatives. Please wear the knee immobilizer when you are up and around. This will help limit range of motion in your leg and hip and hopefully will help prevent another dislocation. Please follow-up with your orthopedic surgeon for recheck as soon as possible. Call tomorrow morning to arrange an ER follow-up visit with your surgeon. If you have any trouble, especially numbness or weakness in your leg, worsening hip pain, another episode of dislocation, or if you have any other problems, please come back to the ER right away. <Brian Gutierrez MD - Last Filed: 06/09/25 01:33> Prescriptions: No Action lisinopril-hydrochlorothiazide 20-12.5 mg tablet 1 tab PO DAILY atorvastatin 40 mg tablet 40 mg PO DAILY amlodipine 5 mg tablet 5 mg PO DAILY <Brian Gutierrez MD - Last Filed: 06/09/25 01:33> Follow Up/Referrals: Romulo Zimmer MD [Primary Care Provider, Family Practice] <Brian Gutierrez MD - Last Filed: 06/09/25 01:33> Stand Alone Forms: [facility] Info Instructions <Brian Gutierrez MD - Last Filed: 06/09/25 01:33> Procedures Procedural Sedation Pre procedure diagnosis: Left hip prosthetic dislocation <Brian Gutierrez MD - Last Filed: 06/09/25 01:33> Post procedure diagnosis: Same <Brian Gutierrez MD - Last Filed: 06/09/25 01:33> Written consent by: patient <Brian Gutierrez MD - Last Filed: 06/09/25 01:33> Verification/time out: correct patient, correct site, correct procedure and time out performed <Brian Gutierrez MD - Last Filed: 06/09/25 01:33> Name of person perfmorming the procedure: Carlos Murray <Brian Gutierrez MD - Last Filed: 06/09/25 01:33> Sedation provider same as procedural provider: No <Brian Gutierrez MD - Last Filed: 06/09/25 01:33> Indication: fracture/dislocation reduction <Brian Gutierrez MD - Last Filed: 06/09/25 01:33> Presedation Evaluation: Heart regular, lungs clear <Brian Gutierrez MD - Last Filed: 06/09/25 01:33> ASA Class: II <Brian Gutierrez MD - Last Filed: 06/09/25 01:33> Mallampati classification: III. soft palate and base of uvula visible <Brian Gutierrez MD - Last Filed: 06/09/25 01:33> Preparation: cardiac exercise specialist applied, pulse oximeter, capnometry used, supplemental O2 applied, suction/airway equipment at bedside and IV secured <Brian Gutierrez MD - Last Filed: 06/09/25 01:33> IV Propofol dose (mg): 120 <Brian Gutierrez MD - Last Filed: 06/09/25 01:33> Patient Tolerated Procedure: well and no complications <MD Ramez Montez Last Filed: 06/09/25 01:33> Interventions: oxygen applied and airway repositioned <Brian Gutierrez MD - Last Filed: 06/09/25 01:33> Additional Comments: Jaw thrust performed to maintain oxygen saturation, lowest saturation 91% <Brian Gutierrez MD - Last Filed: 06/09/25 01:33>
--- NOTE | 2025-06-08 23:51 | CRLHL7_ITS ---
For Patients: As a result of the Cures Act, medical imaging exams and procedure reports are released immediately into your electronic medical record. You may view this report before your referring provider. If you have questions, please contact your health care provider. INDICATION: Hip pain, question dislocation. TECHNIQUE: Left hip 1 view. COMPARISON: Left hip radiographs 05/09/2025. FINDINGS: Left total hip arthroplasty in place. The femoral component is dislocated superolaterally relative to the acetabular component. Hardware otherwise appears intact. No definite acute fracture. Stable small soft tissue calcifications lateral to the proximal femur. IMPRESSION: Dislocated left DEEJAY. Dictated by Sola Mckenna MD @ 06/09/2025 12:35:54 AM (Electronically Signed)
--- OUTSIDE RECORDS SUMMARY | 2025-06-08 23:51 | XMS_ITS | Encounter Summary ---
Author Organization [facility] Address [address], [place] [address] Care Team Providers Care Drawing Tender Name Role Phone Romulo Zimmer MD Primary Care Provider [phone] Reason for Visit * Reason Comments Surgery Encounter Details Date Type Department Care Team (Late st Contact Info) Description 03/22/2025 Telephone [facility] Orthopedic [facility] [address] [place] [address] Brian Pan MD [address] [place], [place] [phone] Surgery Social History Tobacco Use Types Packs/Day [...] - 03/24/2025 3:14 PM CDT Packet at criminal psychologist desk for turkey picker. Luli Marquez 3:14 PM 03/24/2025 * Luli Marquez - 03/23/2025 10:45 AM CDT Patient scheduled for surgery on 04/08. Will leave a surgery packet for him to turkey picker on 03/26 when he comes in for his MRSA swab to the [facility]. Luli Marquez 10:46 AM 03/23/2025 * [...] Info) Description 06/23/2025 10:45 AM CDT Appointment [facility] [place] [address] [place] [address] Brian Pan MD [address] [place], [place] [phone] documented as of this encounter Goals Goal [...] documented as of this encounter Care Teams Drawing Tender Relationship Specialty Start Date End Date Romulo Zimmer MD [address] [place] [address] PCP - General Family Practice 04/15/24 documented as of this encounter
--- OUTSIDE RECORDS SUMMARY | 2025-06-08 23:51 | XMS_ITS | Encounter Summary ---
Author Organization [facility] Address [address], [place] [address] Care Team Providers Care Truant Officer Name Role Phone Romulo Zimmer MD Primary Care Provider [phone] Encounter Details Date Type Department Care Team (Late st Contact Info) Description 03/06/2016 Orders Only [facility] [address] [place] [phone] Darius Campos MD [address] [place], [place] [phone] Social History Tobacco Use Types Packs/Day Years [...] Info) Description 06/23/2025 10:45 AM CDT Appointment [facility] [address] [place] [phone] Brian Pan MD [address] [place] [address] documented as of this encounter Visit Diagnoses Not on filedocumented in this encounter Care Teams Truant Officer Relationship Specialty Start Date End Date Romulo Zimmer MD [address] [place] [address] PCP - General Family Practice 04/15/24 documented as of this encounter
--- OUTSIDE RECORDS SUMMARY | 2025-06-08 23:51 | XMS_ITS | Encounter Summary ---
Author Organization [employer] [employer] Address [address] [place] [address] Care Team Providers Care Senior Technical Manager Name Role Phone Romulo Zimmer MD Primary Care Provider [phone] Reason for Visit * Reason Comments Paperwork Encounter Details Date Type Department Care Team (Late st Contact Info) Description 04/07/2025 Telephone [facility] [place] [address] [place] [id number] Brian Pan MD [address] [place] [phone] Paperwork Social History Tobacco Use Types Packs/Day [...] No 04/08/2025 Housing Stability Vital Sign Answer Maunel e Recorded In the last 12 months, was t here a time when you were not able to pay the mortgage or rent on time? No 04/08/2025 Number of Times Moved in the Last Year Not on fi le 04/08/2025 At any time in the past 12 m [facility], were you homeless or living [...] 03/30/25 they were going to send one [Silk Blocker/Nature Photographer: If patient would like this sent anywhere other than to themselves, we need them to sign a Release of Information. Does patient have a current release of information on file?] No If we are unable to reach you can we leave a detailed message on your voicemail? Yes If we are unable to reach you can we send you a message in [facility]? No [Silk Blocker/Nature Photographer: We will complete this as soon as possible, but it may take up to 1-2 business days to complete.] documented in this encounter Plan of Treatment Upcoming Encounters Date Type Department Care Team (Late st Contact Info) Description 06/23/2025 10:[address] [facility] Orthopedic [address] [address] Brian Pan MD [address] [place] [address] documented as of this encounter Goals Goal [...] documented as of this encounter Care Teams Senior Technical Manager Relationship Specialty Start Date End Date Romulo Zimmer MD [address] [place] [address] PCP - General Family Practice 04/15/24 documented as of this encounter
--- OUTSIDE RECORDS SUMMARY | 2025-06-08 23:51 | XMS_ITS | Clinical Summary ---
Author Organization [facility] Address [address] [place] [address] Care Team Providers Care Balling Machine Operator Name Role Phone Romulo Zimmer MD Primary Care Provider [phone] Source Comments You are receiving this document as you are listed as the primary care provider,follow-up provider, or the patient has been referred to you for consultation.This is in compliance with the Medicare and[facility] EHR Incentive Program,which states Providers who transition their patient to another setting of careor provider of care or refers their patient to another provider of care shouldprovide summary care record for each transition of care or referral. [employer] Allergies No known active allergies Medications atorvastatin (LIPITOR) 40 MG tablet Take 1 Tablet (40 mg) by mouth daily. Active lisinopril-hyd roCHLOROthiazi de (PRINZIDE) 20-12.5 MG tablet Take 1 Tablet by mouth daily. 12/07/19 21 Active multivitamin (THERAGRAN) tablet Take 1 Tablet by mouth daily. Active amLODIPine (NORVASC) 5 MG tabletIndicati ons:Hypertensi on Take 1 Tablet (5 mg) by mouth daily. Per patient report Indications: High Blood Pressure 04/09/20 25 Active Meloxicam (MOBIC) 15 MG tablet Take 1 Tablet (15 mg) by mouth daily. 03/04/20 25 025 Discontinued aspirin EC 81 MG enteric coated tabletIndicati ons:thrombosis prevention following orthopedic surgery Take 2 Tablets (162 mg) by mouth daily for 42 days. If on previous aspirin, resume previous aspirin dosing after 42 days. Indications: thrombosis prevention following orthopedic surgery 84 Tablet 1:09 PM CDT 04/08/20 25 025 Active Problems Problem Noted Date Diagnosed Date History of total bilateral knee replacement 12/2024 Overview (04/08/2025): L TKA 12/12/20, R TKA 09/14/24. Both by Dr. Campos with [facility]. Class 1 obesity with serious comorbidity and body mass index (BMI) of 34.0 to 34.9 in adult 04/08/2025 Status post total replacement of left hip 2024 Overview (04/08/2025): Anterior L DEEJAY for femoral head subchondral fractures as well as to acetabulum. By Dr. Pan at [facility]. 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 Overview (04/08/2025): Colonoscopy 06/2023 4-TA, repeat in 5 years Essential hypertension 01/04/2007 Pure hypercholesterolemia 01/04/2007 IFG (impaired fasting glucose) Dysthymia Encounters Date Type Department Care Team Description 05/26/2025 10:20 AM CDT Office Visit [facility] [place] [address] [place] [address] Lizzy Crews PA-C S/P total left hip arthroplasty (Primary Dx) 05/26/2025 9:45 AM CDT Ancillary Procedure [facility] [address] [place] [address] Lizzy Crews PA-C S/P total left hip arthroplasty 05/10/2025 Telephone [facility] [place] [address] [place] [address] Brian Pan MD AFTERCARE, POST-OP CHECK; DISLOCATION, HIP 05/09/2025 12:05 AM CDT Ancillary Procedure Rad[facility] [address] [place] [address] Provider, Foreign Images 05/09/2025 Ancillary Procedure [facility] [address] [place] [address] Provider, Foreign Images 04/23/2025 10:15 AM CDT Office Visit [facility] at [address] [address] Chino Borges OA S/P total left hip arthroplasty (Primary Dx); Postop check 04/23/2025 10:10 AM CDT Ancillary Procedure [facility] Radiology X-ray [address] [place] [address] Brian Pan MD S/P total left hip arthroplasty 04/12/2025 Telephone [facility] at [address] [address] Brian Pan MD Post-Op Follow Up Call 04/08/2025 9:20 AM CDT Anesthesia Event [facility] [address] [place] [address] Kan Guzman MD Violante, Edward V, MD 04/08/2025 8:30 AM CDT - 04/08/2025 11:05 AM CDT Surgery [facility] [address] [place] [address] Brian Pan MD ANTERIOR TOTAL HIP JOINT REPLACEMENT 04/08/2025 6:35 AM CDT - 04/09/2025 2:12 PM CDT Hospital Encounter [facility] [address] [place] [address] Brian Pan MD Pain (Primary Dx) Discharge Disposition: Home 04/08/2025 Orders Only HIM DEPARTMENT ProviderMala MD 04/07/2025 Telephone [facility] [place] [address] Brian Pan MD Paperwork 04/05/2025 Notes/Orders [facility] Orthopedic [address] [address] Brian Pan MD Hip pain, unspecified laterality (Primary Dx) 03/30/2025 2:00 PM CDT Phone Visit [facility] at [address] [address] Nurse, [id number] Ortho Encounter for education (Primary Dx) 03/29/2025 Telephone [facility] at [address] [address] Brian Pan MD Surgery Questions 03/26/2025 10:00 AM CDT Nursing Visit [address] [address] Nurse, [facility] Screening examination for infectious disease 03/23/2025 Notes/Orders [facility] Orthopedic [address] [address] Luli Marquez Screening examination for infectious disease (Primary Dx) 03/22/2025 Notes/Orders [facility] at [address] [address] Lizzy Crews PA-C Closed fracture of head of left femur, initial encounter (HRC) (Primary Dx) 03/22/2025 Telephone [facility] Orthopedic [address] [address] Brian Pan MD Surgery 03/17/2025 9:00 AM CDT Office Visit [address] [address] Brian Pan MD Pain of left hip (Primary Dx) 03/11/2025 3:10 PM CDT Office Visit [facility] [place] [address] [place] [address] Cyril Arreguin MD Subchondral insufficiency fracture of condyle of left femur, initial encounter (HRC) (Primary Dx); Left hip pain 03/11/2025 12:20 PM CDT Ancillary Procedure [facility] MRI [address] [place] [address] Aniya Cardona, Left hip pain from Last 3 Months Family History Medical [...] Recorded In the past 12 months has [facility] [employer], gas, oil, or water [employer] threatened to shut off services in your [...] any time in the past 12 m [facility], were you homeless or [...] Info) Description 06/23/2025 10:45 AM CDT Appointment [facility] [place] [address] [place], [place] [address] Brian Pan MD [address] [place], [place] [phone] Health Maintenance Due Date Last Done Comments [...] Carlos [employer] Medical Devices Implanted Type Area Advertising Sales Assistant Device Identifier Shelf Expiration Date Model / Serial / Lot Manuelito Bone Biomet R 1x40 - [id number] Implanted:Qty: 1 on 12/12/2020 by Darius Campos MD at [facility] DEVICE Left: [employer] 12/04/2024 [id number] / 0 / [id number] Comp Fem Ps Ccr Ps Std Sz11 Lt - [id number] Implanted:Qty: 1 on 12/12/2020 by Darius Campos MD at [facility] DEVICE Left: [employer] 09/05/2029 [id number] / 0 / [id number] Patella All Poly Ply 38mm - [id number] Implanted:Qty: 1 on 12/12/2020 by Darius Campos MD at [facility] DEVICE Left: [employer] 06/06/2028 [id number] / 0 / [id number] Stem Tib 5deg Szh Lt - [id number] Implanted:Qty: 1 on 12/12/2020 by Darius Campos MD at [facility] DEVICE Left: [employer] 07/06/2030 [id number] / 0 / [id number] Asf Ps Ve 10mm 1012 Gh Lt - [id number] Implanted:Qty: 1 on 12/12/2020 by Darius Campos MD at [facility] DEVICE Left: [employer] 04/18/2025 [id number] / 0 / [id number] Psn Asf Ps Ply 10 Rt - [id number] Implanted:Qty: 1 on 09/14/2024 by Darius Campos MD at [facility] DEVICE Right: [employer] 10/10/2028 [id number] / 0 / [id number] Maneulito Bone Biomet R 1x40 - [id number] Implanted:Qty: 2 on 09/14/2024 by Darius Campos MD at [facility] DEVICE Right: [employer] 11/06/2026 [id number] / 0 / [id number] Patella All Poly Ply 38mm - [id number] Implanted:Qty: 1 on 09/14/2024 by Darius Campos MD at [facility] DEVICE Right: [employer] 08/04/2029 [id number] / 0 / [id number] Comp Fem Ps Ccr Ps Std Sz10 Rt - [id number] Implanted:Qty: 1 on 09/14/2024 by Darius Campos MD at [facility] DEVICE Right: [employer] 06/01/2034 [id number] / 0 / [id number] Stem Tib 5deg Szj Rt - [id number] Implanted:Qty: 1 on 09/14/2024 by Darius Campos MD at [facility] DEVICE Right: [employer] 02/03/2029 [id number] / 0 / [id number] Shell Acet [employer]7 [employer] 56f - [id number] Implanted:Qty: 1 on 04/08/2025 by Brian Pan MD at [facility] DEVICE Left: HIP [employer] - Orthopedics 12/25/2034 [id number] / / [id number] Scr Sftp 6.5x25 - [id number] Implanted:Qty: 1 on 04/08/2025 by Brian Pan MD at [facility] DEVICE Left: HIP [employer] 12/07/2034 [id number] / / [id number] Liner G7 Neut Lngvty 36mm F - [id number] Implanted:Qty: 1 on 04/08/2025 by Brian Pan MD at [facility] DEVICE Left: HIP [employer] - Orthopedics 12/04/2029 [id number] / / [id number] Hd Fem Cer 09/19 36mm +3.5 - [id number] Implanted:Qty: 1 on 04/08/2025 by Brian Pan MD at [facility] DEVICE Left: HIP [employer] 01/20/2035 [id number] / / [id number] Z1 Hip System, Size 5, Collared Cementless High Offset Femoral Stem Implanted:Qty: 1 on 04/08/2025 by Brian Pan MD at [facility] Left: HIP [employer] - Orthopedics 11/30/2029 [id number] / / [id number] Description:Z1 HIP SYSTEM, S IZE 5, COLLARED CEMENTLESS HIGH OFFSET FEMORAL STEM Procedures Procedure Name Priority Date/Time Associated Diagnosis Comments XR PELVIS W LT LATERAL HIP Routine 05/26/2025 9:50 AM CDT S/P total left hip arthroplasty FOREIGN IMAGE(S) XR PELVIS AND HIP Routine 05/09/2025 12:05 AM CDT FOREIGN IMAGE(S) XR PELVIS AND HIP Routine 05/09/2025 12:00 AM CDT XR PELVIS W LT LATERAL [...] 03/11/2025 12:52 PM CDT Left hip pain from Last 3 Months Results * XR Pelvis W Lt Lateral Hip (05/26/2025 9:50 AM CDT) Only the most recent of3 resultswithin the time period is included. Anatomical Region Laterality Modality Pelvis, Hip Digital [...] resultswithin the time period is included. Pathologist [facility] Glucose, Whole Blood 131 70 - 180 mg/dL 04/09/2025 11:55 AM CDT [facility] Performing Location MT OB 04/09/2025 11:55 AM CDT [facility] Blood 04/09/2025 11:5 3 AM CDT 04/09/2025 11:55 AM CDT us Brian Pan MD LAB_1 Final Resu lt [facility] [address] * (ABNORMAL) Complete Blood Count-W/Diff (04/09/2025 10:21 AM CDT) [facility] WBC 10.2 3.5 - 10.5 x10(9)/L 04/09/2025 10:28 AM CDT [facility] RBC 4.22(L) 4.32 - 5.72 x10(12)/L 04/09/2025 10:28 AM CDT [facility] Hemoglobin 13.6 13.5 - 17.5 g/dL 04/09/2025 10:28 AM CDT [facility] HCT 39.4 38.8 - 50.0 % 04/09/2025 10:28 AM CDT [facility] MCV 93.4 80.0 - 100.0 fL 04/09/2025 10:28 AM CDT [facility] MCH 32.2 27.6 - 33.3 pg 04/09/2025 10:28 AM CDT [facility] MCHC 34.5 31.5 - 35.2 g/dL 04/09/2025 10:28 AM CDT [facility] RDW 13.3 11.9 - 15.5 % 04/09/2025 10:28 AM CDT [facility] Platelets 153 150 - 450 x10(9)/L 04/09/2025 10:28 AM CDT [facility] Automated NRBC 0 <=0 /100 WBC 04/09/2025 10:28 AM CDT [facility] Neutrophil Absolute 8.4(H) 1.7 - 7.0 10(9)/L 04/09/2025 10:28 AM CDT [facility] Lymphocyte Absolute 0.5(L) 1.0 - 4.8 10(9)/L 04/09/2025 10:28 AM CDT [facility] Monocyte Absolute 1.2(H) 0.2 - 0.9 10(9)/L 04/09/2025 10:28 AM CDT [facility] Eosinophil Absolute 0.0 0.0 - 0.5 10(9)/L 04/09/2025 10:28 AM CDT [facility] Basophil Absolute 0.0 0.0 - 0.3 10(9)/L 04/09/2025 10:28 AM CDT [facility] Immature Granulocyte % 0.3 0.0 - 0.5 % 04/09/2025 10:28 AM CDT [facility] Blood Venipuncture / Unknown 04/09/2025 10:21 AM CDT 04/09/2025 10:26 AM CDT us Jeanie Barboza APRN, SOCIAL WORK LECTURER LAB_1 Final Result [facility] [address] [place] [address], [facility] * (ABNORMAL) Basic Metabolic Panel (IN AM) (04/09/2025 10:21 AM CDT) Sodium 137 136 - 145 mmol/L 04/09/2025 11:01 AM CDT [facility] Potassium 4.7 3.5 - 5.1 mmol/L 04/09/2025 11:01 AM CDT [facility] Chloride 102 98 - 109 mmol/L 04/09/2025 11:01 AM CDT [facility] CO2 27 20 - 29 mmol/L 04/09/2025 11:01 AM CDT [facility] Anion Gap 8 6 - 16 mmol/L 04/09/2025 11:01 AM CDT [facility] Calcium 8.9 8.4 - 10.4 mg/dL 04/09/2025 11:01 AM CDT [facility] BUN 29(H) 7 - 26 mg/dL 04/09/2025 11:01 AM CDT [facility] Creatinine 0.86 0.73 - 1.18 mg/dL 04/09/2025 11:01 AM CDT [facility] Glucose 129(H) 70 - 100 mg/dL 04/09/2025 11:01 AM CDT [facility] Comment:The given reference range is for the fasting state. Non-fasting reference range for glucose is 70 - 180 mg/dL. GFR, Estimated >60 >60 mL/min/1.7 3m2 04/09/2025 11:01 AM CDT [facility] Blood Venipuncture / Unknown 04/09/2025 10:21 AM CDT 04/09/2025 10:26 AM CDT Jeanie Barboza APRN, SOCIAL WORK LECTURER LAB_1 Final Result Performing Organization Address [facility] de Phone Number [facility] [address] [place] [address] * Magnesium (IN AM) (04/09/2025 10:21 AM CDT) Magnesium 1.6 1.6 - 2.6 mg/dL 04/09/2025 11:01 AM CDT [facility] Blood Venipuncture / Unknown 04/09/2025 10:21 AM CDT 04/09/2025 10:26 AM CDT Jeanie Barboza SUPERVISOR DRY PASTE, SOCIAL WORK LECTURER LAB_1 Final Result Performing Organization Address [facility] de Phone Number [facility] [address] [place] [address] * Phosphorus (IN AM) (04/09/2025 10:21 AM CDT) Phosphorus 4.4 2.3 - 4.7 mg/dL 04/09/2025 11:01 AM CDT [facility] Blood Venipuncture / Unknown 04/09/2025 10:21 AM CDT 04/09/2025 10:26 AM CDT Jeanie Barboza APRN, SOCIAL WORK LECTURER LAB_1 Final Result Performing Organization Address [facility]/ZIP Co de Phone Number [facility] [address] [place] [address], [facility] * FL C Arm (04/08/2025 11:07 AM CDT) Anatomical Region Laterality Modality Radiographic Nadia ging Narrative 04/08/2025 11:08 AM CDT These images were obtained during a surgical procedure. us Brian Pan MD RAD FL Final Resu lt * SPINAL BLOCK (04/08/2025 9:42 AM CDT) Narrative EXTERNAL RESULTS - 04/08/2025 9:42 AM CDT Wanda Kidd, SUPERVISOR DRY PASTE, SENIOR ENGINEERING TECH 04/08/2025 9:44 AM Spinal Block Performed by: [...] at L2/3 and L3/4) Redirects: 3 Monitoring: order processing specialist and continuous pulse ox Paresthesias: No Events: None Complications: none Pt tolerated procedure well Notes: Signed by MD Kelsea Medications from procedure kit: lidocaine PF 1 % injection - Subcutaneous 5 mL - 04/08/2025 9:32:00 AM BUPivacaine-dextrose 0.75-8.25% intrathecal injection - Intrathecal 1.6 mL - 04/08/2025 9:40:00 AM us Ar Theodore MD ANESTHESIA/AR Final Resu lt Performing Organization Address [facility] Co de Phone Number EXTERNAL RESULTS * ECG 12 Lead Inpatient (04/08/2025 7:42 AM CDT) Ventricular Rate 57 BPM [facility] Atrial Rate 57 BPM [facility] P-R Interval 192 ms [facility] QRS Duration 160 ms [facility] QT 450 ms M[facility] QTC 438 ms MUSE [facility] P [place] 47 degrees MUSE GHP R [place] -49 degrees MUSE GHP T [place] 13 degrees MUSE GHP 04/08/2025 7:42 AM [...] MD PN ECG ORDERABLES Final Re sult [facility] [address] [place] [address] * Draw & Hold - Inpatient Only (04/08/2025 7:14 AM CDT) [facility] BB DRAW AND HOLD Received in BB 04/08/2025 7:37 AM CDT [facility] Blood Venipuncture / Unknown 04/08/2025 7:14 AM CDT 04/08/2025 7:24 AM CDT Brian Pan MD LAB_1 Final Resu lt [facility] [address] [place], [place] [address] * Hemoglobin for all patients that have a Draw and Hold, Type and Screen, or Type and Cross ordered (04/08/2025 7:14 AM CDT) [facility] Hemoglobin 16.0 13.5 - 17.5 g/dL 04/08/2025 7:28 AM CDT [facility] Blood Venipuncture / Unknown 04/08/2025 7:14 AM CDT 04/08/2025 7:24 AM CDT Brian Pan MD LAB_1 Final Resu lt Performing Organization Address City/[facility]/ZIP Co de Phone Number [facility] [address] * (ABNORMAL) Hgb A1C (04/08/2025 7:14 AM CDT) Hemoglobin A1C 6.5(H) <=5.6 % 04/08/2025 12:16 PM CDT [facility] Estimated Average Glucose (Calc) 140 < 117 mg/dL 04/08/2025 12:16 PM CDT [facility] Comment:Estimated average gl ucose (eAG) converts A1c into glucose units (mg/dL) and estimates average glucose over the past approximately 3 months. The eAG reference interval (<117 mg/dL) corresponds to an A1c of <5.7%. Blood Venipuncture / Unknown 04/08/2025 7:14 AM CDT 04/08/2025 7:24 AM CDT [facility] - 04/08/2025 12:16 PM CDT For patients not previously diagnosed with diabetes: 5.7-6.4%: Increased risk for diabetes 6.5% and greater: Diagnostic for diabetes For patients diagnosed with diabetes: <8.0%: Goal of therapy for ages 18-75 Clinicians may recommend a higher or lower goal for specific individuals. Brian Pan MD LAB_1 Final Resu lt Performing Organization Address City/[facility]/ZIP Co de Phone Number [facility] [id number] [place] [address] * POTASSIUM (04/08/2025 7:14 AM CDT) Potassium 4.2 3.5 - 5.1 mmol/L 04/08/2025 7:44 AM CDT [facility] Blood Venipuncture / Unknown 04/08/2025 7:14 AM CDT 04/08/2025 7:24 AM CDT Brian Pan MD LAB_1 Final Resu lt Performing Organization Address [facility]/ZIP Co de Phone Number [facility] [address] [place], [place] [address] * EKG (04/08/2025) us Interface Provider MD EKG Final Resu lt * MRSA/MSSA Pre-Op Culture (Nares, left & right) (03/26/2025 9:15 AM CDT) Staph aureus Culture (SACUL) No Staphylococcus aureus Isolated 03/27/2025 4:[address] [facility] Swab (Source Required) ENTIRE ANTERIOR NARIS / Unknown Non-blood Collection / Unknown 03/26/2025 9:15 AM CDT 03/26/2025 9:20 AM CDT Brian Pan MD LAB_1 Final Resu Performing Organization Address [facility]/ZIP Co de Phone Number [facility] [address] [place] [address], [facility] * MR Hip Lt WO IV [...] ET PROE LEFT HIP REPLACEMENT EDUCATION [place] [address] [place] [address] MEDICARE SUPPLEMENT MEDICARE MEDICARE SUPPLEMENT MEDICARE Advance Directives Documents on File Type Date Recorded Patient Foreign Clerk Expl anation HEALTHCARE DIRECTIVE 09/15/2019 [facility] ARE DIRECTIVE * Full Code (Latest Code Status on File) Date Activated Date Inactivated Comments 04/08/2025 1:00 PM 04/09/2025 4:12 PM * Full Code Date Activated Date Inactivated Comments 09/14/2024 10:17 AM 09/14/2024 1:46 PM * Full Code Date Activated Date Inactivated Comments 12/12/2020 2:51 PM 12/12/2020 8:21 PM Full code in e ffect for 30 days Care Teams Balling Machine Operator Relationship Specialty Start Date End Date Romulo Zimmer [place] [address] PCP - General Family Practice 04/15/24
--- OUTSIDE RECORDS SUMMARY | 2025-06-08 23:51 | XMS_ITS | Encounter Summary ---
Author Organization [facility] [facility] Address [address], [place] [address] Care Team Providers Care Automobile Mechanic Name Role Phone Romulo Zimmer MD Primary Care Provider [phone] Reason for Visit * Reason Comments AFTERCARE, POST-OP CHECK DISLOCATION, HIP Encounter Details Date Type Department Care Team (Late st Contact Info) Description 05/10/2025 Telephone [facility] [place] [address] [place] [phone] Brian Pan MD [address] [place] [address] [phone] AFTERCARE, POST-OP CHECK; DISLOCATION, HIP Social History Tobacco Use Types Packs/Day Years Used Date Smoking Tobacco: Former Smokeless Tobacco: Never Comments:Quit smoking: Alcohol Use Standard Drinks/Week Comments Never 0 (1 standard drink = 0.6 oz pur e alcohol) [facility] Utilities Answer Date Recorded In the past 12 months has e electric, gas, oil, or water [employer] threatened to shut off services in your [...] any time in the past 12 m [facility], were you homeless or living in a group home (including now)? No 04/08/2025 Sex and Gender Information Value Date Recorded Sex Assigned at Not on file Legal Sex Male 11:13 PM CDT Gender Identity Not on file Sexual Orientation Not on file documented as of this encounter Nursing Notes * Darlene Daly RN - 05/19/2025 11:38 AM CDT Received message from imaging management that patient will hand carry a CD with imaging to appointment * Darlene Daly RN - 05/18/2025 1:16 PM CDT Imaging requested through PN imaging request form online * Soumya Crespo RN - 05/14/2025 9:22 AM CDT DATE OF OPERATION: 04/08/25 SURGEON:Brian Pan MD PROCEDURE PERFORMED: Left anterior total hip arthroplasty Patient and I spoke on the phone this morning after he got up from a stool and dislocated his surgical hip on Saturday05/09/2025. He was taken to the [place] ER where they reduced the hip and took films prior and after the reduction. Patient states he's still sore and reverted to using a cane once again. The written reports are in EPIC and I'll retrieve the images for his upcoming appointment with Lizzy. Patient states that he is fine to wait to be seen until the scheduled follow up but wanted the team to be aware. Patient still doing PT once weekly and he's doing his exercises. Future Appointments Provider Department Center 05/26/2025 10:20 AM (Arrive by 10:05 AM) Lizzy Crews PA-C [facility] * Nydia Lynch - 05/14/2025 9:16 AM CDT Pt.called to check if received his message below.Please call to advise. * Adrianne Tobin - 05/10/2025 9:39 AM CDT GENERAL QUESTIONS How may we help you today? Pt is asking to speak with [facility] care team Describe your symptoms/concerns: pt said he had accident while getting up off of stool, he said hipjoint came out of socket. He had to call ambulance at it took him to [place] [facility] where they put hip joint back in socket and took images and said hardware was all good but pt should check up with surgeon too. When did the issue start: yesterday- Have you been seen for this recently?: Left anterior DEEJAY DOS 04/08 Dr. Pan If we are unable to reach you can we leave a detailed message on your voicemail? Yes If we are unable to reach you can we send you a message in [employer]? No [Tool Grinder Operator Surface/Compensation Manager: Relay to patient; We make every effort to get back to you sameday, however it may take 1-2 business days depending on the nature of the communication.] documented in this encounter Plan of Treatment Upcoming Encounters Date Type Department Care Team (Late st Contact Info) Description 06/23/2025 10:45 AM CDT Appointment [facility] [place] [address] [place] [address] Brian Pan MD [address] [place], [place] [phone] documented as of this encounter Goals Goal [...] documented as of this encounter Care Teams Automobile Mechanic Relationship Specialty Start Date End Date Romulo Zimmer MD [address] [place] [address] PCP - General Family Practice 04/15/24 documented as of this encounter
[2025-06-08 23:52] VITALS: O2SAT 96
--- OUTSIDE RECORDS SUMMARY | 2025-06-08 23:52 | XMS_ITS | Clinical Summary ---
Author Organization [employer] [facility] Address [address] [place] [address] Care Team Providers Care Sock Drier Name Role Phone Romulo Zimmer MD Primary Care Provider [phone] Allergies No known active allergies Medications ascorbic acid, vitamin C, (Vitamin C) 1,000 mg tablet Take 1,000 mg by mouth once daily. Active cholecalciferol (Vitamin D-3) 2,000 unit capsule Take 2,000 units by mouth once daily. Active VITAMIN E ACETATE ORAL Take 4,000 units by mouth once daily. Active ZINC CITRATE ORAL Take by mouth. Three times a week (unsure of dose) Active lisinopril-hydrochloroth iazide 20-12.5 mg tablet (PRINZIDE)Indications:Es sential hypertension Take 1 Tablet by mouth once daily. 90 Tablet 4 04/21/20 25 Active atorvastatin (LIPITOR) 40 mg tabletIndications:Pure hypercholesterolemia Take 1 Tablet (40 mg) by mouth at bedtime. 90 Tablet 4 04/21/20 25 Active amLODIPine (NORVASC) 5 mg tabletIndications:Essent ial hypertension Take 1 Tablet (5 mg) by mouth once daily. 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/04/2007 Overview (06/17/2023): Colonoscopy 06/2023 4-TA, repeat in 5 years Encounters Date Type Department Care Team Description 05/09/2025 Orders Only [facility] Scanner 1 scan: (1-Ord) [facility], XR HIP LT MIN 2V, 05/09/2025 04/21/2025 9:15 AM CDT Office Visit [facility] [address] [facility] [place] [address] Romulo Zimmer MD Medicare ANNUAL (subsequent) Visit (75 Year Old Male ) 04/21/2025 Travel 04/17/2025 Travel 04/02/2025 Telephone [facility] [address] [facility] [place] [address] Romulo Zimmer MD Lab (Lab orders needed) 03/23/2025 2:45 PM CDT Office Visit [facility] [address] [facility] [address] Romulo Zimmer MD Preoperative Exam (Left hip surgery 04/08/2025) 03/23/2025 Travel 03/23/2025 Telephone [facility] [address] [place] [place] [address] Romulo Zimmer MD Questions (recommendation) from Last 3 Months Immunizations Immunization Administration Dates Next Due COVID-19 VACCINE COMIRNATY (PFIZER-BIONTECH 30MCG/0.3ML) 12YO+ PFS 01/08/2024 COVID-19 vaccine (Pfizer-Bio NTech 30mcg/0.3mL) 12YO+ WOLFGANG-SUCROSE PF, MDV 04/02/2022 COVID-19 vaccine (Pfizer-Bio NTech 30mcg/0.3mL) PF, MDV 12/20/2020,11/29/2020 Influenza RIV4 (Age 18+ Year s) [...] on file Legal Sex Male 5:24 AM RETAIL CLERK Gender Identity Not on file Sexual Orientation [...] st Contact Info) Description 08/10/2025 7:30 AM RETAIL CLERK Orders Only [facility] [address] [place] [address] [place], [place] 08/13/2025 10:30 AM RETAIL CLERK Office Visit [facility] [address] [place] [address] Romulo Zimmer MD [address] [place] [address] Health Maintenance Due Date Last Done Comments [...] this topic Medical Devices Implanted Type Area Board Hammer Operator Device Identifier Shelf Expiration Date Model / Serial / Lot Infrapubic Zero Degree Angle Cylinder Set W/Pump 22cm Implanted:Qty: 1 on 02/20/2022 by Torres Aguilera MD at [facility] N/A: Penis 12/11/2026 [id number] / / [id number] Description:INFRAPUBIC ZERO DEGREE ANGLE CYLINDER SET W/PUMP 22CM Cl Jovista 125cc Implanted:Qty: 1 on 02/20/2022 by Torres Aguilera MD at [facility] N/A: Penis 11/13/2026 [id number] / / [id number] Description:CL RESERVOIR 125 CC Kit Asbly Std Implnt Penile Titan Implanted:Qty: 1 on 02/20/2022 by Torres Aguilera MD at [facility] N/A: Penis 10/11/2026 [id number] / / [id number] Description:Kit Asbly Std Im plnt Penile Titan Procedures Procedure Name Priority Date/Time Associated Diagnosis Comments SCAN-RADIOLOGY REPORT 05/09/2025 12:00 AM CDT LIPID PANEL W REFLEX MEASURED LDL Routine 03/23/2025 4:10 PM CDT Pure hypercholesterolemia BASIC METABOLIC PANEL Routine 03/23/2025 4:10 PM CDT Unspecified essential hypertension HEMOGLOBIN Routine 03/23/2025 4:08 PM CDT Unspecified essential hypertension ANTI HCV Routine 02/01/2022 8:05 AM CDT Need for hepatitis C screening test from Last 3 Months or Most Recently Relevant to Health Maintenance Results * SCAN-RADIOLOGY REPORT (05/09/2025 12:00 AM CDT) Anatomical Region Laterality Modality Other us Scanner OTHER Final Result * LIPID PANEL W REFLEX MEASURED LDL (03/23/2025 4:10 PM CDT) CHOLESTEROL, TOTAL 168 <200 mg/dL [facility] HDL CHOLESTEROL 58 > OR = 40 mg/dL [facility] TRIGLYCERIDES 87 <150 mg/dL [facility] LDL-CHOLESTEROL 92 mg/dL (calc) [facility] Comment: Reference range: <100 Desirable range <100 mg/dL for primary prevention; <70 mg/dL for patients with CHD or diabetic patients with > or = 2 CHD risk factors. LDL-C is now calculated using the Jarred-Dirk calculation, which is a validated novel method providing better accuracy than the Friedewald equation in the estimation of LDL-C. Jarred TILLMAN et al. CAR. 2013;310(19): 3368-8432 (http://education.POPRAGEOUS.UPEK/faq/SYO120) CHOL/HDLC RATIO 2.9 <5.0 (calc) [facility] NON HDL CHOLESTEROL 110 <130 mg/dL (calc) [facility] Comment: For patients with diabetes plus 1 major ASCVD risk factor, treating to a non-HDL-C goal of <100 mg/dL (LDL-C of <70 mg/dL) is considered a therapeutic option. Blood BLOOD SPECIMEN / Unknown 03/23/2025 4:10 PM CDT 03/23/2025 4:10 PM CDT Romulo Zimmer MD CHEMISTRY Final Resu lt Performing Organization Address [facility]/ZIP Co de Phone Number [facility] [employer] [facility] [address] [place] [address], [facility] [address] [place] [address] * BASIC METABOLIC PANEL (03/23/2025 4:10 PM CDT) Pathologist [facility] GLUCOSE 98 65 - 99 mg/dL [facility] [...] CHEMISTRY Final Resu lt Performing Organization Address [facility]/ZIP Co de Phone Number [facility] [employer] [facility] [address] [place] [address], [place] [phone] [facility] [address] [place] [address] * HEMOGLOBIN (03/23/2025 4:08 PM CDT) [facility] HEMOGLOBIN 15.4 13.2 - 17.1 g/dL [facility] Blood BLOOD SPECIMEN / Unknown 03/23/2025 4:08 PM CDT 03/23/2025 4:09 PM CDT Romulo Zimmer MD HEMATOLOGY Final Resu lt [facility] [address] [place] [address], [facility] [address] [place] [address] * ANTI HCV (02/01/2022 8:05 AM CDT) [facility] HEPATITIS C ANTIBODY Non-React seth Non-React seth 02/01/2022 6:35 PM CDT [facility] Comment:Antibodies to HCV no t detected; does not exclude the possibility of exposure to HCV. Blood BLOOD SPECIMEN / Unknown Venipuncture / Unknown 02/01/2022 8:05 AM CDT 02/01/2022 8:11 AM CDT Romulo Zimmer MD SEND OUTS Final Resu lt [facility] [address] [place] [address], [place] from Last 3 Months or Most Recently Relevant to Health Maintenance Insurance MEDICARE PART A HB ONLY MEDICARE PART B HB ONLY MEDICARE PB ONLY [facility] [employer] on file Advance Directives Documents on File Type Date Recorded Patient Set Off Press Operator Expl anation Healthcare Directive 09/23/2019 12:00 AM 09/15/2019 * Full Code (Latest Code Status on File) Date Activated Date Inactivated Comments 02/20/2022 6:49 AM 02/20/2022 3:56 PM Question Answer Comments Code Status Discussion: Unable to Assess Preferences, Provider to review later Care Teams Sock Drier Relationship Specialty Start Date End Date Romulo Zimmer MD [address] [place] [address] PCP - General 10/11/06
[2025-06-08 23:53] VITALS: BP 154/90; PULSE 68; RESP 20; TEMP 36.9; O2SAT 94; BMI 35.2
[2025-06-09] VITALS (22 sets, daily range): BP systolic 106–166; BP diastolic 65–103; PULSE 60–73; RESP 9–25; O2SAT 93–97
--- OUTSIDE RECORDS SUMMARY | 2025-06-09 00:15 | XMS_ITS | Encounter Summary ---
Author Organization [facility] Address [address], [place] [address] Care Team Providers Care Vac Press Operator Name Role Phone Romulo Zimmer MD Primary Care Provider [phone] Reason for Visit * Reason Comments AFTERCARE, POST-OP CHECK DISLOCATION, HIP Encounter Details Date Type Department Care Team (Late st Contact Info) Description 05/10/2025 Telephone [facility] [place] [address] [place] [phone] Brian Pan MD [address] [place] [phone] AFTERCARE, POST-OP CHECK; DISLOCATION, HIP Social History Tobacco Use Types Packs/Day Years Used Date Smoking Tobacco: Former Smokeless Tobacco: Never Comments:Quit smoking: Alcohol Use Standard Drinks/Week Comments Never 0 (1 standard drink = 0.6 oz pur e alcohol) [facility] Utilities Answer Date Recorded In the past 12 months has e electric, gas, oil, or water [employer] threatened to shut off services in your [...] any time in the past 12 m [facility], were you homeless or living in a [...] on Saturday05/09/2025. He was taken to the [facility] where they reduced the hip and [...] AM) Lizzy Crews PA-C [facility] * Nydia Lynch - [...] call ambulance at it took him to [facility] where they put hip joint back [...] can we send you a message in [employer] Makeup[employer]Puzzlium? No [Director Patient/Pneumatic Tester Mechanic: Relay to patient; We make every effort to get back to you sameday, however it may take 1-2 business days depending on the nature of the communication.] documented in this encounter Plan of Treatment Upcoming Encounters Date Type Department Care Team (Late st Contact Info) Description 06/23/2025 10:45 AM CDT Appointment [facility] [address] [place] [address] Brian Pan MD [address] [place], [place] [phone] documented as of this encounter Goals Goal [...] documented as of this encounter Care Teams Vac Press Operator Relationship Specialty Start Date End Date Romulo Zimmer MD [address] [place] [address] PCP - General Family Practice 04/15/24 documented as of this encounter
--- OUTSIDE RECORDS SUMMARY | 2025-06-09 00:15 | XMS_ITS | Encounter Summary ---
Author Organization [employer] Address [address], [place] [address] Care Team Providers Care Jewel Hole Cornerer Name Role Phone Romulo Zimmer MD Primary Care Provider [phone] Reason for Visit * Reason Comments Surgery Encounter Details Date Type Department Care Team (Late st Contact Info) Description 03/22/2025 Telephone [facility] Orthopedic [facility] [address] [place] [address] Brian Pan MD [address] [place], [place] [address] Surgery Social History Tobacco Use Types Packs/Day [...] - 03/24/2025 3:14 PM CDT Packet at synthetic department supervisor desk for pickling machine operator. Luli Marquez 3:14 PM 03/24/2025 * Luli Marquez - 03/23/2025 10:45 AM CDT Patient scheduled for surgery on 04/08. Will leave a surgery packet for him to pickling machine operator on 03/26 when he comes in for his MRSA swab to [facility] [place] [facility]. Luli Marquez 10:46 AM 03/23/2025 * [...] Info) Description 06/23/2025 10:45 AM CDT Appointment [facility] [place] [address] [place] [address] Brian Pan MD [address] [place], [place] [phone] documented as of this encounter Goals Goal [...] documented as of this encounter Care Teams Jewel Hole Cornerer Relationship Specialty Start Date End Date Romulo Zimmer MD [address] [place] [address] PCP - General Family Practice 04/15/24 documented as of this encounter
--- OUTSIDE RECORDS SUMMARY | 2025-06-09 00:15 | XMS_ITS | Encounter Summary ---
Author Organization [facility] Address [address], [place] [address] Care Team Providers Care Foley Artist Name Role Phone Romulo Zimmer MD Primary Care Provider [phone] Encounter Details Date Type Department Care Team (Late st Contact Info) Description 03/06/2016 Orders Only [facility] [address] [place] [phone] Darius Campos MD [address] [place], [place] [phone] Social History Tobacco Use Types Packs/Day Years [...] Description 06/23/2025 10:45 AM CDT Appointment [facility] [address] [place] [address] Brian Pan MD [address] [place] [address] documented as of this encounter Visit Diagnoses Not on filedocumented in this encounter Care Teams Foley Artist Relationship Specialty Start Date End Date Romulo Zimmer MD [address] [place] [address] PCP - General Family Practice 04/15/24 documented as of this encounter
--- OUTSIDE RECORDS SUMMARY | 2025-06-09 00:15 | XMS_ITS | Encounter Summary ---
Author Organization [employer] Address [address] [place] [address] Care Team Providers Care Doll Wig Hackler Name Role Phone Romulo Zimmer MD Primary Care Provider [phone] Reason for Visit * Reason Comments Paperwork Encounter Details Date Type Department Care Team (Late st Contact Info) Description 04/07/2025 Telephone [facility] [place] [address] [place] [phone] Brian Pan MD [address] [place] [phone] Paperwork Social History Tobacco Use Types Packs/Day Years Used Date Smoking Tobacco: Former Smokeless Tobacco: Never Comments:Quit smoking: Alcohol Use Standard Drinks/Week Comments Never 0 (1 standard drink = 0.6 oz pur e alcohol) [facility] Utilities Answer Date Recorded In the [...] time in the past 12 m [facility], were you homeless or living in [...] 03/30/25 they were going to send one [Dry Cell Assembly Machine Tender/Test Deck Supervisor: If patient would like this sent anywhere other than to themselves, we need them to sign a Release of Information. Does patient have a current release of information on file?] No If we are unable to reach you can we leave a detailed message on your voicemail? Yes If we are unable to reach you can we send you a message in [employer]EX? No [Dry Cell Assembly Machine Tender/Test Deck Supervisor: We will complete this as soon as possible, but it may take up to 1-2 business days to complete.] documented in this encounter Plan of Treatment Upcoming Encounters Date Type Department Care Team (Late st Contact Info) Description 06/23/2025 10:45 AM CDT Appointment [facility] Orthopedic [address] [address] Brian Pan MD [address] [place] [address] documented as of this encounter Goals Goal [...] documented as of this encounter Care Teams Doll Wig Hackler Relationship Specialty Start Date End Date Romulo Zimmer MD [address] [place] [address] PCP - General Family Practice 04/15/24 documented as of this encounter
--- OUTSIDE RECORDS SUMMARY | 2025-06-09 00:15 | XMS_ITS | Clinical Summary ---
Author Organization [facility] Address [address] [place] [address] Care Team Providers Care Ranch Rider Name Role Phone Romulo Zimmer MD Primary Care Provider [phone] Source Comments You are receiving this document as you are listed as the primary care provider,follow-up provider, or the patient has been referred to you for consultation.This is in compliance with the Medicare and[place] Healthcarecaid EHR Incentive Program,which states Providers who transition their patient to another setting of careor provider of care or refers their patient to another provider of care shouldprovide summary care record for each transition of care or referral. [facility] Allergies No known active allergies Medications atorvastatin [...] TKA 09/14/24. Both by Dr. Campos with [facility]. Class 1 obesity with serious comorbidity and body mass index (BMI) of 34.0 to 34.9 in adult 04/08/2025 Status post total replacement of left hip 2024 Overview (04/08/2025): Anterior L DEEJAY for femoral head subchondral fractures as well as to acetabulum. By Dr. Pan at [facility]. 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 Overview (04/08/2025): Colonoscopy 06/2023 4-TA, repeat in 5 years Essential hypertension 01/04/2007 Pure hypercholesterolemia 01/04/2007 IFG (impaired fasting glucose) Dysthymia Encounters Date Type Department Care Team Description 05/26/2025 10:20 AM CDT Office Visit [facility] [place] [address] [place] [address] Lizzy Crews PA-C S/P total left hip arthroplasty (Primary Dx) 05/26/2025 9:45 AM CDT Ancillary Procedure [facility] [address] [place] [address] Lizzy Crews PA-C S/P total left hip arthroplasty 05/10/2025 Telephone [facility] at [place] [address] [place] [address] Brian Pan MD AFTERCARE, POST-OP CHECK; DISLOCATION, HIP 05/09/2025 12:05 AM CDT Ancillary Procedure [facility] [address] [place] [address] Provider, Foreign Images 05/09/2025 Ancillary Procedure [facility] [address] [place] [address] Provider, Foreign Images 04/23/2025 10:15 AM CDT Office Visit [facility] at [address] [address] Chino Borges OA S/P total left hip arthroplasty (Primary Dx); Postop check 04/23/2025 10:10 AM CDT Ancillary Procedure [facility] Radiology X-ray [address] [place] [address] Brian Pan MD S/P total left hip arthroplasty 04/12/2025 Telephone [facility] at [address] [address] Brian Pan MD Post-Op Follow Up Call 04/08/2025 9:20 AM CDT Anesthesia Event [facility] [address] [place] [address] Kan Guzman MD Violante, Edward V, MD 04/08/2025 8:30 AM CDT - 04/08/2025 11:05 AM CDT Surgery [facility] [address] [place] [address] Brian Pan MD ANTERIOR TOTAL HIP JOINT REPLACEMENT 04/08/2025 6:35 AM CDT - 04/09/2025 2:12 PM CDT Hospital Encounter [facility] [address] [place] [address] Brian Pan MD Pain (Primary Dx) Discharge Disposition: Home 04/08/2025 Orders Only [facility] DEPARTMENT ProviderMala MD 04/07/2025 Telephone [facility] [place] [address] Brian Pan MD Paperwork 04/05/2025 Notes/Orders [facility] Orthopedic [address] [address] Brian Pan MD Hip pain, unspecified laterality (Primary Dx) 03/30/2025 2:00 PM CDT Phone Visit [facility] at [address] [address] Nurse, [id number] Ortho Encounter for education (Primary Dx) 03/29/2025 Telephone [facility] at [address] [address] Brian Pan MD Surgery Questions 03/26/2025 10:00 AM CDT Nursing Visit [address] [place] [address] [address] Nurse, [facility] Screening examination for infectious disease 03/23/2025 Notes/Orders [facility] [address] [address] Luli Marquez Screening examination for infectious disease (Primary Dx) 03/22/2025 Notes/Orders [facility] at [address] [address] Lizzy Crews PA-C Closed fracture of head of left femur, initial encounter (HRC) (Primary Dx) 03/22/2025 Telephone [facility] [address] [address] Brian Pan MD Surgery 03/17/2025 9:00 AM CDT Office Visit [address] [place] [address] [address] Brian Pan MD Pain of left hip (Primary Dx) 03/11/2025 3:10 PM CDT Office Visit [facility] [place] [address] [place] [address] Cyril Arreguin MD Subchondral insufficiency fracture of condyle of left femur, initial encounter (HRC) (Primary Dx); Left hip pain 03/11/2025 12:20 PM CDT Ancillary Procedure [facility] [address] [place] [address] Aniya Cardona, Left hip pain from Last 3 Months Family History Medical History Relation Name Comments Asthma Father Abdominal Aortic Aneurysm Brother Relation Name Status Comments Father Brother Social History Tobacco Use Types Packs/Day Years Used Date Smoking Tobacco: Former Smokeless Tobacco: Never Comments:Quit smoking: Alcohol Use Standard Drinks/Week Comments Never 0 (1 standard drink = 0.6 oz pur e alcohol) [facility] Utilities Answer Date Recorded In the past 12 months has [facility] [employer], gas, oil, or water [employer] threatened to shut off services in your [...] any time in the past 12 m [facility], were you homeless or living [...] Info) Description 06/23/2025 10:45 AM CDT Appointment [facility] [place] [address] [place], [place] [address] Brian Pan MD [address] [place], [place] [address] Health Maintenance Due Date Last Done Comments [...] Carlos Macdonald Medical Devices Implanted Type Area Lumber Mover Device Identifier Shelf Expiration Date Model / Serial / Lot Manuelito Bone Biomet R 1x40 - [id number] Implanted:Qty: 1 on 12/12/2020 by Darius Campos MD at [facility] Left: K[employer]EE [employer] 12/04/2024 [id number] / 0 / [id number] Comp Fem Ps Ccr Ps Std Sz11 Lt - [id number] Implanted:Qty: 1 on 12/12/2020 by Darius Campos MD at [facility] Left: K[employer]EE [employer] 09/05/2029 [id number] / 0 / [id number] Patella All Poly Ply 38mm - [id number] Implanted:Qty: 1 on 12/12/2020 by Darius Campos MD at [facility] Left: [employer] 06/06/2028 [id number] / 0 / [id number] Stem Tib 5deg Szh Lt - [id number] Implanted:Qty: 1 on 12/12/2020 by Darius Campos MD at [facility] DEVICE Left: [employer] 07/06/2030 [id number] / 0 / [id number] Asf Ps Ve 10mm 1012 Gh Lt - [id number] Implanted:Qty: 1 on 12/12/2020 by Darius Campos MD at [facility] DEVICE Left: [employer] 04/18/2025 [id number] / 0 / [id number] Psn Asf Ps Ply 10 Rt - [id number] Implanted:Qty: 1 on 09/14/2024 by Darius Campos MD at [facility] Right: [employer] 10/10/2028 [id number] / 0 / [id number] Manuelito Bone Biomet R 1x40 - [id number] Implanted:Qty: 2 on 09/14/2024 by Darius Campos MD at [facility] DEVICE Right: [employer] 11/06/2026 [id number] / 0 / [id number] Patella All Poly Ply 38mm - [id number] Implanted:Qty: 1 on 09/14/2024 by Darius Campos MD at [facility]ICE Right: [employer] 08/04/2029 [id number] / 0 / [id number] Comp Fem Ps Ccr Ps Std Sz10 Rt - [id number] Implanted:Qty: 1 on 09/14/2024 by Darius Campos MD at [facility] DEVICE Right: [employer] 06/01/2034 [id number] / 0 / [id number] Stem Tib 5deg Szj Rt - [id number] Implanted:Qty: 1 on 09/14/2024 by Darius Campos MD at [facility] DEVICE Right: [employer] 02/03/2029 [id number] / 0 / [id number] Shell Acet [employer]7 [employer] 56f - [id number] Implanted:Qty: 1 on 04/08/2025 by Brian Pan MD at [facility] DEVICE Left: HIP [employer] - Orthopedics 12/25/2034 [id number] / / [id number] Scr Sftp 6.5x25 - [id number] Implanted:Qty: 1 on 04/08/2025 by Brian Pan MD at [facility] DEVICE Left: HIP [employer] 12/07/2034 [id number] / / [id number] Liner G7 Neut Lngvty 36mm F - [id number] Implanted:Qty: 1 on 04/08/2025 by Brian Pan MD at [facility] DEVICE Left: HIP [employer] - Orthopedics 12/04/2029 [id number] / / [id number] Hd Fem Cer 09/19 36mm +3.5 - [id number] Implanted:Qty: 1 on 04/08/2025 by Brian Pan MD at [facility] DEVICE Left: HIP [employer] 01/20/2035 [id number] / / [id number] Z1 Hip System, Size 5, Collared Cementless High Offset Femoral Stem Implanted:Qty: 1 on 04/08/2025 by Brian Pan MD at [facility] Left: HIP [employer] - Orthopedics 11/30/2029 [id number] / / [id number] Description:Z1 HIP SYSTEM, S IZE 5, COLLARED [...] resultswithin the time period is included. Pathologist [facility] Glucose, Whole Blood 131 70 - 180 mg/dL 04/09/2025 11:55 AM CDT [facility] Performing Location [place] OB 04/09/2025 11:55 AM CDT [facility] Blood 04/09/2025 11:5 3 AM CDT 04/09/2025 11:55 AM CDT us Brian Pan MD LAB_1 Final Resu lt [facility] [address] * (ABNORMAL) Complete Blood Count-W/Diff (04/09/2025 10:21 AM CDT) [facility] WBC 10.2 3.5 - 10.5 x10(9)/L 04/09/2025 10:28 AM CDT [facility] RBC 4.22(L) 4.32 - 5.72 x10(12)/L 04/09/2025 10:28 AM CDT [facility] Hemoglobin 13.6 13.5 - 17.5 g/dL 04/09/2025 10:28 AM CDT [facility] HCT 39.4 38.8 - 50.0 % 04/09/2025 10:28 AM CDT [facility] MCV 93.4 80.0 - 100.0 fL 04/09/2025 10:28 AM CDT [facility] MCH 32.2 27.6 - 33.3 pg 04/09/2025 10:28 AM CDT [facility] MCHC 34.5 31.5 - 35.2 g/dL 04/09/2025 10:28 AM CDT [facility] RDW 13.3 11.9 - 15.5 % 04/09/2025 10:28 AM CDT [facility] Platelets 153 150 - 450 x10(9)/L 04/09/2025 10:28 AM CDT [facility] Automated NRBC 0 <=0 /100 WBC 04/09/2025 10:28 AM CDT [facility] Neutrophil Absolute 8.4(H) 1.7 - 7.0 10(9)/L 04/09/2025 10:28 AM CDT [facility] Lymphocyte Absolute 0.5(L) 1.0 - 4.8 10(9)/L 04/09/2025 10:28 AM CDT [facility] Monocyte Absolute 1.2(H) 0.2 - 0.9 10(9)/L 04/09/2025 10:28 AM CDT [facility] Eosinophil Absolute 0.0 0.0 - 0.5 10(9)/L 04/09/2025 10:28 AM CDT [facility] Basophil Absolute 0.0 0.0 - 0.3 10(9)/L 04/09/2025 10:28 AM CDT [facility] Immature Granulocyte % 0.3 0.0 - 0.5 % 04/09/2025 10:28 AM CDT [facility] Blood Venipuncture / Unknown 04/09/2025 10:21 AM CDT 04/09/2025 10:26 AM CDT us Jeanie Barboza APRN, FLASH WELDER LAB_1 Final Result [facility] [address] [place] [address], [facility] * (ABNORMAL) Basic Metabolic Panel (IN AM) (04/09/2025 10:21 AM CDT) Sodium 137 136 - 145 mmol/L 04/09/2025 11:01 AM CDT [facility] Potassium 4.7 3.5 - 5.1 mmol/L 04/09/2025 11:01 AM CDT [facility] Chloride 102 98 - 109 mmol/L 04/09/2025 11:01 AM CDT [facility] CO2 27 20 - 29 mmol/L 04/09/2025 11:01 AM CDT [facility] Anion Gap 8 6 - 16 mmol/L 04/09/2025 11:01 AM CDT [facility] Calcium 8.9 8.4 - 10.4 mg/dL 04/09/2025 11:01 AM CDT [facility] BUN 29(H) 7 - 26 mg/dL 04/09/2025 11:01 AM CDT [facility] Creatinine 0.86 0.73 - 1.18 mg/dL 04/09/2025 11:01 AM CDT [facility] Glucose 129(H) 70 - 100 mg/dL 04/09/2025 11:01 AM CDT [facility] Comment:The given reference range is for the fasting state. Non-fasting reference range for glucose is 70 - 180 mg/dL. GFR, Estimated >60 >60 mL/min/1.7 3m2 04/09/2025 11:01 AM CDT [facility] Blood Venipuncture / Unknown 04/09/2025 10:21 AM CDT 04/09/2025 10:26 AM CDT Jeanie Barboza APRN, FLASH WELDER LAB_1 Final Result Performing Organization Address [facility] de Phone Number [facility] [address] [place] [address] * Magnesium (IN AM) (04/09/2025 10:21 AM CDT) Magnesium 1.6 1.6 - 2.6 mg/dL 04/09/2025 11:01 AM CDT [facility] Blood Venipuncture / Unknown 04/09/2025 10:21 AM CDT 04/09/2025 10:26 AM CDT Jeanie Barboza BEE WORKER, FLASH WELDER LAB_1 Final Result Performing Organization Address [facility] de Phone Number [facility] [address] [place] [address] * Phosphorus (IN AM) (04/09/2025 10:21 AM CDT) Phosphorus 4.4 2.3 - 4.7 mg/dL 04/09/2025 11:01 AM CDT [facility] Blood Venipuncture / Unknown 04/09/2025 10:21 AM CDT 04/09/2025 10:26 AM CDT Jeanie Barboza APRN, FLASH WELDER LAB_1 Final Result Performing Organization Address [facility]/ZIP Co de Phone Number [facility] [address] [place] [address], [facility] * FL C Arm (04/08/2025 11:07 AM CDT) Anatomical Region Laterality Modality Radiographic Nadia ging Narrative 04/08/2025 11:08 AM CDT These images were obtained during a surgical procedure. us Brian Pan MD RAD FL Final Resu lt * SPINAL BLOCK (04/08/2025 9:42 AM CDT) Narrative EXTERNAL RESULTS - 04/08/2025 9:42 AM CDT Wanda Kidd, BEE WORKER, POWER ENGINEER 04/08/2025 9:44 AM Spinal Block Performed by: [...] at L2/3 and L3/4) Redirects: 3 Monitoring: case monitor and continuous pulse ox Paresthesias: No Events: None Complications: none Pt tolerated procedure well Notes: Signed by MD Kelsea Medications from procedure kit: lidocaine PF 1 % injection - Subcutaneous 5 mL - 04/08/2025 9:32:00 AM BUPivacaine-dextrose 0.75-8.25% intrathecal injection - Intrathecal 1.6 mL - 04/08/2025 9:40:00 AM us Ar Theodore MD ANESTHESIA/AR Final Resu lt Performing Organization Address [facility] Co de Phone Number EXTERNAL RESULTS * ECG 12 Lead Inpatient (04/08/2025 7:42 AM CDT) Ventricular Rate 57 BPM [facility] Atrial Rate 57 BPM [facility] P-R Interval 192 ms MUSE [facility] QRS Duration 160 ms MUSE GHP QT 450 ms MUSE GHP QTC 438 ms MUSE GHP P [place] 47 degrees MUSE GHP R [place] -49 degrees MUSE GHP T [place] 13 degrees MUSE GHP 04/08/2025 7:42 AM [...] Re sult [facility] [address] [place] [address] * Draw & Hold - Inpatient Only (04/08/2025 7:14 AM CDT) [facility] BB DRAW AND HOLD Received in BB 04/08/2025 7:37 AM CDT [facility] Blood Venipuncture / Unknown 04/08/2025 7:14 AM CDT 04/08/2025 7:24 AM CDT Brian Pan MD LAB_1 Final Resu lt [facility] [address] [place], [place] [address] * Hemoglobin for all patients that have a Draw and Hold, Type and Screen, or Type and Cross ordered (04/08/2025 7:14 AM CDT) [facility] Hemoglobin 16.0 13.5 - 17.5 g/dL 04/08/2025 7:28 AM CDT [facility] Blood Venipuncture / Unknown 04/08/2025 7:14 AM CDT 04/08/2025 7:24 AM CDT Brian Pan MD LAB_1 Final Resu lt Performing Organization Address City/[facility]/ZIP Co de Phone Number [facility] [address] * (ABNORMAL) Hgb A1C (04/08/2025 7:14 AM CDT) Hemoglobin A1C 6.5(H) <=5.6 % 04/08/2025 12:16 PM CDT [facility] Estimated Average Glucose (Calc) 140 < 117 mg/dL 04/08/2025 12:16 PM CDT [facility] Comment:Estimated average gl ucose (eAG) converts A1c into glucose units (mg/dL) and estimates average glucose over the past approximately 3 months. The eAG reference interval (<117 mg/dL) corresponds to an A1c of <5.7%. Blood Venipuncture / Unknown 04/08/2025 7:14 AM CDT 04/08/2025 7:24 AM CDT [facility] - 04/08/2025 12:16 PM CDT For patients not previously diagnosed with diabetes: 5.7-6.4%: Increased risk for diabetes 6.5% and greater: Diagnostic for diabetes For patients diagnosed with diabetes: <8.0%: Goal of therapy for ages 18-75 Clinicians may recommend a higher or lower goal for specific individuals. Brian Pan MD LAB_1 Final Resu lt Performing Organization Address City/[facility]/ZIP Co de Phone Number [facility] [id number] [place] [address] * POTASSIUM (04/08/2025 7:14 AM CDT) Potassium 4.2 3.5 - 5.1 mmol/L 04/08/2025 7:44 AM CDT [facility] Blood Venipuncture / Unknown 04/08/2025 7:14 AM CDT 04/08/2025 7:24 AM CDT Brian Pan MD LAB_1 Final Resu lt Performing Organization Address [facility]/ZIP Co de Phone Number [facility] [address] [place], [place] [address] * EKG (04/08/2025) us Interface Provider MD EKG Final Resu lt * MRSA/MSSA Pre-Op Culture (Nares, left & right) (03/26/2025 9:15 AM CDT) Staph aureus Culture (SACUL) No Staphylococcus aureus Isolated 03/27/2025 4:44 PM CDT [facility] Swab (Source Required) ENTIRE ANTERIOR NARIS / Unknown Non-blood Collection / Unknown 03/26/2025 9:15 AM CDT 03/26/2025 9:20 AM CDT Brian Pan MD LAB_1 Final Resu Performing Organization Address [facility]/ZIP Co de Phone Number [facility] [address] [place] [address], [facility] * MR Hip Lt WO IV [...] ET PROE LEFT HIP REPLACEMENT EDUCATION [place] [address] [place] [address] MEDICARE SUPPLEMENT MEDICARE MEDICARE SUPPLEMENT MEDICARE Advance Directives Documents on File Type Date Recorded Patient Stone Breaker Expl anation HEALTHCARE DIRECTIVE 09/15/2019 [facility] ARE DIRECTIVE * Full Code (Latest Code Status on File) Date Activated Date Inactivated Comments 04/08/2025 1:00 PM 04/09/2025 4:12 PM * Full Code Date Activated Date Inactivated Comments 09/14/2024 10:17 AM 09/14/2024 1:46 PM * Full Code Date Activated Date Inactivated Comments 12/12/2020 2:51 PM 12/12/2020 8:21 PM Full code in e ffect for 30 days Care Teams Ranch Rider Relationship Specialty Start Date End Date Romulo Zimmer [place] [address] [place] [address] PCP - General Family Practice 04/15/24
--- OUTSIDE RECORDS SUMMARY | 2025-06-09 00:16 | XMS_ITS | Clinical Summary ---
Author Organization [facility] Address [address] [place] [address] Care Team Providers Care Rn Postpartum Name Role Phone Romulo Zimmer MD Primary Care Provider [phone] Allergies No known active allergies Medications ascorbic [...] Department Care Team Description 05/09/2025 Orders Only [facility] Scanner 1 scan: (1-Ord) [facility], XR HIP LT MIN 2V, 05/09/2025 04/21/2025 9:15 AM CDT Office Visit [facility] [address] [facility] [place] [address] Romulo Zimmer MD Medicare ANNUAL (subsequent) Visit (75 Year Old Male ) 04/21/2025 Travel 04/17/2025 Travel 04/02/2025 Telephone [facility] [address] [facility] [place] [address] Romulo Zimmer MD Lab (Lab orders needed) 03/23/2025 2:45 PM CDT Office Visit [facility] [address] [place] [address] Romulo Zimmer MD Preoperative Exam (Left hip surgery 04/08/2025) 03/23/2025 Travel 03/23/2025 Telephone [facility] [address] [place] [address] Romulo Zimmer MD Questions (recommendation) from Last [...] on file Legal Sex Male 5:24 AM MARINA MANAGER Gender Identity Not on file Sexual Orientation [...] st Contact Info) Description 08/10/2025 7:30 AM MARINA MANAGER Orders Only [facility] [address] [place] [address] [place], [place] 08/13/2025 10:30 AM MARINA MANAGER Office Visit [facility] [address] [place] [address] Romulo Zimmer MD [address] [place] [address] Health Maintenance Due Date Last Done Comments [...] this topic Medical Devices Implanted Type Area Electronics Design Engineer Device Identifier Shelf Expiration Date Model / Serial / Lot Infrapubic Zero Degree Angle Cylinder Set W/Pump 22cm Implanted:Qty: 1 on 02/20/2022 by Torres Aguilera MD at [facility] N/A: Penis 12/11/2026 [id number] / / [id number] Description:INFRAPUBIC ZERO DEGREE ANGLE CYLINDER SET W/PUMP 22CM Cl [place] 125cc Implanted:Qty: 1 on 02/20/2022 by Torres Aguilera MD at [facility] N/A: Penis 11/13/2026 [id number] / / [id number] Description:CL RESERVOIR 125 CC Kit Asbly Std Implnt Penile Titan Implanted:Qty: 1 on 02/20/2022 by Torres Aguilera MD at [facility] N/A: Penis 10/11/2026 [id number] / / [id number] Description:Kit Asbly Std Im plnt Penile Titan [...] PM CDT) CHOLESTEROL, TOTAL 168 <200 mg/dL [facility] HDL CHOLESTEROL 58 > OR = 40 mg/dL [facility] TRIGLYCERIDES 87 <150 mg/dL [facility] LDL-CHOLESTEROL 92 mg/dL (calc) [facility] Comment: Reference range: <100 Desirable range <100 mg/dL for primary prevention; <70 mg/dL for patients with CHD or diabetic patients with > or = 2 CHD risk factors. LDL-C is now calculated using the Jarred-Dirk calculation, which is a validated novel method providing better accuracy than the Friedewald equation in the estimation of LDL-C. Jarred TILLMAN et al. CAR. 2013;310(19): 8373-8430 (http://education.[employer]/faq/CUF831) CHOL/HDLC RATIO 2.9 <5.0 (calc) [facility] NON HDL CHOLESTEROL 110 <130 mg/dL (calc) [facility] Comment: For patients with diabetes plus 1 major ASCVD risk factor, treating to a non-HDL-C goal of <100 mg/dL (LDL-C of <70 mg/dL) is considered a therapeutic option. Blood BLOOD SPECIMEN / Unknown 03/23/2025 4:10 PM CDT 03/23/2025 4:10 PM CDT Romulo Zimmer MD CHEMISTRY Final Resu lt Performing Organization Address [facility]/ZIP Co de Phone Number [facility] [address] [place] [address], [facility] [address] [place] [address] * BASIC METABOLIC PANEL (03/23/2025 4:10 PM CDT) Pathologist [facility] GLUCOSE 98 65 - 99 mg/dL [facility] [...] CHEMISTRY Final Resu lt Performing Organization Address [facility]/ZIP Co de Phone Number [facility] [address] [place] [address], [place] [phone] [facility] [address] [place] [address] * HEMOGLOBIN (03/23/2025 4:08 PM CDT) [facility] HEMOGLOBIN 15.4 13.2 - 17.1 g/dL [facility] Blood BLOOD SPECIMEN / Unknown 03/23/2025 4:08 PM CDT 03/23/2025 4:09 PM CDT Romulo Zimmer MD HEMATOLOGY Final Resu lt [facility] [address] [place] [address], [facility] [address] [place] [address] * ANTI HCV (02/01/2022 8:05 AM CDT) [facility] HEPATITIS C ANTIBODY Non-React seth Non-React seth 02/01/2022 6:35 PM CDT [facility] Comment:Antibodies to HCV no t detected; does not exclude the possibility of exposure to HCV. Blood BLOOD SPECIMEN / Unknown Venipuncture / Unknown 02/01/2022 8:05 AM CDT 02/01/2022 8:11 AM CDT Romulo Zimmer MD SEND OUTS Final Resu lt [facility] [address] [place] [address], [place] from Last 3 Months or Most Recently Relevant to Health Maintenance Insurance MEDICARE PART A HB ONLY MEDICARE PART B HB ONLY MEDICARE PB ONLY [facility] COMMERCIAL on file Advance Directives Documents on File Type Date Recorded Patient Deli Cutter Slicer Expl anation Healthcare Directive 09/23/2019 12:00 AM 09/15/2019 * Full Code (Latest Code Status on File) Date Activated Date Inactivated Comments 02/20/2022 6:49 AM 02/20/2022 3:56 PM Question Answer Comments Code Status Discussion: Unable to Assess Preferences, Provider to review later Care Teams Rn Postpartum Relationship Specialty Start Date End Date Romulo Zimmer MD [address] [place] [address] PCP - General 10/11/06
[2025-06-09] MEDS: PROPOFOL 10 MG/ML INJ 100 MG IVP (00:19)
[2025-06-09] MEDS: PROPOFOL 10 MG/ML INJ 20 MG IVP (00:22)
--- NOTE | 2025-06-09 00:23 | CRLHL7_ITS ---
For Patients: As a result of the Century Cures Act, medical imaging exams and procedure reports are released immediately into your electronic medical record. You may view this report before your referring provider. If you have questions, please contact your health care provider. INDICATION: Post reduction. TECHNIQUE: Left hip 1 view. COMPARISON: Left hip radiograph 06/08/2025. FINDINGS: Left total hip arthroplasty in place. There has been reduction of the previously seen left hip dislocation, with components in normal alignment. Hardware appears intact. No acute fracture identified. Small soft tissue calcifications lateral to the proximal femur. Partially visualized radiopaque penile implant. IMPRESSION: Reduction of the previously seen dislocated left DEEJAY. No fracture identified. Dictated by Sola Mckenna MD @ 06/09/2025 12:59:53 AM (Electronically Signed)
--- NOTE | 2025-06-09 00:34 | ED.GENADULT ---
HPI - General Adult General Date Seen: 06/09/25 Chief complaint: Hip Injury/Pain Stated complaint: hip injury Time Seen by Provider: 06/08/25 23:49 Source: patient, EMS and old records reviewed Mode of arrival: ambulatory Limitations: no limitations History of Present Illness HPI narrative: Pleasant 75-year-old gentleman with a past medical history of hypertension, dyslipidemia, right knee replacement, left hip replacement and previous slept hip prosthetic dislocation. Patient reports that he had his left hip replaced by surgeon through the [facility] system in early April, about 2 months ago. On May 09 he suffered an accidental dislocation of his left hip and was seen here in the [facility]. We were able to relocate his hip. He was sent home with an abduction pillow. Tonight he was doing some exercises on the floor when he felt his hip dislocated again. He has been having intense left hip pain ever since the dislocation. He called EMS. They report that he was able to get himself, largely unaided, off the floor and into a chair. They established an IV and gave some meds for pain in route. He now says his pain is improved quite a bit down to a 4/10. No numbness or weakness in his leg. Related Data Home Medications ?Medication ?Instructions ?Recorded ?Confirmed amlodipine 5 mg tablet 5 mg PO DAILY 06/04/24 05/09/25 atorvastatin 40 mg tablet 40 mg PO DAILY 06/04/24 05/09/25 lisinopril 20 1 tab PO DAILY 06/04/24 05/09/25 mg-hydrochlorothiazide 12.5 mg tablet Allergies Allergy/AdvReac Type Severity Reaction Status Date / Time No Known Drug Allergies Allergy Verified 06/08/25 23:56 Exam Narrative: Exam Narrative: Constitutional: Appears well-developed and well-nourished. Alert. Conversant. Non toxic. HENT: Head: Atraumatic. Nose: Nose normal. Mouth/Throat: Oral mucosa is clear and moist. no trismus. Pharynx normal. Mallampati score 3 Tonsils symmetric. No tonsillar enlargement, erythema, or exudate. Eyes: Conjunctivae normal. EOM normal. Pupils equal, round, and reactive to light. No scleral icterus. Neck: Normal range of motion. Neck supple. No tracheal deviation present. Cardiovascular: Normal rate, regular rhythm. No gallop. No friction rub. No murmur heard. Symmetric PT artery pulses Pulmonary/Chest: Effort normal. No stridor. No respiratory distress. No wheezes. No rales. No rhonchi . No tenderness. Abdominal: Soft. No distension. No mass. No tenderness. No rebound. No guarding. Musculoskeletal: RUE: Normal range of motion. No tenderness. No deformity LUE: Normal range of motion. No tenderness. No deformity RLE: Normal range of motion. No edema. No tenderness. No deformity LLE: Left hip is internally rotated and left leg is foreshortened by about 2-3 cm compared to the right. Range of motion the hip and knee are limited by pain. He does have intact plantar flexion and dorsiflexion at the ankle and ankle intact wiggling in his foot. Normal distally sensory function on the medial and lateral malleoli, dorsal 1st webspace, sole of the foot. Normal distal cap refill. Neurological: Alert and oriented to person, place, and time. Normal strength. CN II-VII intact. No sensory deficit. GCS eye subscore is 4. GCS verbal subscore is 5. GCS motor subscore is 6. Normal coordination Skin: Skin is warm and dry. No rash noted. No pallor. Normal capillary refill. Psychiatric: Normal mood. Normal affect. Const: Vital Signs, click to edit/add: Vital Signs - 24 hr 06/08/25 23:52 06/08/25 23:53 06/09/25 00:06 Temperature 98.5 F Pulse Rate Pulse Rate [Right Pulse Oximeter] 68 Respiratory Rate 20 18 Blood Pressure 143/86 H Blood Pressure [Le ft Upper Arm] 154/90 H Pulse Oximetry 96 94 Oxygen Delivery Me thod Room Air Room Air Oxygen Flow Rate 06/09/25 00:07 06/09/25 00:08 06/09/25 00:12 Temperature Pulse Rate 65 64 66 Pulse Rate [Right Pulse Oximeter] Respiratory Rate 20 9 L 18 Blood Pressure 163/85 H 159/95 H Blood Pressure [Le ft Upper Arm] Pulse Oximetry 97 96 97 Oxygen Delivery Me thod Nasal Cannula Oxygen Flow Rate 2 06/09/25 00:15 06/09/25 00:18 06/09/25 00:20 Temperature Pulse Rate 68 68 65 Pulse Rate [Right Pulse Oximeter] Respiratory Rate 22 23 19 Blood Pressure 165/97 H 164/87 H Blood Pressure [Le ft Upper Arm] Pulse Oximetry 96 96 96 Oxygen Delivery Me thod Oxygen Flow Rate 06/09/25 00:22 06/09/25 00:27 06/09/25 00:30 Temperature Pulse Rate 73 64 61 Pulse Rate [Right Pulse Oximeter] Respiratory Rate 18 12 18 Blood Pressure 128/90 H 106/69 Blood Pressure [Le ft Upper Arm] Pulse Oximetry 93 94 94 Oxygen Delivery Me thod Nasal Cannula Oxygen Flow Rate 4 06/09/25 00:32 06/09/25 00:37 06/09/25 00:42 Temperature Pulse Rate 60 63 64 Pulse Rate [Right Pulse Oximeter] Respiratory Rate 16 25 H 18 Blood Pressure 115/66 122/65 136/76 Blood Pressure [Le ft Upper Arm] Pulse Oximetry 94 96 96 Oxygen Delivery Me thod Oxygen Flow Rate 06/09/25 00:45 06/09/25 00:47 Temperature Pulse Rate 65 64 Pulse Rate [Right Pulse Oximeter] Respiratory Rate 14 18 Blood Pressure 147/75 H Blood Pressure [Le ft Upper Arm] Pulse Oximetry 96 96 Oxygen Delivery Me thod Oxygen Flow Rate Course Vital Signs Vital signs: Initial Vital Signs Respiratory Effort Normal 06/08/25 23:52 Respiratory Depth Normal 06/08/25 23:52 Respiratory Pattern Normal 06/08/25 23:52 Pulse Oximetry 96 06/08/25 23:52 Oxygen Delivery Method Room Air 06/08/25 23:52 Vital Signs Pulse Oximetry 96 06/08/25 23:52 Oxygen Delivery Method Room Air 06/08/25 23:52 Temperature 98.5 F 06/08/25 23:53 Pulse Rate 64 06/09/25 00:47 Respiratory Rate 18 06/09/25 00:47 Blood Pressure 147/75 H 06/09/25 00:47 Pulse Oximetry 96 06/09/25 00:47 Oxygen Delivery Method Nasal Cannula 06/09/25 00:22 Oxygen Flow Rate 4 06/09/25 00:22 Medical Decision Making MDM Narrative Medical decision making narrative: Pleasant 75-year-old gentleman brought to the ER today by EMS with left hip pain and 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 IV had already been started by EMS any received pain meds in route to the point where he was still having pain but comfortable. We did do a stat portable x-ray of the hip and pelvis that confirmed dislocation. Patient underwent procedural sedation by my partner Dr. Gutierrez and I performed closed reduction of his left hip. Post sedation precautions reviewed. Patient is placed into a knee immobilizer to help reduce range of motion in the hip and prevent recurrent dislocation. At this point he is stable for discharge home with his family. Would recommend close outpatient follow-up with his orthopedic surgeon at [facility]. Since he has now had 2 postoperative dislocations for this hip, will need orthopedic consultation to consider revision surgery. At this point he is pain controlled, neurovascularly intact, and stable to discharge home for outpatient follow-up. Discharge Plan Discharge Clinical Impression: Closed dislocation of left hip Patient Disposition: Home, Self-Care Condition: Stable Instructions: Moderate Sedation (ED), Hip Dislocation (ED) Additional Instructions: As we discussed, please do not drive or operate machinery for 6 hours because you will be a little bit drowsy after the sedatives. Please wear the knee immobilizer when you are up and around. This will help limit range of motion in your leg and hip and hopefully will help prevent another dislocation. Please follow-up with your orthopedic surgeon for recheck as soon as possible. Call tomorrow morning to arrange an ER follow-up visit with your surgeon. If you have any trouble, especially numbness or weakness in your leg, worsening hip pain, another episode of dislocation, or if you have any other problems, please come back to the ER right away. Prescriptions: No Action lisinopril-hydrochlorothiazide 20-12.5 mg tablet 1 tab PO DAILY atorvastatin 40 mg tablet 40 mg PO DAILY amlodipine 5 mg tablet 5 mg PO DAILY Follow Up/Referrals: Romulo Zimmer MD [Primary Care Provider, Family Practice] Stand Alone Forms: [facility] Info Instructions Procedures Orthopedic Joint Reduction Left hip dislocation: Written consent by: patient Joint Reduction Location: hip Manipulation used?: Yes Analgesia: procedural sedation Shoulder Technique Used (if applicable): other (Combination of the Captain Mike technique and direct traction with counter traction by nursing on the pelvis. The left hip was felt to slide gently out to length and with a soft clunk relocated into the acetabulum. Subsequently the patient had improved range of motion in his hip and knee. Hi)
== END 2025-06-09 01:28 | disposition home or self-care (01) ==
PROVIDERS: Emergency Provider Family Medicine; PCP Family Medicine
DX: T84.021A Dislocation of internal left hip prosthesis, initial encounter (principal)
CPT/HCPCS: 27266; 73501; 73502; 99156; 99284; 99291; J2704; J7030

== ENCOUNTER 2025-06-15 07:30 | Outpatient (RCR) | payer MEDICARE, BC, SELFPAY | END 2025-08-02 14:39 | disposition home or self-care (01) | PROVIDERS: PCP Family Medicine; Visit Provider Orthopaedic Surgery | DX: Z48.89 Encounter for other specified surgical aftercare (principal); Z96.641 Presence of right artificial hip joint; M25.551 Pain in right hip; M62.81 Muscle weakness (generalized); Z51.89 Encounter for other specified aftercare | CPT/HCPCS: 97110; 97161; 97530 ==